=== PATIENT | male | born 1955 | race Caucasian/White ===

== ENCOUNTER 2017-07-07 07:32 | Emergency (ER) | payer MEDICARE, OTHER ==
[~2017-07-07] VITALS: Ht 175.3 cm; Wt 86.4 kg
[2017-07-07] MEDS ORDERED: normal saline 1000ML IV soln IVB ONE (08:05)
[2017-07-07] MEDS ORDERED: albuterol 2.5 MG/3 ML nebule NEB ONE (08:05)
[2017-07-07] MEDS ORDERED: ipratropium/albuterol 3ml nebule NEB ONE (08:05)
[2017-07-07 08:25] LABS: BASOPHILS % (AUTO) 0.7 % (0-1); EOSINOPHILS # (AUTO) 0.4 X10'3 (0-0.9); EOSINOPHILS % (AUTO) 5.4 % (0-6); HEMATOCRIT 43.1 % (42.0-52.0); HEMOGLOBIN 15.1 g/dl (14.0-17.9); LYMPHOCYTES # (AUTO) 1.9 X10'3 (1.1-4.8); LYMPHOCYTES % (AUTO) 28.9 % (21-51); MEAN CORPUSCULAR HEMOGLOBIN 32.4 PG (27.0-31.0); MEAN CORPUSCULAR HGB CONC 35.1 % (33.0-36.5); MEAN CORPUSCULAR VOLUME 92.4 FL (78-98); MEAN PLATELET VOLUME 8.1 FL (7.4-10.4); MONOCYTES # (AUTO) 0.6 X10'3 (0-0.9); MONOCYTES % (AUTO) 9.2 % (2-12); NEUTROPHILS # (AUTO) 3.7 X10'3 (1.8-7.7); NEUTROPHILS % (AUTO) 55.8 % (42-75); PLATELET COUNT 125 X10'3 (140-440); RED BLOOD COUNT 4.67 X10'6 (4.70-6.10); RED CELL DISTRIBUTION WIDTH 18.2 % (11.5-14.5); WHITE BLOOD COUNT 6.7 X10'3 (4.5-11.0)
[2017-07-07 08:36] LABS: INR 1.2 INR; PARTIAL THROMBOPLASTIN TIME 30 SECONDS (22-32); PROTHROMBIN TIME 12.4 SECONDS (9.0-12.0)
[2017-07-07 08:47] LABS: ALANINE AMINOTRANSFERASE 47 U/L (12-78); ALBUMIN 2.9 G/DL (3.4-5.0); ALBUMIN/GLOBULIN RATIO 0.6 (1.1-1.5); ALKALINE PHOSPHATASE 35 IU/L (46-116); ANION GAP 5 (8-16); ASPARTATE AMINO TRANSFERASE 108 U/L (10-37); BILIRUBIN,TOTAL 1.5 MG/DL (0.1-1.0); BLOOD UREA NITROGEN 8 MG/DL (7-18); CALCIUM 8.3 MG/DL (8.5-10.1); CHLORIDE 108 MMOL/L (99-107); CREATININE 1.14 MG/DL (0.60-1.10); GLUCOSE 80 MG/DL (70-104); POTASSIUM 3.6 MMOL/L (3.5-5.1); SODIUM 143 MMOL/L (135-145); TOTAL CARBON DIOXIDE 30.4 MMOL/L (24-32); TOTAL PROTEIN 7.9 G/DL (6.4-8.2); eGFR 66 ML/MIN
[2017-07-07] MEDS ORDERED: LACT10SO PO (08:59)
[2017-07-07 09:08] LABS: CLARITY,URINE CLEAR (Clear); COLOR,URINE YELLOW (Yellow); GLUCOSE, URINE NEGATIVE (Neg); KETONES,URINE NEGATIVE (Neg); LEUKOCYTE ESTERASE ,URINE NEGATIVE (Neg); NITRITES, URINE NEGATIVE (Neg); OCCULT BLOOD,URINE NEGATIVE (Neg); PROTEIN,URINE NEGATIVE (Neg); UA COLLECTION TYPE NON-SPECIFIED
[2017-07-07 09:44] VITALS: BP 161/98
== END 2017-07-07 09:47 | disposition home or self-care (01) ==
LOC: ER 07:32
DX: K72.90 Hepatic failure, unspecified without coma (principal); E03.9 Hypothyroidism, unspecified; J44.9 Chronic obstructive pulmonary disease, unspecified; G89.29 Other chronic pain; F17.200 Nicotine dependence, unspecified, uncomplicated; Z60.2 Problems related to living alone; Z79.899 Other long term (current) drug therapy
CPT/HCPCS: 36415; 71045; 80053; 81003; 82140; 85025; 85610; 85730; 93005; 94640; 94760; 96360; 99285; J7030

== ENCOUNTER 2017-12-12 13:12 | Inpatient (IN) | payer MEDICARE, MEDICAID ==
[~2017-12-12] VITALS: Ht 175.3 cm; Wt 78.0 kg
[~2017-12-12 13:12] MED LIST: LACT10SO PO; LEVO200T8 PO
[2017-12-12 14:33] LABS: BASOPHILS % (AUTO) 0.2 % (0-1); EOSINOPHILS # (AUTO) 0.2 X10'3 (0-0.9); EOSINOPHILS % (AUTO) 2.2 % (0-6); HEMATOCRIT 38.8 % (42.0-52.0); HEMOGLOBIN 13.8 g/dl (14.0-17.9); LYMPHOCYTES # (AUTO) 1.3 X10'3 (1.1-4.8); LYMPHOCYTES % (AUTO) 14.3 % (21-51); MEAN CORPUSCULAR HEMOGLOBIN 33.1 PG (27.0-31.0); MEAN CORPUSCULAR HGB CONC 35.4 % (33.0-36.5); MEAN CORPUSCULAR VOLUME 93.3 FL (78-98); MEAN PLATELET VOLUME 7.7 FL (7.4-10.4); MONOCYTES # (AUTO) 0.6 X10'3 (0-0.9); MONOCYTES % (AUTO) 6.4 % (2-12); NEUTROPHILS # (AUTO) 7.3 X10'3 (1.8-7.7); NEUTROPHILS % (AUTO) 76.9 % (42-75); PLATELET COUNT 113 X10'3 (140-440); RED BLOOD COUNT 4.16 X10'6 (4.70-6.10); RED CELL DISTRIBUTION WIDTH 17.7 % (11.5-14.5); WHITE BLOOD COUNT 9.4 X10'3 (4.5-11.0)
[2017-12-12 14:57] LABS: ALANINE AMINOTRANSFERASE 82 U/L (12-78); ALBUMIN 3.2 G/DL (3.4-5.0); ALBUMIN/GLOBULIN RATIO 0.8 (1.1-1.5); ALKALINE PHOSPHATASE 33 IU/L (46-116); ANION GAP 10 (8-16); ASPARTATE AMINO TRANSFERASE 148 U/L (10-37); BLOOD UREA NITROGEN 13 MG/DL (7-18); BUN/CREATININE RATIO 8.8 (5.4-32.0); CALCIUM 8.6 MG/DL (8.5-10.1); CHLORIDE 106 MMOL/L (99-107); CREATININE 1.48 MG/DL (0.60-1.10); GLUCOSE 92 MG/DL (70-104); POTASSIUM 3.5 MMOL/L (3.5-5.1); SODIUM 141 MMOL/L (135-145); TOTAL CARBON DIOXIDE 24.9 MMOL/L (24-32); eGFR 48 ML/MIN
[2017-12-12] MEDS ORDERED: normal saline 1000ML IV soln IVB ONE (15:05)
[2017-12-12] MEDS ORDERED: folic acid 1mg/0.2ml inj IV ONE (15:05)
[2017-12-12] MEDS ORDERED: thiamine 100mg/ml 2ml inj. IM ONE (15:05)
[2017-12-12 15:14] LABS: ETHANOL < 0.010 GM/DL (0.0-0.010)
[2017-12-12] MEDS ORDERED: levoTHYROXINE 100mcg tablet PO STA (16:00)
[2017-12-12] MEDS ORDERED: ALBU18HF2 (16:02)
[2017-12-12] MEDS ORDERED: CARV3.125 PO (16:02)
[2017-12-12] MEDS ORDERED: normal saline 1000ml 1,000 ML IV ONE (17:15)
[2017-12-12] MEDS ORDERED: nicotine 14mg patch - 24hr TD ONE (17:20)
[2017-12-12 17:28] LABS: CLARITY,URINE SLIGHTLY CLOUDY (Clear); COLOR,URINE BROWN (Yellow); GLUCOSE, URINE NEGATIVE (Neg); KETONES,URINE TRACE mg/dl (Neg); LEUKOCYTE ESTERASE ,URINE NEGATIVE (Neg); OCCULT BLOOD,URINE NEGATIVE (Neg); PH,URINE 5.5 (4.8-8.0); PROTEIN,URINE TRACE mg/dl (Neg)
[2017-12-12 17:33] LABS: UA COLLECTION TYPE URINAL
[2017-12-12 17:34] LABS: BACTERIA,URINE FEW /HPF (Neg); NITRITES, URINE NEGATIVE (Neg); RBC,URINE 0-2 /HPF (0-2); WBC,URINE 0-4 /HPF (0-4)
[2017-12-12 17:35] LABS: HYALINE CASTS 0-3 /LPF (NEGATIVE); MUCUS STRANDS FEW /LPF (Neg); SQUAMOUS EPITHELIAL CELL,UR FEW /LPF (FEW)
[2017-12-12 17:44] LABS: URINE AMPHETAMINE SCREEN NEGATIVE (Neg); URINE BARBITUATE SCREEN NEGATIVE (Neg); URINE BENZODIAZEPINES SCREEN NEGATIVE (Neg); URINE CANNABINOID SCREEN NEGATIVE (Neg); URINE COCAINE SCREEN NEGATIVE (Neg); URINE METHADONE SCREEN NEGATIVE (Neg); URINE OPIATE SCREEN POSITIVE (Neg); URINE PHENCYCLIDINE SCREEN NEGATIVE (Neg)
[2017-12-12] MEDS ORDERED: magnesium Cl slow-release 64mg tablet PO PRN (18:10)
[2017-12-12] MEDS ORDERED: magnesium 4gm in 100ml NS 100 ML IV PRN (18:10)
[2017-12-12] MEDS ORDERED: magnesium 1gm/100ml D5W IVPB 100 ML IV PRN (18:10)
[2017-12-12] MEDS ORDERED: acetaminophen 325mg tablet PO PRN (18:10)
[2017-12-12] MEDS ORDERED: mag hydrox/Alum hydrox/simeth 30ml oral suspension PO PRN (18:10)
[2017-12-12] MEDS ORDERED: potassium Cl 40MEQ/NS 500ml 500 ML IV PRN ×2 (18:10)
[2017-12-12] MEDS ORDERED: potassium Cl 20 mEq SR tablet PO PRN (18:10)
[2017-12-12] MEDS ORDERED: magnesium hydroxide 30ml (MOM) UD suspension PO PRN (18:10)
[2017-12-12 18:33] LABS: HEMOGLOBIN A1C 5.4 % (4.5-6.2)
[2017-12-12] MEDS: acetaminophen 325mg tablet PO PRN (19:14)
[2017-12-12] MEDS: sodium chloride 0.45% 1,000 ML IV SCH (19:20)
[2017-12-12] MEDS ORDERED: temazepam 15mg capsule PO PRN (21:00)
[2017-12-12] MEDS: heparin, porcine 5000 units/ml vial SQ SCH (22:32)
[2017-12-12] MEDS: lactulose 20gm/30ml cup PO SCH (22:32)
[2017-12-12 23:09] VITALS: BP 147/93
[2017-12-13] VITALS: BP 156/96
[2017-12-13] MEDS ORDERED: LORazepam 2 mg/ml vial IV PRN (05:35)
[2017-12-13] MEDS ORDERED: oxyCODONE IR 5mg (immed. release) tablet PO PRN (05:35)
[2017-12-13] MEDS: sodium chloride 0.45% 1,000 ML IV SCH ×2 (05:53→16:22)
[2017-12-13] MEDS: oxyCODONE IR 5mg (immed. release) tablet PO PRN ×2 (05:53→11:32)
[2017-12-13 06:07] LABS: BASOPHILS # (AUTO) 0.1 X10'3 (0-0.2); BASOPHILS % (AUTO) 0.9 % (0-1); EOSINOPHILS # (AUTO) 0.3 X10'3 (0-0.9); EOSINOPHILS % (AUTO) 4.8 % (0-6); HEMATOCRIT 39.7 % (42.0-52.0); HEMOGLOBIN 13.8 g/dl (14.0-17.9); LYMPHOCYTES # (AUTO) 1.7 X10'3 (1.1-4.8); LYMPHOCYTES % (AUTO) 31.1 % (21-51); MEAN CORPUSCULAR HEMOGLOBIN 32.3 PG (27.0-31.0); MEAN CORPUSCULAR HGB CONC 34.7 % (33.0-36.5); MEAN CORPUSCULAR VOLUME 93.2 FL (78-98); MEAN PLATELET VOLUME 8.1 FL (7.4-10.4); MONOCYTES # (AUTO) 0.5 X10'3 (0-0.9); MONOCYTES % (AUTO) 9.3 % (2-12); NEUTROPHILS % (AUTO) 53.9 % (42-75); PLATELET COUNT 107 X10'3 (140-440); RED BLOOD COUNT 4.26 X10'6 (4.70-6.10); RED CELL DISTRIBUTION WIDTH 16.3 % (11.5-14.5); WHITE BLOOD COUNT 5.6 X10'3 (4.5-11.0)
[2017-12-13 06:14] LABS: ALANINE AMINOTRANSFERASE 81 U/L (12-78); ALBUMIN 2.9 G/DL (3.4-5.0); ALBUMIN/GLOBULIN RATIO 0.7 (1.1-1.5); ALKALINE PHOSPHATASE 30 IU/L (46-116); ANION GAP 9 (8-16); ASPARTATE AMINO TRANSFERASE 149 U/L (10-37); BILIRUBIN,TOTAL 2.3 MG/DL (0.1-1.0); BLOOD UREA NITROGEN 9 MG/DL (7-18); CALCIUM 8.2 MG/DL (8.5-10.1); CHLORIDE 108 MMOL/L (99-107); GLUCOSE 72 MG/DL (70-104); SODIUM 142 MMOL/L (135-145); TOTAL CARBON DIOXIDE 25.4 MMOL/L (24-32); TOTAL PROTEIN 6.8 G/DL (6.4-8.2); eGFR 76 ML/MIN
[2017-12-13 06:21] LABS: CHOL/HDL RATIO 3.2 (0.00-4.99); CHOLESTEROL 198 MG/DL (0-200); HDL CHOLESTEROL 61 MG/DL (35-60); LDL CHOLESTEROL 127 MG/DL (50-100); MAGNESIUM 1.7 MG/DL (1.5-2.4); TRIGLYCERIDES 51 MG/DL (20-135)
[2017-12-13 06:23] LABS: POTASSIUM 3.5 MMOL/L (3.5-5.1)
[2017-12-13] MEDS ORDERED: levoTHYROXINE 100mcg tablet PO SCH (07:00)
[2017-12-13 07:30] VITALS: BP 153/93
[2017-12-13] MEDS: K and/or MAG REPLACEMENT MC SCH (08:00)
[2017-12-13] MEDS: heparin, porcine 5000 units/ml vial SQ SCH ×2 (08:26→20:10)
[2017-12-13] MEDS: lactulose 20gm/30ml cup PO SCH ×3 (08:26→20:10)
[2017-12-13] MEDS: carVEDilol 3.125mg tablet PO SCH (08:26)
[2017-12-13] MEDS: levoTHYROXINE 100mcg tablet PO SCH (08:28)
[2017-12-13 11:34] VITALS: BP 147/88
[2017-12-13] MEDS: naproxen 500mg tablet PO SCH (17:32)
[2017-12-13 20:00] VITALS: BP 138/0
[2017-12-14] VITALS: BP 137/71
[2017-12-14] MEDS: sodium chloride 0.45% 1,000 ML IV SCH ×3 (01:58→20:42)
[2017-12-14 06:36] LABS: BASOPHILS % (AUTO) 0.3 % (0-1); EOSINOPHILS # (AUTO) 0.3 X10'3 (0-0.9); EOSINOPHILS % (AUTO) 4.7 % (0-6); HEMATOCRIT 38.5 % (42.0-52.0); HEMOGLOBIN 13.6 g/dl (14.0-17.9); LYMPHOCYTES # (AUTO) 1.3 X10'3 (1.1-4.8); LYMPHOCYTES % (AUTO) 20.1 % (21-51); MEAN CORPUSCULAR HEMOGLOBIN 32.9 PG (27.0-31.0); MEAN CORPUSCULAR HGB CONC 35.5 % (33.0-36.5); MEAN CORPUSCULAR VOLUME 92.7 FL (78-98); MEAN PLATELET VOLUME 7.9 FL (7.4-10.4); MONOCYTES # (AUTO) 0.6 X10'3 (0-0.9); NEUTROPHILS # (AUTO) 4.3 X10'3 (1.8-7.7); NEUTROPHILS % (AUTO) 65.9 % (42-75); PLATELET COUNT 102 X10'3 (140-440); RED BLOOD COUNT 4.15 X10'6 (4.70-6.10); RED CELL DISTRIBUTION WIDTH 17.3 % (11.5-14.5); WHITE BLOOD COUNT 6.5 X10'3 (4.5-11.0)
[2017-12-14 06:55] LABS: ALANINE AMINOTRANSFERASE 67 U/L (12-78); ALBUMIN 2.8 G/DL (3.4-5.0); ALBUMIN/GLOBULIN RATIO 0.7 (1.1-1.5); ALKALINE PHOSPHATASE 36 IU/L (46-116); ANION GAP 8 (8-16); ASPARTATE AMINO TRANSFERASE 123 U/L (10-37); BILIRUBIN,TOTAL 2.7 MG/DL (0.1-1.0); BLOOD UREA NITROGEN 9 MG/DL (7-18); BUN/CREATININE RATIO 8.5 (5.4-32.0); CALCIUM 7.8 MG/DL (8.5-10.1); CHLORIDE 105 MMOL/L (99-107); CREATININE 1.06 MG/DL (0.60-1.10); GLUCOSE 79 MG/DL (70-104); MAGNESIUM 1.5 MG/DL (1.5-2.4); POTASSIUM 3.4 MMOL/L (3.5-5.1); SODIUM 137 MMOL/L (135-145); TOTAL CARBON DIOXIDE 23.9 MMOL/L (24-32); TOTAL PROTEIN 6.6 G/DL (6.4-8.2); eGFR 71 ML/MIN
[2017-12-14 07:42] VITALS: BP 131/78
[2017-12-14] MEDS: K and/or MAG REPLACEMENT MC SCH (08:00)
[2017-12-14] MEDS: heparin, porcine 5000 units/ml vial SQ SCH ×2 (08:00→20:00)
[2017-12-14] MEDS: lactulose 20gm/30ml cup PO SCH ×3 (08:20→20:33)
[2017-12-14] MEDS: naproxen 500mg tablet PO SCH ×2 (08:21→16:28)
[2017-12-14] MEDS: carVEDilol 3.125mg tablet PO SCH (08:22)
[2017-12-14] MEDS: levoTHYROXINE 100mcg tablet PO SCH (08:26)
[2017-12-14] MEDS: potassium Cl 20 mEq SR tablet PO PRN ×3 (08:29→22:51)
[2017-12-14] MEDS: ondansetron/PF 4mg/2ml inj IV PRN (11:37)
[2017-12-14 12:10] VITALS: BP 134/88
[2017-12-14 20:00] VITALS: BP 123/71
[2017-12-15] VITALS: BP 113/68
[2017-12-15 05:42] LABS: BASOPHILS % (AUTO) 0.3 % (0-1); EOSINOPHILS # (AUTO) 0.3 X10'3 (0-0.9); EOSINOPHILS % (AUTO) 4.4 % (0-6); HEMATOCRIT 39.4 % (42.0-52.0); HEMOGLOBIN 13.8 g/dl (14.0-17.9); LYMPHOCYTES # (AUTO) 1.4 X10'3 (1.1-4.8); LYMPHOCYTES % (AUTO) 17.6 % (21-51); MEAN CORPUSCULAR HGB CONC 35.1 % (33.0-36.5); MONOCYTES # (AUTO) 0.8 X10'3 (0-0.9); MONOCYTES % (AUTO) 10.4 % (2-12); NEUTROPHILS # (AUTO) 5.2 X10'3 (1.8-7.7); NEUTROPHILS % (AUTO) 67.3 % (42-75); PLATELET COUNT 89 X10'3 (140-440); RED BLOOD COUNT 4.19 X10'6 (4.70-6.10); RED CELL DISTRIBUTION WIDTH 17.5 % (11.5-14.5); WHITE BLOOD COUNT 7.7 X10'3 (4.5-11.0)
[2017-12-15 06:04] LABS: ALANINE AMINOTRANSFERASE 68 U/L (12-78); ALBUMIN 2.7 G/DL (3.4-5.0); ALBUMIN/GLOBULIN RATIO 0.7 (1.1-1.5); ALKALINE PHOSPHATASE 40 IU/L (46-116); ANION GAP 6 (8-16); ASPARTATE AMINO TRANSFERASE 110 U/L (10-37); BILIRUBIN,TOTAL 1.9 MG/DL (0.1-1.0); BLOOD UREA NITROGEN 9 MG/DL (7-18); CALCIUM 8.9 MG/DL (8.5-10.1); CHLORIDE 107 MMOL/L (99-107); CREATININE 1.12 MG/DL (0.60-1.10); GLUCOSE 74 MG/DL (70-104); MAGNESIUM 1.6 MG/DL (1.5-2.4); SODIUM 139 MMOL/L (135-145); TOTAL CARBON DIOXIDE 26.1 MMOL/L (24-32); TOTAL PROTEIN 6.4 G/DL (6.4-8.2); eGFR 67 ML/MIN
[2017-12-15 07:18] VITALS: BP 106/65
[2017-12-15] MEDS: K and/or MAG REPLACEMENT MC SCH (08:00)
[2017-12-15] MEDS: carVEDilol 3.125mg tablet PO SCH (08:00)
[2017-12-15] MEDS: heparin, porcine 5000 units/ml vial SQ SCH (08:00)
[2017-12-15] MEDS: levoTHYROXINE 100mcg tablet PO SCH (08:12)
[2017-12-15] MEDS: naproxen 500mg tablet PO SCH ×2 (08:12→15:45)
[2017-12-15] MEDS: lactulose 20gm/30ml cup PO SCH ×2 (08:13→13:04)
[2017-12-15] MEDS: sodium chloride 0.45% 1,000 ML IV SCH ×2 (08:15→16:06)
[2017-12-15] MEDS: acetaminophen 325mg tablet PO PRN (10:21)
[2017-12-15 12:41] VITALS: BP 132/75
[2017-12-15] MEDS: ondansetron/PF 4mg/2ml inj IV PRN (13:29)
[2017-12-15 15:48] LABS: HBSAG SCREEN Negative (Negative); HEP A AB, IGM Negative (Negative); HEP B CORE AB, IGM Negative (Negative); HEPATITIS C ANTIBODY 0.2 s/co ratio (0.0-0.9)
[2017-12-15] MEDS ORDERED: RIFA200T2 PO (16:02)
== END 2017-12-15 17:03 | disposition home or self-care (01) | DRG 442 ==
LOC: ER 13:13 → ED HOLD 18:06 → SUR 3N 22:00
PROVIDERS: ADMIT Family Medicine; ATTEND Internal Medicine
DX: K72.90 Hepatic failure, unspecified without coma (principal); R45.851 Suicidal ideations; N17.9 Acute kidney failure, unspecified; F33.2 Major depressive disorder, recurrent severe without psychotic features; E03.9 Hypothyroidism, unspecified; E86.0 Dehydration; F10.20 Alcohol dependence, uncomplicated; G89.29 Other chronic pain; M54.9 Dorsalgia, unspecified; F41.9 Anxiety disorder, unspecified; I10 Essential (primary) hypertension; J44.9 Chronic obstructive pulmonary disease, unspecified; K70.30 Alcoholic cirrhosis of liver without ascites; Z59.0 Homelessness; Z91.19 Patient's noncompliance with other medical treatment and regimen; Z79.899 Other long term (current) drug therapy
CPT/HCPCS: 36415; 70450; 71045; 76700; 80053; 80061; 80074; 80305; 80320; 81001; 82140; 83036; 83735; 84443; 84484; 85025; 87070; 93005; 96361; 96372; 96374; 97110; 97116; 97161; 97530; 97535; 99285; A6258; J1644; J2405; J3411; J3490; J7030

== ENCOUNTER 2017-12-15 15:15 | Inpatient (IN) | payer MEDICARE, MEDICAID ==
[~2017-12-15] VITALS: Ht 175.3 cm; Wt 95.5 kg
[~2017-12-15 15:15] MED LIST changes: +ALBU18HF2; +CARV3.125 PO
[2017-12-15] MEDS ORDERED: RIFA200T2 PO (16:02)
[2017-12-15] MEDS ORDERED: traZODone 50mg tablet PO PRN (17:50)
[2017-12-15] MEDS ORDERED: LORazepam 0.5 MG tablet PO PRN (17:50)
[2017-12-15 19:00] VITALS: BP 112/66
[2017-12-15] MEDS ORDERED: albuterol 2.5 MG/3 ML nebule NEB PRN (20:05)
[2017-12-15] MEDS ORDERED: magnesium hydroxide 30ml (MOM) UD suspension PO PRN (21:00)
[2017-12-15] MEDS ORDERED: mag hydrox/Alum hydrox/simeth 30ml oral suspension PO PRN (21:00)
[2017-12-16] MEDS: carVEDilol 3.125mg tablet PO SCH (07:40)
[2017-12-16] MEDS: levoTHYROXINE 100mcg tablet PO SCH (07:40)
[2017-12-16] MEDS: lactulose 20gm/30ml cup PO SCH (07:41)
[2017-12-16] MEDS: acetaminophen 325mg tablet PO PRN ×3 (07:41→22:24)
[2017-12-16] MEDS ORDERED: venlafaxine XR 37.5mg cap (Q24H) PO SCH (08:00)
[2017-12-16 08:15] VITALS: BP 114/75
[2017-12-16 09:44] LABS: CHOL/HDL RATIO 3.3 (0.00-4.99); CHOLESTEROL 177 MG/DL (0-200); HDL CHOLESTEROL 54 MG/DL (35-60); LDL CHOLESTEROL 113 MG/DL (50-100); TRIGLYCERIDES 60 MG/DL (20-135)
[2017-12-16 19:00] VITALS: BP 137/72
[2017-12-17] MEDS: acetaminophen 325mg tablet PO PRN (03:22)
[2017-12-17] MEDS: lactulose 20gm/30ml cup PO SCH (07:45)
[2017-12-17] MEDS: carVEDilol 3.125mg tablet PO SCH (07:45)
[2017-12-17] MEDS: venlafaxine XR 75mg capsule (Q24H) PO SCH (07:45)
[2017-12-17] MEDS: levoTHYROXINE 100mcg tablet PO SCH (07:45)
[2017-12-17 08:00] VITALS: BP 138/63
[2017-12-17 20:00] VITALS: BP 141/76
[2017-12-17] MEDS: lactobacillus rhamnosus 10,000 MMU CELLS/CAPSULE PO SCH (20:30)
[2017-12-17] MEDS: traMADol 50MG tablet PO PRN (20:32)
[2017-12-17] MEDS: traZODone 50mg tablet PO PRN (20:33)
[2017-12-18] MEDS: levoTHYROXINE 100mcg tablet PO SCH (07:12)
[2017-12-18 08:00] VITALS: BP 141/60
[2017-12-18] MEDS: carVEDilol 3.125mg tablet PO SCH (08:17)
[2017-12-18] MEDS: venlafaxine XR 75mg capsule (Q24H) PO SCH (08:17)
[2017-12-18] MEDS: lactobacillus rhamnosus 10,000 MMU CELLS/CAPSULE PO SCH ×2 (08:17→20:33)
[2017-12-18] MEDS: lactulose 20gm/30ml cup PO SCH (08:17)
[2017-12-18] MEDS: traMADol 50MG tablet PO PRN ×2 (08:52→19:17)
[2017-12-18 19:51] VITALS: BP 178/89
[2017-12-18] MEDS: traZODone 50mg tablet PO PRN (20:33)
[2017-12-19 07:45] VITALS: BP 161/77
[2017-12-19] MEDS: levoTHYROXINE 100mcg tablet PO SCH (07:50)
[2017-12-19] MEDS: lactulose 20gm/30ml cup PO SCH (07:50)
[2017-12-19] MEDS: venlafaxine XR 75mg capsule (Q24H) PO SCH (07:50)
[2017-12-19] MEDS: lactobacillus rhamnosus 10,000 MMU CELLS/CAPSULE PO SCH ×2 (07:50→20:53)
[2017-12-19] MEDS: carVEDilol 3.125mg tablet PO SCH (07:50)
[2017-12-19 20:00] VITALS: BP 149/87
[2017-12-19] MEDS: traZODone 50mg tablet PO PRN (20:54)
[2017-12-20 08:00] VITALS: BP 121/98
[2017-12-20] MEDS: lactulose 20gm/30ml cup PO SCH (08:00)
[2017-12-20] MEDS: carVEDilol 3.125mg tablet PO SCH (08:01)
[2017-12-20] MEDS: lactobacillus rhamnosus 10,000 MMU CELLS/CAPSULE PO SCH ×2 (08:01→20:53)
[2017-12-20] MEDS: venlafaxine XR 75mg capsule (Q24H) PO SCH (08:01)
[2017-12-20] MEDS: levoTHYROXINE 100mcg tablet PO SCH (08:01)
[2017-12-20] MEDS: traMADol 50MG tablet PO PRN (10:12)
[2017-12-20 20:00] VITALS: BP 160/84
[2017-12-21] MEDS: levoTHYROXINE 100mcg tablet PO SCH (07:28)
[2017-12-21 08:00] VITALS: BP 157/87
[2017-12-21] MEDS: lactobacillus rhamnosus 10,000 MMU CELLS/CAPSULE PO SCH ×2 (08:31→21:12)
[2017-12-21] MEDS: carVEDilol 3.125mg tablet PO SCH (08:31)
[2017-12-21] MEDS: lactulose 20gm/30ml cup PO SCH (08:32)
[2017-12-21] MEDS: venlafaxine XR 75mg capsule (Q24H) PO SCH (08:32)
[2017-12-21 19:49] VITALS: BP 133/70
[2017-12-21] MEDS: oxybutynin 5mg tablet PO SCH (21:12)
[2017-12-21] MEDS: traMADol 50MG tablet PO PRN (21:13)
[2017-12-21] MEDS: acetaminophen 325mg tablet PO PRN (21:14)
[2017-12-22] MEDS: traZODone 50mg tablet PO PRN (01:04)
[2017-12-22 02:30] VITALS: BP 153/79
[2017-12-22 02:31] VITALS: BP 150/70
[2017-12-22 02:32] VITALS: BP 144/81
[2017-12-22] MEDS: acetaminophen 325mg tablet PO PRN ×2 (03:10→19:19)
[2017-12-22] MEDS: levoTHYROXINE 100mcg tablet PO SCH (07:38)
[2017-12-22] MEDS: lactulose 20gm/30ml cup PO SCH (07:38)
[2017-12-22] MEDS: venlafaxine XR 75mg capsule (Q24H) PO SCH (07:38)
[2017-12-22] MEDS: oxybutynin 5mg tablet PO SCH ×2 (07:39→21:07)
[2017-12-22] MEDS: carVEDilol 3.125mg tablet PO SCH (07:39)
[2017-12-22] MEDS: lactobacillus rhamnosus 10,000 MMU CELLS/CAPSULE PO SCH ×2 (07:39→21:07)
[2017-12-22 08:56] VITALS: BP_SYST 110; BP_SYST 186; BP_DIAS 68; BP_DIAS 99
[2017-12-22 10:05] VITALS: BP 121/65
[2017-12-22] MEDS: traMADol 50MG tablet PO PRN ×3 (12:18→21:24)
[2017-12-22] MEDS ORDERED: tuberculin, purif. prot. deriv. 5 units/0.1ml ID ONE (17:45)
[2017-12-22 19:00] VITALS: BP 124/82
[2017-12-22] MEDS ORDERED: traZODone 50mg tablet PO PRN (20:25)
[2017-12-23] MEDS: lactulose 20gm/30ml cup PO SCH (07:41)
[2017-12-23] MEDS: levoTHYROXINE 100mcg tablet PO SCH (07:41)
[2017-12-23] MEDS: carVEDilol 3.125mg tablet PO SCH (07:41)
[2017-12-23] MEDS: lactobacillus rhamnosus 10,000 MMU CELLS/CAPSULE PO SCH ×2 (07:42→20:46)
[2017-12-23] MEDS: venlafaxine XR 75mg capsule (Q24H) PO SCH (07:42)
[2017-12-23] MEDS: oxybutynin 5mg tablet PO SCH ×2 (07:44→20:47)
[2017-12-23 08:15] VITALS: BP 137/104
[2017-12-23] MEDS: traMADol 50MG tablet PO PRN (19:14)
[2017-12-23] MEDS: acetaminophen 325mg tablet PO PRN (19:15)
[2017-12-23 20:00] VITALS: BP 105/72
[2017-12-23] MEDS: mirtazapine 15mg tablet PO SCH (20:47)
[2017-12-23 21:30] VITALS: BP 150/80
[2017-12-23 23:15] VITALS: BP 150/90
[2017-12-24] MEDS: lactulose 20gm/30ml cup PO SCH ×2 (07:47→21:51)
[2017-12-24] MEDS: oxybutynin 5mg tablet PO SCH ×2 (07:47→21:53)
[2017-12-24] MEDS: venlafaxine XR 75mg capsule (Q24H) PO SCH (07:48)
[2017-12-24] MEDS: lactobacillus rhamnosus 10,000 MMU CELLS/CAPSULE PO SCH ×2 (07:48→21:51)
[2017-12-24] MEDS: levoTHYROXINE 100mcg tablet PO SCH (07:48)
[2017-12-24] MEDS: carVEDilol 3.125mg tablet PO SCH (07:49)
[2017-12-24 08:00] VITALS: BP 106/62
[2017-12-24 09:39] VITALS: BP 138/92
[2017-12-24 09:41] VITALS: BP_SYST 132; BP_SYST 138; BP_SYST 144; BP_DIAS 78; BP_DIAS 89; BP_DIAS 92
[2017-12-24 18:49] LABS: BASOPHILS % (AUTO) 0.1 % (0-1); EOSINOPHILS # (AUTO) 0.3 X10'3 (0-0.9); EOSINOPHILS % (AUTO) 3.7 % (0-6); HEMATOCRIT 41.2 % (42.0-52.0); HEMOGLOBIN 14.3 g/dl (14.0-17.9); LYMPHOCYTES # (AUTO) 2.1 X10'3 (1.1-4.8); LYMPHOCYTES % (AUTO) 26.6 % (21-51); MEAN CORPUSCULAR HEMOGLOBIN 33.3 PG (27.0-31.0); MEAN CORPUSCULAR HGB CONC 34.7 % (33.0-36.5); MEAN CORPUSCULAR VOLUME 96.1 FL (78-98); MEAN PLATELET VOLUME 8.7 FL (7.4-10.4); NEUTROPHILS # (AUTO) 4.6 X10'3 (1.8-7.7); NEUTROPHILS % (AUTO) 56.6 % (42-75); PLATELET COUNT 132 X10'3 (140-440); RED BLOOD COUNT 4.29 X10'6 (4.70-6.10); RED CELL DISTRIBUTION WIDTH 18.3 % (11.5-14.5); WHITE BLOOD COUNT 8.1 X10'3 (4.5-11.0)
[2017-12-24 19:05] LABS: ALANINE AMINOTRANSFERASE 52 U/L (12-78); ALBUMIN 3.4 G/DL (3.4-5.0); ALBUMIN/GLOBULIN RATIO 0.7 (1.1-1.5); ALKALINE PHOSPHATASE 46 IU/L (46-116); ANION GAP 6 (8-16); ASPARTATE AMINO TRANSFERASE 54 U/L (10-37); BILIRUBIN,TOTAL 1.8 MG/DL (0.1-1.0); BLOOD UREA NITROGEN 15 MG/DL (7-18); BUN/CREATININE RATIO 14.7 (5.4-32.0); CALCIUM 8.9 MG/DL (8.5-10.1); CHLORIDE 105 MMOL/L (99-107); CREATININE 1.02 MG/DL (0.60-1.10); GLUCOSE 90 MG/DL (70-104); SODIUM 141 MMOL/L (135-145); TOTAL CARBON DIOXIDE 29.9 MMOL/L (24-32); TOTAL PROTEIN 8.1 G/DL (6.4-8.2); eGFR 74 ML/MIN
[2017-12-24 20:00] VITALS: BP 137/74
[2017-12-24] MEDS: mirtazapine 15mg tablet PO SCH (21:51)
[2017-12-25] MEDS: levoTHYROXINE 100mcg tablet PO SCH (07:06)
[2017-12-25 08:00] VITALS: BP 162/87
[2017-12-25] MEDS: carVEDilol 3.125mg tablet PO SCH (08:32)
[2017-12-25] MEDS: lactobacillus rhamnosus 10,000 MMU CELLS/CAPSULE PO SCH ×2 (08:32→20:56)
[2017-12-25] MEDS: lactulose 20gm/30ml cup PO SCH ×3 (08:33→20:56)
[2017-12-25] MEDS: venlafaxine XR 75mg capsule (Q24H) PO SCH (08:33)
[2017-12-25 14:00] VITALS: BP_SYST 119; BP_SYST 152; BP_SYST 161; BP_DIAS 73; BP_DIAS 84; BP_DIAS 91
[2017-12-25] MEDS ORDERED: lactulose 20gm/30ml cup PO ONE (15:10)
[2017-12-25 20:00] VITALS: BP_SYST 135; BP_SYST 145; BP_DIAS 77; BP_DIAS 81
[2017-12-25] MEDS: oxybutynin 5mg tablet PO SCH (20:54)
[2017-12-25] MEDS: mirtazapine 15mg tablet PO SCH (20:56)
[2017-12-26 08:00] VITALS: BP_SYST 110; BP_SYST 132; BP_SYST 151; BP_SYST 152; BP_DIAS 68; BP_DIAS 72; BP_DIAS 81; BP_DIAS 91
[2017-12-26] MEDS: carVEDilol 3.125mg tablet PO SCH (08:14)
[2017-12-26] MEDS: levoTHYROXINE 100mcg tablet PO SCH (08:15)
[2017-12-26] MEDS: lactobacillus rhamnosus 10,000 MMU CELLS/CAPSULE PO SCH ×2 (08:15→20:00)
[2017-12-26] MEDS: lactulose 20gm/30ml cup PO SCH ×3 (08:17→21:16)
[2017-12-26 09:03] LABS: INR 1.2 INR; PROTHROMBIN TIME 12.2 SECONDS (9.0-12.0)
[2017-12-26] MEDS: venlafaxine XR 75mg capsule (Q24H) PO SCH (09:12)
[2017-12-26 19:00] VITALS: BP 135/70
[2017-12-26 20:30] VITALS: BP 142/72
[2017-12-26] MEDS: oxybutynin 5mg tablet PO SCH (21:15)
[2017-12-26] MEDS: mirtazapine 15mg tablet PO SCH (21:16)
[2017-12-26 22:38] VITALS: BP 150/75
[2017-12-26 22:39] VITALS: BP 151/78
[2017-12-27 08:00] VITALS: BP_SYST 129; BP_SYST 130; BP_SYST 147; BP_SYST 152; BP_DIAS 65; BP_DIAS 74; BP_DIAS 80
[2017-12-27] MEDS: lactulose 20gm/30ml cup PO SCH ×3 (08:02→20:59)
[2017-12-27] MEDS: carVEDilol 3.125mg tablet PO SCH (08:03)
[2017-12-27] MEDS: levoTHYROXINE 100mcg tablet PO SCH (08:03)
[2017-12-27] MEDS: lactobacillus rhamnosus 10,000 MMU CELLS/CAPSULE PO SCH ×2 (08:03→20:58)
[2017-12-27] MEDS: venlafaxine XR 75mg capsule (Q24H) PO SCH (08:03)
[2017-12-27] MEDS ORDERED: tuberculin, purif. prot. deriv. 5 units/0.1ml ID ONE (08:30)
[2017-12-27 19:49] VITALS: BP 135/74
[2017-12-27] MEDS: mirtazapine 15mg tablet PO SCH (20:58)
[2017-12-27] MEDS: oxybutynin 5mg tablet PO SCH (20:58)
[2017-12-28] MEDS: levoTHYROXINE 100mcg tablet PO SCH (07:35)
[2017-12-28 08:00] VITALS: BP 129/54
[2017-12-28] MEDS: carVEDilol 3.125mg tablet PO SCH (08:07)
[2017-12-28] MEDS: venlafaxine XR 75mg capsule (Q24H) PO SCH (08:07)
[2017-12-28] MEDS: lactulose 20gm/30ml cup PO SCH ×3 (08:07→20:51)
[2017-12-28] MEDS: lactobacillus rhamnosus 10,000 MMU CELLS/CAPSULE PO SCH ×2 (08:07→20:49)
[2017-12-28 09:39] LABS: HBSAG SCREEN Negative (Negative)
[2017-12-28 12:32] VITALS: BP_SYST 110; BP_SYST 133; BP_DIAS 64; BP_DIAS 67; BP_DIAS 73
[2017-12-28 19:50] VITALS: BP 136/76
[2017-12-28 19:52] VITALS: BP 133/72
[2017-12-28 20:00] VITALS: BP 133/72
[2017-12-28] MEDS: oxybutynin 5mg tablet PO SCH (20:49)
[2017-12-28] MEDS: mirtazapine 15mg tablet PO SCH (20:49)
[2017-12-29 07:10] VITALS: BP 138/77
[2017-12-29] MEDS: levoTHYROXINE 100mcg tablet PO SCH (07:15)
[2017-12-29] MEDS: lactobacillus rhamnosus 10,000 MMU CELLS/CAPSULE PO SCH ×2 (07:15→20:59)
[2017-12-29] MEDS: venlafaxine XR 75mg capsule (Q24H) PO SCH (07:15)
[2017-12-29] MEDS: carVEDilol 3.125mg tablet PO SCH (07:15)
[2017-12-29] MEDS: lactulose 20gm/30ml cup PO SCH ×3 (07:15→20:57)
[2017-12-29 20:03] VITALS: BP 142/73
[2017-12-29] MEDS: mirtazapine 15mg tablet PO SCH (20:59)
[2017-12-29] MEDS: oxybutynin 5mg tablet PO SCH (21:50)
[2017-12-30] MEDS: lactobacillus rhamnosus 10,000 MMU CELLS/CAPSULE PO SCH ×2 (07:57→20:21)
[2017-12-30] MEDS: venlafaxine XR 75mg capsule (Q24H) PO SCH (07:58)
[2017-12-30] MEDS: levoTHYROXINE 100mcg tablet PO SCH (07:58)
[2017-12-30] MEDS: carVEDilol 3.125mg tablet PO SCH (07:58)
[2017-12-30] MEDS: lactulose 20gm/30ml cup PO SCH ×3 (07:59→20:22)
[2017-12-30 08:57] VITALS: BP 127/73
[2017-12-30] MEDS: acetaminophen 325mg tablet PO PRN (19:35)
[2017-12-30] MEDS: traMADol 50MG tablet PO PRN (19:35)
[2017-12-30 19:44] VITALS: BP 138/71
[2017-12-30] MEDS: mirtazapine 15mg tablet PO SCH (20:22)
[2017-12-30] MEDS: oxybutynin 5mg tablet PO SCH (20:22)
[2017-12-31] MEDS: acetaminophen 325mg tablet PO PRN (02:59)
[2017-12-31] MEDS: traMADol 50MG tablet PO PRN ×2 (03:00→14:19)
[2017-12-31 07:20] VITALS: BP 132/78
[2017-12-31] MEDS: levoTHYROXINE 100mcg tablet PO SCH (07:26)
[2017-12-31] MEDS: lactobacillus rhamnosus 10,000 MMU CELLS/CAPSULE PO SCH ×2 (07:27→20:00)
[2017-12-31] MEDS: lactulose 20gm/30ml cup PO SCH ×3 (07:27→22:18)
[2017-12-31] MEDS: venlafaxine XR 75mg capsule (Q24H) PO SCH (07:27)
[2017-12-31] MEDS: carVEDilol 3.125mg tablet PO SCH (07:27)
[2017-12-31 19:59] VITALS: BP 128/71
[2017-12-31] MEDS: mirtazapine 15mg tablet PO SCH (21:00)
[2017-12-31] MEDS: oxybutynin 5mg tablet PO SCH (21:00)
[2018-01-01] MEDS: lactobacillus rhamnosus 10,000 MMU CELLS/CAPSULE PO SCH ×2 (07:43→20:53)
[2018-01-01] MEDS: levoTHYROXINE 100mcg tablet PO SCH (07:43)
[2018-01-01] MEDS: carVEDilol 3.125mg tablet PO SCH (07:43)
[2018-01-01] MEDS: lactulose 20gm/30ml cup PO SCH ×3 (07:43→20:54)
[2018-01-01] MEDS: venlafaxine XR 75mg capsule (Q24H) PO SCH (07:43)
[2018-01-01 08:00] VITALS: BP 147/72
[2018-01-01 19:57] VITALS: BP 122/66
[2018-01-01] MEDS: mirtazapine 15mg tablet PO SCH (20:54)
[2018-01-01] MEDS: oxybutynin 5mg tablet PO SCH (20:54)
[2018-01-01] MEDS: acetaminophen 325mg tablet PO PRN (21:02)
[2018-01-02] MEDS: levoTHYROXINE 100mcg tablet PO SCH (07:30)
[2018-01-02 08:00] VITALS: BP 150/69
[2018-01-02] MEDS: lactulose 20gm/30ml cup PO SCH ×3 (08:11→20:37)
[2018-01-02] MEDS: lactobacillus rhamnosus 10,000 MMU CELLS/CAPSULE PO SCH ×2 (08:11→20:36)
[2018-01-02] MEDS: carVEDilol 3.125mg tablet PO SCH (08:11)
[2018-01-02] MEDS: venlafaxine XR 75mg capsule (Q24H) PO SCH (08:11)
[2018-01-02] MEDS: traMADol 50MG tablet PO PRN (13:20)
[2018-01-02 20:29] VITALS: BP 139/81
[2018-01-02] MEDS: mirtazapine 15mg tablet PO SCH (20:36)
[2018-01-02] MEDS: oxybutynin 5mg tablet PO SCH (20:37)
[2018-01-03] MEDS: levoTHYROXINE 100mcg tablet PO SCH (07:59)
[2018-01-03] MEDS: venlafaxine XR 75mg capsule (Q24H) PO SCH (07:59)
[2018-01-03] MEDS: lactobacillus rhamnosus 10,000 MMU CELLS/CAPSULE PO SCH ×2 (07:59→21:13)
[2018-01-03 08:00] VITALS: BP 139/71
[2018-01-03] MEDS: carVEDilol 3.125mg tablet PO SCH (08:00)
[2018-01-03] MEDS: lactulose 20gm/30ml cup PO SCH ×3 (09:04→21:14)
[2018-01-03 19:50] VITALS: BP 139/76
[2018-01-03] MEDS: mirtazapine 15mg tablet PO SCH (21:13)
[2018-01-03] MEDS: oxybutynin 5mg tablet PO SCH (21:14)
[2018-01-04] MEDS: levoTHYROXINE 100mcg tablet PO SCH (07:24)
[2018-01-04 08:00] VITALS: BP 142/81
[2018-01-04] MEDS: lactulose 20gm/30ml cup PO SCH ×3 (08:05→20:55)
[2018-01-04] MEDS: venlafaxine XR 75mg capsule (Q24H) PO SCH (08:05)
[2018-01-04] MEDS: carVEDilol 3.125mg tablet PO SCH (08:06)
[2018-01-04] MEDS: lactobacillus rhamnosus 10,000 MMU CELLS/CAPSULE PO SCH ×2 (08:07→20:56)
[2018-01-04] MEDS ORDERED: COR3.125T PO (09:54)
[2018-01-04] MEDS ORDERED: VENL150T3 PO (09:54)
[2018-01-04] MEDS ORDERED: OXYB5TAB11 PO (09:54)
[2018-01-04] MEDS ORDERED: LEVO200T8 PO (09:54)
[2018-01-04] MEDS ORDERED: MIRT15TA8 PO (09:54)
[2018-01-04] MEDS ORDERED: LACT10SO32 PO (09:54)
[2018-01-04] MEDS ORDERED: RIFA200T2 PO (09:54)
[2018-01-04 19:30] VITALS: BP 135/68
[2018-01-04] MEDS: oxybutynin 5mg tablet PO SCH (20:56)
[2018-01-04] MEDS: mirtazapine 15mg tablet PO SCH (20:56)
[2018-01-05] MEDS: levoTHYROXINE 100mcg tablet PO SCH (07:24)
[2018-01-05] MEDS: carVEDilol 3.125mg tablet PO SCH (08:03)
[2018-01-05] MEDS: venlafaxine XR 75mg capsule (Q24H) PO SCH (08:04)
[2018-01-05] MEDS: lactulose 20gm/30ml cup PO SCH (08:04)
[2018-01-05] MEDS: lactobacillus rhamnosus 10,000 MMU CELLS/CAPSULE PO SCH (08:04)
[2018-01-05 08:38] VITALS: BP 144/74
== END 2018-01-05 09:45 | disposition home or self-care (01) | DRG 885 ==
LOC: ADULT MH 15:15
PROVIDERS: ADMIT Psychiatry & Neurology Psychiatry; ATTEND Psychiatry & Neurology Psychiatry
DX: F33.2 Major depressive disorder, recurrent severe without psychotic features (principal); R45.851 Suicidal ideations; K72.90 Hepatic failure, unspecified without coma; K70.30 Alcoholic cirrhosis of liver without ascites; E03.9 Hypothyroidism, unspecified; F10.10 Alcohol abuse, uncomplicated; F41.9 Anxiety disorder, unspecified; G62.9 Polyneuropathy, unspecified; R19.7 Diarrhea, unspecified; M54.5 Low back pain; M54.6 Pain in thoracic spine; G89.29 Other chronic pain; M54.9 Dorsalgia, unspecified; I10 Essential (primary) hypertension; R32 Unspecified urinary incontinence; Z79.890 Hormone replacement therapy; Z59.0 Homelessness; W18.39XA Other fall on same level, initial encounter; Y93.89 Activity, other specified; Y92.238 Other place in hospital as the place of occurrence of the external cause; Y99.8 Other external cause status
CPT/HCPCS: 36415; 80053; 80061; 82140; 82607; 82746; 84443; 85025; 85610; 87070; 87340; 97116; 97161

== ENCOUNTER 2018-03-24 10:02 | Inpatient (IN) | payer MEDICARE, MEDICAID ==
[~2018-03-24] VITALS: Ht 175.3 cm; Wt 72.7 kg
[~2018-03-24 10:02] MED LIST changes: -CARV3.125 PO; +COR3.125T PO; +LACT10SO32 PO; +MIRT15TA8 PO; +OXYB5TAB11 PO; +RIFA200T2 PO; +VENL150T3 PO
[2018-03-24 11:05] LABS: BASOPHILS % (AUTO) 0.3 % (0-1); EOSINOPHILS # (AUTO) 0.3 X10'3 (0-0.9); EOSINOPHILS % (AUTO) 4.1 % (0-6); HEMOGLOBIN 16.7 g/dl (14.0-17.9); LYMPHOCYTES % (AUTO) 28.5 % (21-51); MEAN CORPUSCULAR HEMOGLOBIN 31.9 PG (27.0-31.0); MEAN CORPUSCULAR VOLUME 93.8 FL (78-98); MEAN PLATELET VOLUME 8.1 FL (7.4-10.4); MONOCYTES # (AUTO) 0.5 X10'3 (0-0.9); MONOCYTES % (AUTO) 7.5 % (2-12); NEUTROPHILS # (AUTO) 4.2 X10'3 (1.8-7.7); NEUTROPHILS % (AUTO) 59.6 % (42-75); PLATELET COUNT 139 X10'3 (140-440); RED BLOOD COUNT 5.22 X10'6 (4.70-6.10); WHITE BLOOD COUNT 7.1 X10'3 (4.5-11.0)
[2018-03-24 11:15] LABS: ALANINE AMINOTRANSFERASE 60 U/L (12-78); ALBUMIN 3.5 G/DL (3.4-5.0); ALBUMIN/GLOBULIN RATIO 0.8 (1.1-1.5); ALKALINE PHOSPHATASE 43 IU/L (46-116); ANION GAP 8 (8-16); ASPARTATE AMINO TRANSFERASE 113 U/L (10-37); BILIRUBIN,TOTAL 1.5 MG/DL (0.1-1.0); BLOOD UREA NITROGEN 9 MG/DL (7-18); BUN/CREATININE RATIO 7.4 (5.4-32.0); CALCIUM 9.2 MG/DL (8.5-10.1); CHLORIDE 103 MMOL/L (99-107); CREATININE 1.22 MG/DL (0.60-1.10); GLUCOSE 77 MG/DL (70-104); POTASSIUM 3.9 MMOL/L (3.5-5.1); SODIUM 139 MMOL/L (135-145); TOTAL CARBON DIOXIDE 27.7 MMOL/L (24-32); TOTAL PROTEIN 8.1 G/DL (6.4-8.2); eGFR 60 ML/MIN
[2018-03-24 13:52] LABS: CLARITY,URINE SLIGHTLY CLOUDY (Clear); COLOR,URINE YELLOW (Yellow); GLUCOSE, URINE NEGATIVE (Neg); KETONES,URINE NEGATIVE (Neg); LEUKOCYTE ESTERASE ,URINE SMALL (Neg); NITRITES, URINE NEGATIVE (Neg); OCCULT BLOOD,URINE NEGATIVE (Neg); PH,URINE 8.5 (4.8-8.0); PROTEIN,URINE NEGATIVE (Neg)
[2018-03-24 13:54] LABS: UA COLLECTION TYPE URINAL
[2018-03-24 14:04] LABS: URINE AMPHETAMINE SCREEN NEGATIVE (Neg); URINE BARBITUATE SCREEN NEGATIVE (Neg); URINE BENZODIAZEPINES SCREEN NEGATIVE (Neg); URINE CANNABINOID SCREEN NEGATIVE (Neg); URINE COCAINE SCREEN NEGATIVE (Neg); URINE METHADONE SCREEN NEGATIVE (Neg); URINE OPIATE SCREEN NEGATIVE (Neg); URINE PHENCYCLIDINE SCREEN NEGATIVE (Neg)
[2018-03-24 14:05] LABS: RBC,URINE 0-2 /HPF (0-2)
[2018-03-24 14:06] LABS: BACTERIA,URINE 1+ /HPF (Neg); SQUAMOUS EPITHELIAL CELL,UR FEW /LPF (FEW)
[2018-03-24 14:10] LABS: ETHANOL < 0.010 GM/DL (0.0-0.010); TROPONIN I < 0.04 NG/ML (0.0-0.05)
[2018-03-24] MEDS ORDERED: lactulose 20gm/30ml cup PO ONE (14:25)
[2018-03-24] MEDS ORDERED: potassium Cl 40MEQ/NS 500ml 500 ML IV PRN ×2 (15:05)
[2018-03-24] MEDS ORDERED: acetaminophen 325mg tablet PO PRN ×2 (15:05)
[2018-03-24] MEDS ORDERED: ondansetron/PF 4mg/2ml inj IV PRN (15:05)
[2018-03-24] MEDS ORDERED: potassium Cl 20 mEq SR tablet PO PRN ×2 (15:05)
[2018-03-24] MEDS ORDERED: magnesium 4gm in 100ml NS 100 ML IV PRN (15:05)
[2018-03-24] MEDS ORDERED: mag hydrox/Alum hydrox/simeth 30ml oral suspension PO PRN (15:05)
[2018-03-24] MEDS ORDERED: magnesium Cl slow-release 64mg tablet PO PRN (15:05)
[2018-03-24] MEDS ORDERED: morphine 2 MG/ML inj. syringe IV PRN ×2 (15:05)
[2018-03-24 17:45] VITALS: BP 175/106
[2018-03-24 17:46] VITALS: BP 139/93
[2018-03-24] MEDS: HYDROcodone/acetaminophen 10/325mg tab PO PRN (18:46)
[2018-03-24 19:15] VITALS: BP 173/102
[2018-03-24 20:00] VITALS: BP_SYST 168; BP_SYST 170; BP_SYST 173; BP_DIAS 102; BP_DIAS 104; BP_DIAS 106
[2018-03-24] MEDS: mirtazapine 15mg tablet PO SCH (20:58)
[2018-03-24] MEDS: lactulose 20gm/30ml cup PO SCH (20:58)
[2018-03-24] MEDS: oxybutynin 5mg tablet PO SCH (20:58)
[2018-03-25 00:11] VITALS: BP 152/99
[2018-03-25 05:59] LABS: BASOPHILS % (AUTO) 0.6 % (0-1); EOSINOPHILS # (AUTO) 0.4 X10'3 (0-0.9); EOSINOPHILS % (AUTO) 5.9 % (0-6); HEMATOCRIT 46.8 % (42.0-52.0); LYMPHOCYTES # (AUTO) 2.2 X10'3 (1.1-4.8); MEAN CORPUSCULAR HEMOGLOBIN 31.9 PG (27.0-31.0); MEAN CORPUSCULAR HGB CONC 34.3 % (33.0-36.5); MEAN PLATELET VOLUME 8.4 FL (7.4-10.4); MONOCYTES # (AUTO) 0.7 X10'3 (0-0.9); MONOCYTES % (AUTO) 11.6 % (2-12); NEUTROPHILS # (AUTO) 2.7 X10'3 (1.8-7.7); NEUTROPHILS % (AUTO) 44.9 % (42-75); PLATELET COUNT 132 X10'3 (140-440); RED BLOOD COUNT 5.03 X10'6 (4.70-6.10); RED CELL DISTRIBUTION WIDTH 14.8 % (11.5-14.5); WHITE BLOOD COUNT 5.9 X10'3 (4.5-11.0)
[2018-03-25 06:17] LABS: INR 1.3 INR; PROTHROMBIN TIME 12.9 SECONDS (9.0-12.0)
[2018-03-25 07:00] VITALS: BP 162/90
[2018-03-25] MEDS ORDERED: non-formulary drug (Levothyroxine Sodium 1 TAB) PO SCH (08:00)
[2018-03-25] MEDS: K and/or MAG REPLACEMENT MC SCH (08:00)
[2018-03-25] MEDS: lactulose 20gm/30ml cup PO SCH ×3 (08:27→21:54)
[2018-03-25] MEDS: carVEDilol 3.125mg tablet PO SCH (08:28)
[2018-03-25] MEDS: CefTRIAXone 2gm/D5W 50ml 50 ML IV SCH (08:28)
[2018-03-25] MEDS: levoTHYROXINE 100mcg tablet PO SCH (08:28)
[2018-03-25] MEDS: venlafaxine XR 75mg capsule (Q24H) PO SCH (08:29)
[2018-03-25 09:15] LABS: ALANINE AMINOTRANSFERASE 54 U/L (12-78); ALBUMIN 3.2 G/DL (3.4-5.0); ALBUMIN/GLOBULIN RATIO 0.8 (1.1-1.5); ALKALINE PHOSPHATASE 40 IU/L (46-116); ANION GAP 13 (8-16); ASPARTATE AMINO TRANSFERASE 106 U/L (10-37); BILIRUBIN,TOTAL 1.5 MG/DL (0.1-1.0); BLOOD UREA NITROGEN 10 MG/DL (7-18); BUN/CREATININE RATIO 8.9 (5.4-32.0); CALCIUM 8.8 MG/DL (8.5-10.1); CHLORIDE 106 MMOL/L (99-107); CREATININE 1.12 MG/DL (0.60-1.10); GLUCOSE 79 MG/DL (70-104); MAGNESIUM 1.8 MG/DL (1.5-2.4); POTASSIUM 3.6 MMOL/L (3.5-5.1); SODIUM 141 MMOL/L (135-145); TOTAL CARBON DIOXIDE 22.1 MMOL/L (24-32); TOTAL PROTEIN 7.3 G/DL (6.4-8.2); eGFR 67 ML/MIN
[2018-03-25 12:00] VITALS: BP 160/98
[2018-03-25 15:44] VITALS: BP 152/78
[2018-03-25] MEDS ORDERED: lactulose 20gm/30ml cup RC ONE (16:45)
[2018-03-25 20:00] VITALS: BP_SYST 138; BP_SYST 148; BP_DIAS 76; BP_DIAS 83
[2018-03-25] MEDS: mirtazapine 15mg tablet PO SCH (21:54)
[2018-03-25] MEDS: lactobacillus rhamnosus 10,000 MMU CELLS/CAPSULE PO SCH (21:54)
[2018-03-25] MEDS: oxybutynin 5mg tablet PO SCH (21:54)
[2018-03-26] VITALS: BP 166/90
[2018-03-26 05:03] LABS: BASOPHILS % (AUTO) 0.3 % (0-1); EOSINOPHILS # (AUTO) 0.3 X10'3 (0-0.9); EOSINOPHILS % (AUTO) 3.7 % (0-6); HEMATOCRIT 49.6 % (42.0-52.0); HEMOGLOBIN 16.9 g/dl (14.0-17.9); LYMPHOCYTES # (AUTO) 1.8 X10'3 (1.1-4.8); LYMPHOCYTES % (AUTO) 20.2 % (21-51); MEAN CORPUSCULAR HEMOGLOBIN 31.8 PG (27.0-31.0); MEAN CORPUSCULAR HGB CONC 34.2 % (33.0-36.5); MEAN CORPUSCULAR VOLUME 93.1 FL (78-98); MEAN PLATELET VOLUME 8.4 FL (7.4-10.4); MONOCYTES # (AUTO) 0.7 X10'3 (0-0.9); MONOCYTES % (AUTO) 8.4 % (2-12); NEUTROPHILS % (AUTO) 67.4 % (42-75); PLATELET COUNT 146 X10'3 (140-440); RED BLOOD COUNT 5.33 X10'6 (4.70-6.10); RED CELL DISTRIBUTION WIDTH 14.7 % (11.5-14.5); WHITE BLOOD COUNT 8.9 X10'3 (4.5-11.0)
[2018-03-26 05:20] LABS: INR 1.3 INR; PROTHROMBIN TIME 12.8 SECONDS (9.0-12.0)
[2018-03-26 05:26] LABS: ALANINE AMINOTRANSFERASE 54 U/L (12-78); ALBUMIN 3.3 G/DL (3.4-5.0); ALBUMIN/GLOBULIN RATIO 0.8 (1.1-1.5); ALKALINE PHOSPHATASE 41 IU/L (46-116); ANION GAP 11 (8-16); ASPARTATE AMINO TRANSFERASE 102 U/L (10-37); BILIRUBIN,TOTAL 1.6 MG/DL (0.1-1.0); BLOOD UREA NITROGEN 13 MG/DL (7-18); BUN/CREATININE RATIO 11.7 (5.4-32.0); CALCIUM 8.9 MG/DL (8.5-10.1); CHLORIDE 108 MMOL/L (99-107); CREATININE 1.11 MG/DL (0.60-1.10); GLUCOSE 109 MG/DL (70-104); MAGNESIUM 1.8 MG/DL (1.5-2.4); POTASSIUM 3.7 MMOL/L (3.5-5.1); SODIUM 143 MMOL/L (135-145); TOTAL CARBON DIOXIDE 24.2 MMOL/L (24-32); TOTAL PROTEIN 7.7 G/DL (6.4-8.2); eGFR 67 ML/MIN
[2018-03-26] MEDS: K and/or MAG REPLACEMENT MC SCH (07:55)
[2018-03-26 08:00] VITALS: BP_SYST 116; BP_SYST 118; BP_SYST 123; BP_SYST 135; BP_DIAS 74; BP_DIAS 79; BP_DIAS 81; BP_DIAS 90
[2018-03-26] MEDS: levoTHYROXINE 100mcg tablet PO SCH (08:00)
[2018-03-26] MEDS: lactulose 20gm/30ml cup PO SCH ×3 (08:09→20:30)
[2018-03-26] MEDS: carVEDilol 3.125mg tablet PO SCH (08:09)
[2018-03-26] MEDS: CefTRIAXone 2gm/D5W 50ml 50 ML IV SCH (08:09)
[2018-03-26] MEDS: lactobacillus rhamnosus 10,000 MMU CELLS/CAPSULE PO SCH ×2 (08:10→20:32)
[2018-03-26] MEDS: venlafaxine XR 75mg capsule (Q24H) PO SCH (08:10)
[2018-03-26 11:00] VITALS: BP 118/79
[2018-03-26 19:00] VITALS: BP 154/82
[2018-03-26] MEDS: oxybutynin 5mg tablet PO SCH (20:32)
[2018-03-26] MEDS: mirtazapine 15mg tablet PO SCH (20:33)
[2018-03-26] MEDS: HYDROcodone/acetaminophen 10/325mg tab PO PRN (23:52)
[2018-03-27] VITALS: BP_SYST 161; BP_SYST 163; BP_SYST 187; BP_DIAS 92; BP_DIAS 93; BP_DIAS 94
[2018-03-27 06:05] LABS: BASOPHILS % (AUTO) 0.4 % (0-1); EOSINOPHILS # (AUTO) 0.4 X10'3 (0-0.9); EOSINOPHILS % (AUTO) 4.9 % (0-6); HEMATOCRIT 46.9 % (42.0-52.0); INR 1.2 INR; LYMPHOCYTES % (AUTO) 23.2 % (21-51); MEAN CORPUSCULAR HEMOGLOBIN 31.9 PG (27.0-31.0); MEAN CORPUSCULAR HGB CONC 34.1 % (33.0-36.5); MEAN CORPUSCULAR VOLUME 93.5 FL (78-98); MEAN PLATELET VOLUME 8.9 FL (7.4-10.4); MONOCYTES # (AUTO) 0.7 X10'3 (0-0.9); MONOCYTES % (AUTO) 8.3 % (2-12); NEUTROPHILS # (AUTO) 5.5 X10'3 (1.8-7.7); NEUTROPHILS % (AUTO) 63.2 % (42-75); PLATELET COUNT 141 X10'3 (140-440); PROTHROMBIN TIME 12.1 SECONDS (9.0-12.0); RED BLOOD COUNT 5.01 X10'6 (4.70-6.10); WHITE BLOOD COUNT 8.8 X10'3 (4.5-11.0)
[2018-03-27 06:14] LABS: ALANINE AMINOTRANSFERASE 49 U/L (12-78); ALBUMIN 3.1 G/DL (3.4-5.0); ALBUMIN/GLOBULIN RATIO 0.7 (1.1-1.5); ALKALINE PHOSPHATASE 35 IU/L (46-116); ANION GAP 10 (8-16); ASPARTATE AMINO TRANSFERASE 78 U/L (10-37); BILIRUBIN,TOTAL 1.6 MG/DL (0.1-1.0); BLOOD UREA NITROGEN 16 MG/DL (7-18); BUN/CREATININE RATIO 14.4 (5.4-32.0); CALCIUM 8.4 MG/DL (8.5-10.1); CHLORIDE 108 MMOL/L (99-107); CREATININE 1.11 MG/DL (0.60-1.10); GLUCOSE 87 MG/DL (70-104); MAGNESIUM 1.9 MG/DL (1.5-2.4); POTASSIUM 3.7 MMOL/L (3.5-5.1); SODIUM 145 MMOL/L (135-145); TOTAL CARBON DIOXIDE 27.1 MMOL/L (24-32); TOTAL PROTEIN 7.3 G/DL (6.4-8.2); eGFR 67 ML/MIN
[2018-03-27 08:00] VITALS: BP_SYST 125; BP_SYST 145; BP_SYST 157; BP_SYST 159; BP_DIAS 74; BP_DIAS 82; BP_DIAS 85; BP_DIAS 91
[2018-03-27] MEDS: K and/or MAG REPLACEMENT MC SCH (08:00)
[2018-03-27] MEDS: levoTHYROXINE 100mcg tablet PO SCH (08:04)
[2018-03-27] MEDS: lactulose 20gm/30ml cup PO SCH ×3 (08:05→20:07)
[2018-03-27] MEDS: CefTRIAXone 2gm/D5W 50ml 50 ML IV SCH (08:05)
[2018-03-27] MEDS: carVEDilol 3.125mg tablet PO SCH (08:07)
[2018-03-27] MEDS: lactobacillus rhamnosus 10,000 MMU CELLS/CAPSULE PO SCH ×2 (08:07→20:07)
[2018-03-27] MEDS: venlafaxine XR 75mg capsule (Q24H) PO SCH (08:08)
[2018-03-27 11:48] VITALS: BP 123/76
[2018-03-27 19:00] VITALS: BP 145/87
[2018-03-27 20:00] VITALS: BP_SYST 119; BP_SYST 139; BP_SYST 141; BP_DIAS 61; BP_DIAS 64; BP_DIAS 76
[2018-03-27] MEDS: oxybutynin 5mg tablet PO SCH (20:07)
[2018-03-27] MEDS: mirtazapine 15mg tablet PO SCH (20:08)
[2018-03-27] MEDS: HYDROcodone/acetaminophen 5mg/325mg tablet PO PRN (20:33)
[2018-03-28] VITALS (7 sets, daily range): BP systolic 99–137; BP diastolic 61–97
[2018-03-28 06:13] LABS: BASOPHILS % (AUTO) 0.4 % (0-1); EOSINOPHILS # (AUTO) 0.4 X10'3 (0-0.9); EOSINOPHILS % (AUTO) 4.1 % (0-6); HEMOGLOBIN 15.1 g/dl (14.0-17.9); LYMPHOCYTES # (AUTO) 2.6 X10'3 (1.1-4.8); LYMPHOCYTES % (AUTO) 26.5 % (21-51); MEAN CORPUSCULAR HEMOGLOBIN 31.6 PG (27.0-31.0); MEAN CORPUSCULAR HGB CONC 33.7 % (33.0-36.5); MEAN CORPUSCULAR VOLUME 93.7 FL (78-98); MEAN PLATELET VOLUME 8.8 FL (7.4-10.4); MONOCYTES # (AUTO) 0.8 X10'3 (0-0.9); MONOCYTES % (AUTO) 8.1 % (2-12); NEUTROPHILS # (AUTO) 5.9 X10'3 (1.8-7.7); NEUTROPHILS % (AUTO) 60.9 % (42-75); PLATELET COUNT 126 X10'3 (140-440); RED CELL DISTRIBUTION WIDTH 15.4 % (11.5-14.5); WHITE BLOOD COUNT 9.7 X10'3 (4.5-11.0)
[2018-03-28 06:36] LABS: INR 1.3 INR; PROTHROMBIN TIME 12.7 SECONDS (9.0-12.0)
[2018-03-28 06:43] LABS: ALANINE AMINOTRANSFERASE 48 U/L (12-78); ALBUMIN/GLOBULIN RATIO 0.8 (1.1-1.5); ALKALINE PHOSPHATASE 34 IU/L (46-116); ANION GAP 8 (8-16); ASPARTATE AMINO TRANSFERASE 73 U/L (10-37); BILIRUBIN,TOTAL 1.6 MG/DL (0.1-1.0); BLOOD UREA NITROGEN 18 MG/DL (7-18); BUN/CREATININE RATIO 17.1 (5.4-32.0); CALCIUM 8.5 MG/DL (8.5-10.1); CHLORIDE 107 MMOL/L (99-107); CREATININE 1.05 MG/DL (0.60-1.10); GLUCOSE 76 MG/DL (70-104); MAGNESIUM 1.8 MG/DL (1.5-2.4); POTASSIUM 3.6 MMOL/L (3.5-5.1); SODIUM 144 MMOL/L (135-145); TOTAL CARBON DIOXIDE 29.2 MMOL/L (24-32); eGFR 72 ML/MIN
[2018-03-28] MEDS: levoTHYROXINE 100mcg tablet PO SCH (07:05)
[2018-03-28] MEDS: K and/or MAG REPLACEMENT MC SCH (08:00)
[2018-03-28] MEDS: lactulose 20gm/30ml cup PO SCH ×7 (08:02→23:31)
[2018-03-28] MEDS: carVEDilol 3.125mg tablet PO SCH (08:02)
[2018-03-28] MEDS: lactobacillus rhamnosus 10,000 MMU CELLS/CAPSULE PO SCH ×2 (08:03→19:45)
[2018-03-28] MEDS: venlafaxine XR 75mg capsule (Q24H) PO SCH (08:03)
[2018-03-28] MEDS: CefTRIAXone 2gm/D5W 50ml 50 ML IV SCH (08:34)
[2018-03-28] MEDS: HYDROcodone/acetaminophen 5mg/325mg tablet PO PRN ×3 (08:54→19:55)
[2018-03-28] MEDS ORDERED: levoTHYROXINE sod inj. 100mcg/5 ml vial IV ONE (13:10)
[2018-03-28] MEDS ORDERED: magnesium Cl slow-release 64mg tablet PO PRN (17:15)
[2018-03-28] MEDS ORDERED: potassium Cl 40MEQ/NS 500ml 500 ML IV PRN ×2 (17:15)
[2018-03-28] MEDS ORDERED: magnesium 4gm in 100ml NS 100 ML IV PRN (17:15)
[2018-03-28] MEDS ORDERED: potassium Cl 20 mEq SR tablet PO PRN (17:15)
[2018-03-28] MEDS: oxybutynin 5mg tablet PO SCH (21:02)
[2018-03-28] MEDS: mirtazapine 15mg tablet PO SCH (21:02)
[2018-03-29] VITALS: BP 118/72
[2018-03-29] MEDS: lactulose 20gm/30ml cup PO SCH ×10 (00:39→21:05)
[2018-03-29 05:52] LABS: BASOPHILS % (AUTO) 0.5 % (0-1); EOSINOPHILS # (AUTO) 0.3 X10'3 (0-0.9); EOSINOPHILS % (AUTO) 4.4 % (0-6); HEMATOCRIT 44.1 % (42.0-52.0); HEMOGLOBIN 15.1 g/dl (14.0-17.9); LYMPHOCYTES # (AUTO) 2.3 X10'3 (1.1-4.8); LYMPHOCYTES % (AUTO) 33.4 % (21-51); MEAN CORPUSCULAR HEMOGLOBIN 31.7 PG (27.0-31.0); MEAN CORPUSCULAR HGB CONC 34.3 % (33.0-36.5); MEAN CORPUSCULAR VOLUME 92.6 FL (78-98); MEAN PLATELET VOLUME 9.1 FL (7.4-10.4); MONOCYTES # (AUTO) 0.9 X10'3 (0-0.9); MONOCYTES % (AUTO) 12.8 % (2-12); NEUTROPHILS # (AUTO) 3.4 X10'3 (1.8-7.7); NEUTROPHILS % (AUTO) 48.9 % (42-75); PLATELET COUNT 115 X10'3 (140-440); RED BLOOD COUNT 4.76 X10'6 (4.70-6.10); RED CELL DISTRIBUTION WIDTH 14.6 % (11.5-14.5); WHITE BLOOD COUNT 6.9 X10'3 (4.5-11.0)
[2018-03-29 06:11] LABS: INR 1.3 INR; PROTHROMBIN TIME 13.2 SECONDS (9.0-12.0)
[2018-03-29 06:44] LABS: ALANINE AMINOTRANSFERASE 48 U/L (12-78); ALBUMIN/GLOBULIN RATIO 0.7 (1.1-1.5); ALKALINE PHOSPHATASE 36 IU/L (46-116); ANION GAP 9 (8-16); ASPARTATE AMINO TRANSFERASE 72 U/L (10-37); BILIRUBIN,TOTAL 1.3 MG/DL (0.1-1.0); BLOOD UREA NITROGEN 14 MG/DL (7-18); BUN/CREATININE RATIO 13.3 (5.4-32.0); CALCIUM 8.5 MG/DL (8.5-10.1); CHLORIDE 107 MMOL/L (99-107); CREATININE 1.05 MG/DL (0.60-1.10); GLUCOSE 74 MG/DL (70-104); MAGNESIUM 1.6 MG/DL (1.5-2.4); POTASSIUM 3.3 MMOL/L (3.5-5.1); SODIUM 144 MMOL/L (135-145); TOTAL CARBON DIOXIDE 27.8 MMOL/L (24-32); TOTAL PROTEIN 7.1 G/DL (6.4-8.2); eGFR 72 ML/MIN
[2018-03-29 07:00] VITALS: BP 151/84
[2018-03-29] MEDS: lactobacillus rhamnosus 10,000 MMU CELLS/CAPSULE PO SCH ×2 (07:58→21:06)
[2018-03-29] MEDS: levoTHYROXINE 100mcg tablet PO SCH (07:58)
[2018-03-29] MEDS: carVEDilol 3.125mg tablet PO SCH (07:58)
[2018-03-29] MEDS: CefTRIAXone 2gm/D5W 50ml 50 ML IV SCH (07:59)
[2018-03-29] MEDS: venlafaxine XR 75mg capsule (Q24H) PO SCH (08:01)
[2018-03-29 11:00] VITALS: BP 165/90
[2018-03-29] MEDS: potassium Cl 20 mEq SR tablet PO PRN ×2 (12:55→21:16)
[2018-03-29 19:13] VITALS: BP 121/83
[2018-03-29] MEDS: rifaximin 550mg tablet PO SCH (21:06)
[2018-03-29] MEDS: oxybutynin 5mg tablet PO SCH (21:06)
[2018-03-29] MEDS: mirtazapine 15mg tablet PO SCH (21:06)
[2018-03-30] VITALS (7 sets, daily range): BP systolic 113–155; BP diastolic 71–88
[2018-03-30] MEDS: lactulose 20gm/30ml cup PO SCH ×5 (00:11→18:03)
[2018-03-30] MEDS: HYDROcodone/acetaminophen 5mg/325mg tablet PO PRN (00:44)
[2018-03-30] MEDS: potassium Cl 20 mEq SR tablet PO PRN ×4 (03:48→20:27)
[2018-03-30 05:34] LABS: BASOPHILS % (AUTO) 0.6 % (0-1); EOSINOPHILS % (AUTO) 2.9 % (0-6); HEMATOCRIT 44.9 % (42.0-52.0); HEMOGLOBIN 15.9 g/dl (14.0-17.9); LYMPHOCYTES % (AUTO) 21.2 % (21-51); MEAN CORPUSCULAR HEMOGLOBIN 32.3 PG (27.0-31.0); MEAN CORPUSCULAR HGB CONC 35.4 % (33.0-36.5); MEAN CORPUSCULAR VOLUME 91.3 FL (78-98); MEAN PLATELET VOLUME 9.3 FL (7.4-10.4); MONOCYTES % (AUTO) 11 % (2-12); NEUTROPHILS % (AUTO) 64.3 % (42-75); PLATELET COUNT 117 X10'3 (140-440); RED BLOOD COUNT 4.92 X10'6 (4.70-6.10); RED CELL DISTRIBUTION WIDTH 14.2 % (11.5-14.5); WHITE BLOOD COUNT 9.7 X10'3 (4.5-11.0)
[2018-03-30 05:35] LABS: BASOPHILS # (AUTO) 0.1 X10'3 (0-0.2); EOSINOPHILS # (AUTO) 0.3 X10'3 (0-0.9); LYMPHOCYTES # (AUTO) 2.1 X10'3 (1.1-4.8); MONOCYTES # (AUTO) 1.1 X10'3 (0-0.9); NEUTROPHILS # (AUTO) 6.1 X10'3 (1.8-7.7)
[2018-03-30 05:43] LABS: ALANINE AMINOTRANSFERASE 47 U/L (12-78); ALBUMIN 3.1 G/DL (3.4-5.0); ALBUMIN/GLOBULIN RATIO 0.7 (1.1-1.5); ALKALINE PHOSPHATASE 45 IU/L (46-116); ANION GAP 10 (8-16); ASPARTATE AMINO TRANSFERASE 69 U/L (10-37); BILIRUBIN,TOTAL 1.7 MG/DL (0.1-1.0); BLOOD UREA NITROGEN 11 MG/DL (7-18); BUN/CREATININE RATIO 11.3 (5.4-32.0); CALCIUM 8.6 MG/DL (8.5-10.1); CHLORIDE 108 MMOL/L (99-107); CREATININE 0.97 MG/DL (0.60-1.10); GLUCOSE 94 MG/DL (70-104); MAGNESIUM 1.5 MG/DL (1.5-2.4); PHOSPHORUS 3.3 MG/DL (2.3-4.5); POTASSIUM 3.3 MMOL/L (3.5-5.1); SODIUM 145 MMOL/L (135-145); TOTAL CARBON DIOXIDE 27.4 MMOL/L (24-32); TOTAL PROTEIN 7.5 G/DL (6.4-8.2); eGFR 79 ML/MIN
[2018-03-30] MEDS: levoTHYROXINE 100mcg tablet PO SCH (08:00)
[2018-03-30] MEDS: CefTRIAXone 2gm/D5W 50ml 50 ML IV SCH (08:03)
[2018-03-30] MEDS: rifaximin 550mg tablet PO SCH ×2 (08:03→20:27)
[2018-03-30] MEDS: lactobacillus rhamnosus 10,000 MMU CELLS/CAPSULE PO SCH ×2 (08:03→20:27)
[2018-03-30] MEDS: carVEDilol 3.125mg tablet PO SCH (08:04)
[2018-03-30] MEDS: venlafaxine XR 75mg capsule (Q24H) PO SCH (08:04)
[2018-03-30] MEDS ORDERED: lactulose 20gm/30ml cup PO SCH (14:00)
[2018-03-30] MEDS: mirtazapine 15mg tablet PO SCH (20:27)
[2018-03-30] MEDS: oxybutynin 5mg tablet PO SCH (20:27)
[2018-03-31] VITALS: BP 148/87
[2018-03-31] MEDS: lactulose 20gm/30ml cup PO SCH ×3 (00:15→12:35)
[2018-03-31 05:33] LABS: BASOPHILS % (AUTO) 0.4 % (0-1); EOSINOPHILS # (AUTO) 0.4 X10'3 (0-0.9); EOSINOPHILS % (AUTO) 4.9 % (0-6); HEMATOCRIT 43.5 % (42.0-52.0); LYMPHOCYTES % (AUTO) 27.1 % (21-51); MEAN CORPUSCULAR HGB CONC 34.5 % (33.0-36.5); MEAN CORPUSCULAR VOLUME 92.8 FL (78-98); MEAN PLATELET VOLUME 9.1 FL (7.4-10.4); NEUTROPHILS % (AUTO) 54.6 % (42-75); PLATELET COUNT 115 X10'3 (140-440); RED BLOOD COUNT 4.68 X10'6 (4.70-6.10); RED CELL DISTRIBUTION WIDTH 15.4 % (11.5-14.5); WHITE BLOOD COUNT 7.4 X10'3 (4.5-11.0)
[2018-03-31 06:00] LABS: ALANINE AMINOTRANSFERASE 47 U/L (12-78); ALBUMIN/GLOBULIN RATIO 0.7 (1.1-1.5); ALKALINE PHOSPHATASE 41 IU/L (46-116); ANION GAP 7 (8-16); ASPARTATE AMINO TRANSFERASE 65 U/L (10-37); BILIRUBIN,TOTAL 1.5 MG/DL (0.1-1.0); BLOOD UREA NITROGEN 10 MG/DL (7-18); BUN/CREATININE RATIO 11.4 (5.4-32.0); CALCIUM 8.5 MG/DL (8.5-10.1); CHLORIDE 109 MMOL/L (99-107); CREATININE 0.88 MG/DL (0.60-1.10); GLUCOSE 85 MG/DL (70-104); MAGNESIUM 1.5 MG/DL (1.5-2.4); PHOSPHORUS 3.3 MG/DL (2.3-4.5); POTASSIUM 3.9 MMOL/L (3.5-5.1); SODIUM 144 MMOL/L (135-145); TOTAL PROTEIN 7.2 G/DL (6.4-8.2); eGFR 88 ML/MIN
[2018-03-31 07:00] VITALS: BP 166/96
[2018-03-31] MEDS: levoTHYROXINE 100mcg tablet PO SCH (08:06)
[2018-03-31] MEDS: carVEDilol 3.125mg tablet PO SCH (08:07)
[2018-03-31] MEDS: lactobacillus rhamnosus 10,000 MMU CELLS/CAPSULE PO SCH (08:08)
[2018-03-31] MEDS: venlafaxine XR 75mg capsule (Q24H) PO SCH (08:09)
[2018-03-31] MEDS: rifaximin 550mg tablet PO SCH (08:09)
[2018-03-31] MEDS: CefTRIAXone 2gm/D5W 50ml 50 ML IV SCH (08:12)
[2018-03-31 11:28] VITALS: BP_SYST 147; BP_SYST 150; BP_SYST 161; BP_DIAS 80; BP_DIAS 83; BP_DIAS 94
[2018-03-31 11:30] VITALS: BP 147/94
[2018-03-31] MEDS ORDERED: LACT10SO PO (12:49)
[2018-03-31] MEDS ORDERED: FOLI1TAB16 PO (12:49)
[2018-03-31] MEDS ORDERED: CEPH250T PO (12:49)
[2018-03-31] MEDS ORDERED: THI100T PO (12:49)
[2018-03-31] MEDS ORDERED: MULT1TAB74 PO (12:49)
[2018-03-31] MEDS ORDERED: LACT1CAP26 PO (12:49)
[2018-03-31] MEDS ORDERED: LEVO100T9 PO (12:49)
[2018-03-31] MEDS ORDERED: RIFA550T PO (15:47)
[2018-03-31] MEDS ORDERED: CARV3.12 PO (15:47)
== END 2018-03-31 15:39 | disposition home health service (06) | DRG 442 ==
LOC: ER 10:02 → ED HOLD 15:10 → OBSVTOIN 15:10 → SUR 3N 17:24
PROVIDERS: ADMIT Internal Medicine; ATTEND Family Medicine
DX: K72.90 Hepatic failure, unspecified without coma (principal); N39.0 Urinary tract infection, site not specified; K70.30 Alcoholic cirrhosis of liver without ascites; E03.9 Hypothyroidism, unspecified; M54.5 Low back pain; W19.XXXA Unspecified fall, initial encounter; Z60.2 Problems related to living alone; F10.10 Alcohol abuse, uncomplicated; F41.8 Other specified anxiety disorders; G89.29 Other chronic pain; J44.9 Chronic obstructive pulmonary disease, unspecified; Z79.890 Hormone replacement therapy; Z91.19 Patient's noncompliance with other medical treatment and regimen; Z79.899 Other long term (current) drug therapy; Z71.41 Alcohol abuse counseling and surveillance of alcoholic; Y93.89 Activity, other specified; Y92.89 Other specified places as the place of occurrence of the external cause; Y99.8 Other external cause status
CPT/HCPCS: 36415; 70450; 72070; 72100; 80053; 80305; 80320; 81001; 82140; 83735; 84100; 84439; 84443; 84484; 85025; 85610; 87070; 87088; 97110; 97116; 97161; 97530; G0378; J0696

== ENCOUNTER 2018-05-25 12:32 | Inpatient (IN) | payer MEDICARE, MEDICAID | END 2018-06-02 13:20 | disposition home or self-care (01) | LOC: ER 12:32 → PCU 3S 05-26 07:00 → ED HOLD 18:33 | DX: K74.60 Unspecified cirrhosis of liver (principal); K72.00 Acute and subacute hepatic failure without coma; E03.9 Hypothyroidism, unspecified ==

== ENCOUNTER 2018-11-08 11:48 | Inpatient (IN) | payer MEDICARE, MEDICAID ==
[~2018-11-08] VITALS: Ht 175.3 cm; Wt 72.7 kg
[~2018-11-08 11:48] MED LIST changes: -ALBU18HF2; +ALBU18HF2 INH; -LACT10SO PO; -LACT10SO32 PO; +LACT10SO67 PO; +LISI2.5T2 PO; -OXYB5TAB11 PO; +OXYB5TAB16 PO; -RIFA200T2 PO; -VENL150T3 PO; +VENL75CA61 PO
[2018-11-08 13:07] LABS: BASOPHILS # (AUTO) 0.1 X10'3 (0-0.2); BASOPHILS % (AUTO) 0.8 % (0-1); EOSINOPHILS # (AUTO) 0.2 X10'3 (0-0.9); EOSINOPHILS % (AUTO) 2.3 % (0-6); HEMATOCRIT 36.2 % (42.0-52.0); LYMPHOCYTES # (AUTO) 1.8 X10'3 (1.1-4.8); LYMPHOCYTES % (AUTO) 22.8 % (21-51); MEAN CORPUSCULAR HEMOGLOBIN 34.6 PG (27.0-31.0); MEAN CORPUSCULAR VOLUME 95.9 FL (78-98); MEAN PLATELET VOLUME 8.2 FL (7.4-10.4); MONOCYTES # (AUTO) 1.3 X10'3 (0-0.9); MONOCYTES % (AUTO) 16.7 % (2-12); NEUTROPHILS # (AUTO) 4.6 X10'3 (1.8-7.7); NEUTROPHILS % (AUTO) 57.4 % (42-75); PLATELET COUNT 94 X10'3 (140-440); RED BLOOD COUNT 3.77 X10'6 (4.70-6.10); RED CELL DISTRIBUTION WIDTH 18.1 % (11.5-14.5)
[2018-11-08 13:28] LABS: ALANINE AMINOTRANSFERASE 38 U/L (12-78); ALBUMIN 3.3 G/DL (3.4-5.0); ALBUMIN/GLOBULIN RATIO 0.7 (1.1-1.5); ALKALINE PHOSPHATASE 45 IU/L (46-116); ANION GAP 7 (8-16); ASPARTATE AMINO TRANSFERASE 45 U/L (10-37); BILIRUBIN,TOTAL 2.1 MG/DL (0.1-1.0); BLOOD UREA NITROGEN 17 MG/DL (7-18); BUN/CREATININE RATIO 17.9 (5.4-32.0); CALCIUM 8.5 MG/DL (8.5-10.1); CHLORIDE 106 MMOL/L (99-107); CREATININE 0.95 MG/DL (0.60-1.10); GLUCOSE 90 MG/DL (70-104); POTASSIUM 3.4 MMOL/L (3.5-5.1); SODIUM 140 MMOL/L (135-145); TOTAL CARBON DIOXIDE 27.4 MMOL/L (24-32); TOTAL PROTEIN 7.8 G/DL (6.4-8.2); eGFR 81 ML/MIN
[2018-11-08 14:25] LABS: PLATELET ESTIMATE DECREASED; POLYCHROMASIA FEW; SPHEROCYTES 1+
[2018-11-08 14:28] LABS: ROULEAUX 1+
[2018-11-08] MEDS ORDERED: normal saline 1000ml 1,000 ML IV SCH (15:59)
[2018-11-08] MEDS ORDERED: magnesium Cl slow-release 64mg tablet PO PRN (16:00)
[2018-11-08] MEDS ORDERED: magnesium 4gm in 100ml NS 100 ML IV PRN (16:00)
[2018-11-08] MEDS ORDERED: potassium Cl 20 mEq SR tablet PO PRN (16:00)
[2018-11-08] MEDS ORDERED: potassium CL 10mEq/100ml bag 100 ML IV PRN ×2 (16:00)
[2018-11-08] MEDS ORDERED: magnesium 2GM in 50ml NS 50 ML IV PRN (16:00)
[2018-11-08] MEDS ORDERED: CARV3.1244 PO (16:09)
[2018-11-08] MEDS ORDERED: LACT10SO57 PO (16:11)
[2018-11-08] MEDS ORDERED: VENL150C58 PO (16:17)
--- NOTE | 2018-11-08 17:00 | NUR ---
Patient in room [facility]. I have received report from Bakari [facility] and had the opportunity to ask questions and assume patient care.
[2018-11-08] MEDS ORDERED: albuterol 2.5 MG/3 ML nebule NEB PRN (17:15)
--- NOTE | 2018-11-08 17:30 | NUR ---
Patient just arrived to floor, Patient has urine up to his should and had to do a full bedchange bed bath upon getting to the floor. Patient was settled into room and tele number [id number] was assigned to patient
[2018-11-08 18:20] VITALS: BP 105/57
--- NOTE | 2018-11-08 18:30 | NUR ---
Problems reprioritized. Patient report given, questions answered & plan of care reviewed with Donna WALLACE.
--- NOTE | 2018-11-08 18:36 | NUR ---
Patient in room [facility] 357. I have received report from Bakari WALLACE and had the opportunity to ask questions and assume patient care.
[2018-11-08 20:22] VITALS: BP 136/67
[2018-11-08] MEDS: mirtazapine 15mg tablet PO SCH (20:35)
[2018-11-08] MEDS: carVEDilol 3.125mg tablet PO SCH (20:35)
[2018-11-08] MEDS ORDERED: LACTULOSE 20 GM PO SCH (21:00)
[2018-11-08] MEDS ORDERED: lactulose 20gm/30ml cup PO ONE (21:00)
[2018-11-08] MEDS: Potassium Cl inj 20 MEQ in normal saline 1000ml 990 ML IV SCH (22:36)
[2018-11-09] VITALS: BP 140/73
[2018-11-09 05:34] LABS: BASOPHILS % (AUTO) 1.1 % (0-1); EOSINOPHILS # (AUTO) 0.2 X10'3 (0-0.9); EOSINOPHILS % (AUTO) 3.8 % (0-6); HEMATOCRIT 33.5 % (42.0-52.0); HEMOGLOBIN 12.1 g/dl (14.0-17.9); LYMPHOCYTES # (AUTO) 1.8 X10'3 (1.1-4.8); LYMPHOCYTES % (AUTO) 39.6 % (21-51); MEAN CORPUSCULAR HEMOGLOBIN 34.9 PG (27.0-31.0); MEAN CORPUSCULAR HGB CONC 36.1 g/dL (33.0-36.5); MEAN CORPUSCULAR VOLUME 96.5 FL (78-98); MEAN PLATELET VOLUME 8.5 FL (7.4-10.4); MONOCYTES # (AUTO) 0.9 X10'3 (0-0.9); MONOCYTES % (AUTO) 20.5 % (2-12); NEUTROPHILS # (AUTO) 1.6 X10'3 (1.8-7.7); PLATELET COUNT 80 X10'3 (140-440); RED BLOOD COUNT 3.47 X10'6 (4.70-6.10); WHITE BLOOD COUNT 4.5 X10'3 (4.5-11.0)
[2018-11-09 05:42] LABS: ALBUMIN 2.8 G/DL (3.4-5.0); ANION GAP 7 (8-16); BLOOD UREA NITROGEN 13 MG/DL (7-18); BUN/CREATININE RATIO 16.3 (5.4-32.0); CALCIUM 8.4 MG/DL (8.5-10.1); CHLORIDE 110 MMOL/L (99-107); GLUCOSE 78 MG/DL (70-104); MAGNESIUM 1.7 MG/DL (1.5-2.4); POTASSIUM 3.1 MMOL/L (3.5-5.1); SODIUM 144 MMOL/L (135-145); TOTAL CARBON DIOXIDE 26.6 MMOL/L (24-32); eGFR > 90 ML/MIN
--- NOTE | 2018-11-09 06:50 | NUR ---
Patient in room [facility]. I have received report from Donna WALLACE and had the opportunity to ask questions and assume patient care.
--- NOTE | 2018-11-09 06:54 | NUR ---
Problems reprioritized. Patient report given, questions answered & plan of care reviewed with Lilian WALLACE.
[2018-11-09 06:58] LABS: ANISOCYTOSIS 1+; PLATELET ESTIMATE DECREASED; POLYCHROMASIA FEW; SPHEROCYTES 2+
[2018-11-09 06:59] LABS: ROULEAUX 1+
[2018-11-09 07:00] VITALS: BP 129/69
[2018-11-09] MEDS: K and/or MAG REPLACEMENT MC SCH (08:00)
[2018-11-09] MEDS: carVEDilol 3.125mg tablet PO SCH ×2 (08:21→20:05)
[2018-11-09] MEDS: venlafaxine XR 75mg capsule (Q24H) PO SCH (08:21)
[2018-11-09] MEDS: levoTHYROXINE 100mcg tablet PO SCH (08:22)
[2018-11-09] MEDS: oxybutynin 5mg tablet PO SCH (08:22)
[2018-11-09] MEDS: Potassium Cl inj 20 MEQ in normal saline 1000ml 990 ML IV SCH ×2 (08:30→20:04)
[2018-11-09] MEDS: potassium Cl 20 mEq SR tablet PO PRN ×2 (10:49→15:58)
[2018-11-09 11:00] VITALS: BP 122/67
[2018-11-09] MEDS: lactulose 20gm/30ml cup PO SCH ×2 (16:49→23:26)
--- NOTE | 2018-11-09 18:41 | NUR ---
Problems reprioritized. Patient report given, questions answered & plan of care reviewed with Donna WALLACE.
--- NOTE | 2018-11-09 18:51 | NUR ---
Patient in room [facility] 357. I have received report from Lilian WALLACE and had the opportunity to ask questions and assume patient care.
[2018-11-09 20:00] VITALS: BP 131/72
[2018-11-09] MEDS: rifaximin 550mg tablet PO SCH (20:04)
[2018-11-09] MEDS: mirtazapine 15mg tablet PO SCH (20:05)
[2018-11-09] MEDS: famotidine 20mg tablet PO SCH (20:06)
[2018-11-10] VITALS: BP 129/78
[2018-11-10] MEDS: Potassium Cl inj 20 MEQ in normal saline 1000ml 990 ML IV SCH ×2 (03:33→10:47)
[2018-11-10 05:35] LABS: EOSINOPHILS # (AUTO) 0.2 X10'3 (0-0.9); EOSINOPHILS % (AUTO) 3.3 % (0-6); HEMATOCRIT 34.1 % (42.0-52.0); HEMOGLOBIN 12.2 g/dl (14.0-17.9); LYMPHOCYTES # (AUTO) 1.7 X10'3 (1.1-4.8); LYMPHOCYTES % (AUTO) 36.9 % (21-51); MEAN CORPUSCULAR HEMOGLOBIN 34.6 PG (27.0-31.0); MEAN CORPUSCULAR HGB CONC 35.8 g/dL (33.0-36.5); MEAN CORPUSCULAR VOLUME 96.6 FL (78-98); MEAN PLATELET VOLUME 8.5 FL (7.4-10.4); MONOCYTES # (AUTO) 0.8 X10'3 (0-0.9); MONOCYTES % (AUTO) 18.3 % (2-12); NEUTROPHILS # (AUTO) 1.9 X10'3 (1.8-7.7); NEUTROPHILS % (AUTO) 40.5 % (42-75); PLATELET COUNT 76 X10'3 (140-440); RED BLOOD COUNT 3.53 X10'6 (4.70-6.10); RED CELL DISTRIBUTION WIDTH 18.3 % (11.5-14.5); WHITE BLOOD COUNT 4.6 X10'3 (4.5-11.0)
[2018-11-10 05:43] LABS: ALBUMIN 2.8 G/DL (3.4-5.0); ANION GAP 6 (8-16); BLOOD UREA NITROGEN 13 MG/DL (7-18); BUN/CREATININE RATIO 15.3 (5.4-32.0); CALCIUM 8.1 MG/DL (8.5-10.1); CHLORIDE 112 MMOL/L (99-107); CREATININE 0.85 MG/DL (0.60-1.10); GLUCOSE 81 MG/DL (70-104); MAGNESIUM 1.7 MG/DL (1.5-2.4); SODIUM 143 MMOL/L (135-145); TOTAL CARBON DIOXIDE 24.7 MMOL/L (24-32); eGFR > 90 ML/MIN
--- NOTE | 2018-11-10 06:32 | NUR ---
Problems reprioritized. Patient report given, questions answered & plan of care reviewed with Albina WALLACE.
[2018-11-10 07:26] LABS: ANISOCYTOSIS 2+; PLATELET ESTIMATE DECREASED; TOTAL CELLS COUNTED 100
[2018-11-10 07:27] LABS: ROULEAUX 1+; SPHEROCYTES 2+
[2018-11-10 07:48] VITALS: BP 133/78
[2018-11-10] MEDS: K and/or MAG REPLACEMENT MC SCH (08:00)
[2018-11-10] MEDS: levoTHYROXINE 100mcg tablet PO SCH (10:41)
[2018-11-10] MEDS: venlafaxine XR 75mg capsule (Q24H) PO SCH (10:41)
[2018-11-10] MEDS: carVEDilol 3.125mg tablet PO SCH ×2 (10:41→19:51)
[2018-11-10] MEDS: oxybutynin 5mg tablet PO SCH (10:41)
[2018-11-10] MEDS: rifaximin 550mg tablet PO SCH ×2 (10:42→19:51)
[2018-11-10] MEDS: lactulose 20gm/30ml cup PO SCH ×3 (10:42→21:48)
[2018-11-10 18:00] VITALS: BP 146/74
--- NOTE | 2018-11-10 18:27 | NUR ---
Patient in room [facility] 357A. I have received report from MADISON Montemayor and had the opportunity to ask questions and assume patient care.
[2018-11-10 19:05] VITALS: BP 134/74
--- NOTE | 2018-11-10 19:15 | NUR ---
Report given to Og WALLACE.
[2018-11-10] MEDS: mirtazapine 15mg tablet PO SCH (21:47)
[2018-11-10] MEDS: famotidine 20mg tablet PO SCH (21:47)
[2018-11-11] VITALS: BP 113/54
--- NOTE | 2018-11-11 06:26 | NUR ---
Patient in room [facility] 357. I have received report from MADISON SANCHEZ and had the opportunity to ask questions and assume patient care.
--- NOTE | 2018-11-11 06:32 | NUR ---
Problems reprioritized. Patient report given, questions answered & plan of care reviewed with MADISON Sheldon.
[2018-11-11 06:54] LABS: ALBUMIN 2.8 G/DL (3.4-5.0); ANION GAP 8 (8-16); BLOOD UREA NITROGEN 11 MG/DL (7-18); BUN/CREATININE RATIO 13.3 (5.4-32.0); CALCIUM 8.1 MG/DL (8.5-10.1); CHLORIDE 113 MMOL/L (99-107); CREATININE 0.83 MG/DL (0.60-1.10); GLUCOSE 78 MG/DL (70-104); MAGNESIUM 1.7 MG/DL (1.5-2.4); POTASSIUM 3.7 MMOL/L (3.5-5.1); SODIUM 146 MMOL/L (135-145); TOTAL CARBON DIOXIDE 24.9 MMOL/L (24-32); eGFR > 90 ML/MIN
[2018-11-11 07:00] VITALS: BP 175/90
[2018-11-11 07:29] LABS: EOSINOPHILS # (AUTO) 0.2 X10'3 (0-0.9); EOSINOPHILS % (AUTO) 3.4 % (0-6); HEMATOCRIT 33.4 % (42.0-52.0); HEMOGLOBIN 11.9 g/dl (14.0-17.9); LYMPHOCYTES # (AUTO) 1.8 X10'3 (1.1-4.8); LYMPHOCYTES % (AUTO) 34.4 % (21-51); MEAN CORPUSCULAR HEMOGLOBIN 34.5 PG (27.0-31.0); MEAN CORPUSCULAR HGB CONC 35.7 g/dL (33.0-36.5); MEAN CORPUSCULAR VOLUME 96.7 FL (78-98); MEAN PLATELET VOLUME 8.8 FL (7.4-10.4); MONOCYTES % (AUTO) 18.9 % (2-12); NEUTROPHILS # (AUTO) 2.2 X10'3 (1.8-7.7); NEUTROPHILS % (AUTO) 42.3 % (42-75); PLATELET COUNT 79 X10'3 (140-440); RED BLOOD COUNT 3.46 X10'6 (4.70-6.10); RED CELL DISTRIBUTION WIDTH 18.1 % (11.5-14.5); WHITE BLOOD COUNT 5.1 X10'3 (4.5-11.0)
[2018-11-11] MEDS: K and/or MAG REPLACEMENT MC SCH (08:00)
[2018-11-11] MEDS: oxybutynin 5mg tablet PO SCH (08:01)
[2018-11-11] MEDS: rifaximin 550mg tablet PO SCH ×2 (08:01→20:18)
[2018-11-11] MEDS: venlafaxine XR 75mg capsule (Q24H) PO SCH (08:02)
[2018-11-11] MEDS: levoTHYROXINE 100mcg tablet PO SCH (08:02)
[2018-11-11] MEDS: carVEDilol 3.125mg tablet PO SCH ×2 (08:02→20:18)
[2018-11-11] MEDS: lactulose 20gm/30ml cup PO SCH ×3 (08:02→20:19)
[2018-11-11 08:15] LABS: ANISOCYTOSIS 2+; PLATELET ESTIMATE DECREASED; POIKILOCYTOSIS 1+; POLYCHROMASIA 1+; SPHEROCYTES 2+
[2018-11-11 08:47] VITALS: BP 163/83
[2018-11-11 18:00] VITALS: BP 118/72
--- NOTE | 2018-11-11 18:07 | NUR ---
Patient in room [facility] 357A. I have received report from MADISON Sheldon and had the opportunity to ask questions and assume patient care.
--- NOTE | 2018-11-11 18:17 | NUR ---
Problems reprioritized. Patient report given, questions answered & plan of care reviewed with MADISON SANCHEZ.
[2018-11-11] MEDS: famotidine 20mg tablet PO SCH (20:18)
[2018-11-11] MEDS: mirtazapine 15mg tablet PO SCH (20:18)
[2018-11-12] VITALS: BP 161/84
[2018-11-12 06:33] LABS: ANION GAP 7 (8-16); BLOOD UREA NITROGEN 9 MG/DL (7-18); BUN/CREATININE RATIO 11.5 (5.4-32.0); CALCIUM 8.4 MG/DL (8.5-10.1); CHLORIDE 109 MMOL/L (99-107); CREATININE 0.78 MG/DL (0.60-1.10); GLUCOSE 78 MG/DL (70-104); MAGNESIUM 1.7 MG/DL (1.5-2.4); POTASSIUM 4.2 MMOL/L (3.5-5.1); SODIUM 144 MMOL/L (135-145); TOTAL CARBON DIOXIDE 27.8 MMOL/L (24-32); eGFR > 90 ML/MIN
--- NOTE | 2018-11-12 06:39 | NUR ---
Problems reprioritized. Patient report given, questions answered & plan of care reviewed with MADISON Villegas.
--- NOTE | 2018-11-12 06:54 | NUR ---
Patient in room [facility] 357. I have received report from Og WALLACE and had the opportunity to ask questions and assume patient care.
[2018-11-12 07:12] LABS: BASOPHILS # (AUTO) 0.1 X10'3 (0-0.2); BASOPHILS % (AUTO) 1.1 % (0-1); EOSINOPHILS # (AUTO) 0.2 X10'3 (0-0.9); EOSINOPHILS % (AUTO) 3.6 % (0-6); HEMATOCRIT 35.6 % (42.0-52.0); HEMOGLOBIN 12.9 g/dl (14.0-17.9); LYMPHOCYTES # (AUTO) 1.9 X10'3 (1.1-4.8); LYMPHOCYTES % (AUTO) 29.9 % (21-51); MEAN CORPUSCULAR HEMOGLOBIN 34.8 PG (27.0-31.0); MEAN CORPUSCULAR HGB CONC 36.2 g/dL (33.0-36.5); MEAN PLATELET VOLUME 8.7 FL (7.4-10.4); MONOCYTES # (AUTO) 1.1 X10'3 (0-0.9); MONOCYTES % (AUTO) 17.9 % (2-12); NEUTROPHILS % (AUTO) 47.5 % (42-75); PLATELET COUNT 89 X10'3 (140-440); RED BLOOD COUNT 3.71 X10'6 (4.70-6.10); WHITE BLOOD COUNT 6.3 X10'3 (4.5-11.0)
[2018-11-12 07:26] VITALS: BP 146/78
[2018-11-12] MEDS: K and/or MAG REPLACEMENT MC SCH (08:00)
[2018-11-12 08:16] LABS: PLATELET ESTIMATE DECREASED; POLYCHROMASIA 1+
[2018-11-12 08:17] LABS: ANISOCYTOSIS 1+
[2018-11-12 08:18] LABS: SPHEROCYTES 2+
[2018-11-12] MEDS: venlafaxine XR 75mg capsule (Q24H) PO SCH (08:24)
[2018-11-12] MEDS: rifaximin 550mg tablet PO SCH ×2 (08:24→20:00)
[2018-11-12] MEDS: carVEDilol 3.125mg tablet PO SCH ×2 (08:24→21:20)
[2018-11-12] MEDS: levoTHYROXINE 100mcg tablet PO SCH (08:25)
[2018-11-12] MEDS: lactulose 20gm/30ml cup PO SCH ×3 (08:26→21:19)
[2018-11-12] MEDS: oxybutynin 5mg tablet PO SCH (08:26)
[2018-11-12 11:00] VITALS: BP 134/68
--- NOTE | 2018-11-12 18:20 | NUR ---
Patient in room [facility] 357. I have received report from MADISON Villegas and had the opportunity to ask questions and assume patient care.
--- NOTE | 2018-11-12 18:30 | NUR ---
Problems reprioritized. Patient report given, questions answered & plan of care reviewed with Og WALLACE.
[2018-11-12 20:00] VITALS: BP 112/65
[2018-11-12] MEDS: mirtazapine 15mg tablet PO SCH (21:19)
[2018-11-12] MEDS: famotidine 20mg tablet PO SCH (21:19)
[2018-11-13] VITALS: BP 163/87
[2018-11-13 06:41] LABS: ALBUMIN 2.9 G/DL (3.4-5.0); ANION GAP 7 (8-16); BLOOD UREA NITROGEN 8 MG/DL (7-18); CALCIUM 8.3 MG/DL (8.5-10.1); CHLORIDE 110 MMOL/L (99-107); CREATININE 0.73 MG/DL (0.60-1.10); GLUCOSE 83 MG/DL (70-104); MAGNESIUM 1.7 MG/DL (1.5-2.4); POTASSIUM 3.9 MMOL/L (3.5-5.1); SODIUM 145 MMOL/L (135-145); TOTAL CARBON DIOXIDE 28.5 MMOL/L (24-32); eGFR > 90 ML/MIN
--- NOTE | 2018-11-13 06:44 | NUR ---
Problems reprioritized. Patient report given, questions answered & plan of care reviewed with MADISON Villegas.
[2018-11-13 07:44] VITALS: BP 126/81
[2018-11-13 07:44] LABS: BASOPHILS # (AUTO) 0.1 X10'3 (0-0.2); BASOPHILS % (AUTO) 1.1 % (0-1); EOSINOPHILS # (AUTO) 0.2 X10'3 (0-0.9); EOSINOPHILS % (AUTO) 3.5 % (0-6); HEMATOCRIT 34.6 % (42.0-52.0); HEMOGLOBIN 12.6 g/dl (14.0-17.9); LYMPHOCYTES # (AUTO) 1.7 X10'3 (1.1-4.8); LYMPHOCYTES % (AUTO) 27.7 % (21-51); MEAN CORPUSCULAR HEMOGLOBIN 34.9 PG (27.0-31.0); MEAN CORPUSCULAR HGB CONC 36.4 g/dL (33.0-36.5); MEAN CORPUSCULAR VOLUME 95.8 FL (78-98); MEAN PLATELET VOLUME 8.6 FL (7.4-10.4); MONOCYTES # (AUTO) 1.2 X10'3 (0-0.9); NEUTROPHILS % (AUTO) 48.7 % (42-75); PLATELET COUNT 89 X10'3 (140-440); RED BLOOD COUNT 3.61 X10'6 (4.70-6.10); RED CELL DISTRIBUTION WIDTH 18.8 % (11.5-14.5); WHITE BLOOD COUNT 6.1 X10'3 (4.5-11.0)
[2018-11-13] MEDS: lactulose 20gm/30ml cup PO SCH ×4 (07:55→20:09)
[2018-11-13] MEDS: carVEDilol 3.125mg tablet PO SCH ×2 (07:56→20:09)
[2018-11-13] MEDS: oxybutynin 5mg tablet PO SCH (07:56)
[2018-11-13] MEDS: rifaximin 550mg tablet PO SCH ×2 (07:57→20:09)
[2018-11-13] MEDS: venlafaxine XR 75mg capsule (Q24H) PO SCH (07:57)
[2018-11-13] MEDS: levoTHYROXINE 125mcg tablet PO SCH (07:58)
[2018-11-13] MEDS: K and/or MAG REPLACEMENT MC SCH (08:00)
[2018-11-13 08:16] LABS: PLATELET ESTIMATE DECREASED
[2018-11-13 08:17] LABS: ACANTHOCYTES FEW; ANISOCYTOSIS 2+; POLYCHROMASIA FEW; SCHISTOCYTES FEW; SPHEROCYTES 2+
[2018-11-13 11:00] VITALS: BP 148/75
--- NOTE | 2018-11-13 12:50 | NUR ---
Nutrition consult: RE "low albumin": Pt admit w/ hepatic encephalopathy PO 100% regular diet meeting needs. LB 11/12. No nutrition concerns at this time Addendum: 11/13/18 at [address] Amended: Links added.
--- NOTE | 2018-11-13 18:30 | NUR ---
Problems reprioritized. Patient report given, questions answered & plan of care reviewed with Chantel WALLACE.
[2018-11-13 20:00] VITALS: BP 138/64
[2018-11-13] MEDS: famotidine 20mg tablet PO SCH (20:09)
[2018-11-13] MEDS: mirtazapine 15mg tablet PO SCH (20:09)
--- NOTE | 2018-11-13 23:26 | NUR ---
Patient in room [facility] 357. I have received report from MADISON Villegas and had the opportunity to ask questions and assume patient care. Addendum: 11/13/18 at 2327 by Chantel Wooten RN Amended: Links added.
[2018-11-14] VITALS: BP 149/83
[2018-11-14 06:00] VITALS: BP 127/56
--- NOTE | 2018-11-14 06:26 | NUR ---
Problems reprioritized. Patient report given, questions answered & plan of care reviewed with MADISON Mccormack. Addendum: 11/14/18 at 0626 by Chantel Wooten RN Amended: Links added.
--- NOTE | 2018-11-14 06:59 | NUR ---
Patient in room [facility] 357. I have received report from moris WALLACE and had the opportunity to ask questions and assume patient care.
[2018-11-14] MEDS: K and/or MAG REPLACEMENT MC SCH (08:00)
[2018-11-14 08:43] VITALS: BP 127/56
[2018-11-14] MEDS: rifaximin 550mg tablet PO SCH ×2 (08:45→20:00)
[2018-11-14] MEDS: carVEDilol 3.125mg tablet PO SCH ×2 (08:45→20:00)
[2018-11-14] MEDS: venlafaxine XR 75mg capsule (Q24H) PO SCH (08:45)
[2018-11-14] MEDS: levoTHYROXINE 125mcg tablet PO SCH (08:46)
[2018-11-14] MEDS: oxybutynin 5mg tablet PO SCH (08:46)
[2018-11-14] MEDS: lactulose 20gm/30ml cup PO SCH ×4 (08:47→20:01)
[2018-11-14 11:00] VITALS: BP 127/79
[2018-11-14 18:00] VITALS: BP 162/78
--- NOTE | 2018-11-14 18:07 | NUR ---
pleasant shift, patient able to ambulate x2. seen by Dr Clark, case repairer still looking for placement. Appears stable, and orientated. patient was aimable making jokes and interacting with staff.
--- NOTE | 2018-11-14 18:49 | NUR ---
Problems reprioritized. Patient report given, questions answered & plan of care reviewed with moris WALLACE.
[2018-11-14] MEDS: mirtazapine 15mg tablet PO SCH (20:00)
[2018-11-14] MEDS: lactobacillus rhamnosus 10,000 MMU CELLS/CAPSULE PO SCH (20:01)
[2018-11-14] MEDS: famotidine 20mg tablet PO SCH (20:01)
[2018-11-15] VITALS: BP 126/72
--- NOTE | 2018-11-15 06:39 | NUR ---
Problems reprioritized. Patient report given, questions answered & plan of care reviewed with MADISON Ji. Addendum: 11/15/18 at 0639 by Chantel Wooten RN Amended: Links added.
--- NOTE | 2018-11-15 06:40 | NUR ---
Problems reprioritized. Patient report given, questions answered & plan of care reviewed with MADISON Ji. Addendum: 11/15/18 at 0640 by Chantel Wooten RN Amended: Links added.
[2018-11-15 07:24] VITALS: BP 154/70
[2018-11-15] MEDS: K and/or MAG REPLACEMENT MC SCH (08:00)
[2018-11-15] MEDS: lactobacillus rhamnosus 10,000 MMU CELLS/CAPSULE PO SCH ×2 (08:27→20:14)
[2018-11-15] MEDS: lactulose 20gm/30ml cup PO SCH ×4 (08:27→20:14)
[2018-11-15] MEDS: rifaximin 550mg tablet PO SCH ×2 (08:27→20:14)
[2018-11-15] MEDS: venlafaxine XR 75mg capsule (Q24H) PO SCH (08:28)
[2018-11-15] MEDS: carVEDilol 3.125mg tablet PO SCH ×2 (08:28→20:14)
[2018-11-15] MEDS: oxybutynin 5mg tablet PO SCH (08:28)
[2018-11-15] MEDS: levoTHYROXINE 125mcg tablet PO SCH (08:29)
[2018-11-15 11:41] VITALS: BP 162/82
--- NOTE | 2018-11-15 18:51 | NUR ---
Report given to [facility] nurse.
[2018-11-15 20:00] VITALS: BP 151/69
[2018-11-15] MEDS: famotidine 20mg tablet PO SCH (20:14)
[2018-11-15] MEDS: mirtazapine 15mg tablet PO SCH (20:14)
--- NOTE | 2018-11-15 20:53 | NUR ---
Patient in room [facility] 357. I have received report from MADISON Ji and had the opportunity to ask questions and assume patient care. Addendum: 11/15/18 at 2053 by Chantel Wooten RN Amended: Links added.
--- NOTE | 2018-11-15 23:20 | NUR ---
Patient in room [facility] 356. I have received report from MADISON Ji and had the opportunity to ask questions and assume patient care. Addendum: 11/15/18 at 2321 by Chantel Wooten RN Amended: Links added.
[2018-11-16] VITALS: BP 103/52
--- NOTE | 2018-11-16 06:23 | NUR ---
Problems reprioritized. Patient report given, questions answered & plan of care reviewed with MADISON Ji. Addendum: 11/16/18 at 0623 by Chantel Wooten RN Amended: Links added.
[2018-11-16 07:46] VITALS: BP 138/73
[2018-11-16] MEDS: levoTHYROXINE 125mcg tablet PO SCH (07:50)
[2018-11-16] MEDS: venlafaxine XR 75mg capsule (Q24H) PO SCH (07:51)
[2018-11-16] MEDS: oxybutynin 5mg tablet PO SCH (07:51)
[2018-11-16] MEDS: rifaximin 550mg tablet PO SCH ×2 (07:51→20:09)
[2018-11-16] MEDS: lactobacillus rhamnosus 10,000 MMU CELLS/CAPSULE PO SCH ×2 (07:51→20:09)
[2018-11-16] MEDS: lactulose 20gm/30ml cup PO SCH ×4 (07:51→21:05)
[2018-11-16] MEDS: carVEDilol 3.125mg tablet PO SCH ×2 (07:51→20:09)
[2018-11-16] MEDS: K and/or MAG REPLACEMENT MC SCH (07:54)
[2018-11-16 11:00] VITALS: BP 128/76
--- NOTE | 2018-11-16 18:04 | NUR ---
Problems reprioritized. Patient report given, questions answered & plan of care reviewed with Sarai WALLACE.
--- NOTE | 2018-11-16 18:18 | NUR ---
Patient in room [facility] 356. I have received report from MADISON Ji and had the opportunity to ask questions and assume patient care. Addendum: 11/16/18 at 1818 by Thea Vela RN Amended: Links added.
[2018-11-16 19:00] VITALS: BP 131/83
[2018-11-16] MEDS: mirtazapine 15mg tablet PO SCH (21:05)
[2018-11-16] MEDS: famotidine 20mg tablet PO SCH (21:05)
[2018-11-17] VITALS: BP 104/53
--- NOTE | 2018-11-17 06:33 | NUR ---
Problems reprioritized. Patient report given, questions answered & plan of care reviewed with MADISON Matthews.
[2018-11-17 07:00] VITALS: BP 131/85
[2018-11-17] MEDS: K and/or MAG REPLACEMENT MC SCH (07:51)
[2018-11-17] MEDS: venlafaxine XR 75mg capsule (Q24H) PO SCH (07:56)
[2018-11-17] MEDS: lactulose 20gm/30ml cup PO SCH ×3 (07:56→17:09)
[2018-11-17] MEDS: rifaximin 550mg tablet PO SCH (07:56)
[2018-11-17] MEDS: oxybutynin 5mg tablet PO SCH (07:56)
[2018-11-17] MEDS: levoTHYROXINE 125mcg tablet PO SCH (07:56)
[2018-11-17] MEDS: carVEDilol 3.125mg tablet PO SCH (07:56)
[2018-11-17] MEDS: lactobacillus rhamnosus 10,000 MMU CELLS/CAPSULE PO SCH (07:56)
[2018-11-17 12:17] VITALS: BP 122/67
[2018-11-17] MEDS ORDERED: VENL150C58 PO (12:26)
[2018-11-17] MEDS ORDERED: RIFA550T PO (12:26)
[2018-11-17] MEDS ORDERED: LACT10SO32 PO (12:26)
[2018-11-17] MEDS ORDERED: MIRT15TA8 PO (12:26)
[2018-11-17] MEDS ORDERED: OXYB5TAB16 PO (12:26)
[2018-11-17] MEDS ORDERED: LEVO125T8 PO (12:26)
[2018-11-17] MEDS ORDERED: ALBU18HF2 INH (12:26)
[2018-11-17] MEDS ORDERED: CARV3.1244 PO (12:26)
--- NOTE | 2018-11-17 18:19 | NUR ---
Problems reprioritized. Patient report given, questions answered & plan of care reviewed with SIXTO WALLACE.
--- NOTE | 2018-11-17 18:29 | NUR ---
Patient in room [facility] 356. I have received report from MADISON Matthews and had the opportunity to ask questions and assume patient care. Patient is all set for discharge and is just waiting for his ride to go to [facility] per plan. patient is stable condition and ambulating around the hallway while waiting. No IV and no other issues noted.
--- NOTE | 2018-11-17 19:00 | NUR ---
patient left with staff assisted to the lobby
== END 2018-11-17 18:30 | disposition home health service (06) | DRG 433 ==
LOC: ER 11:48 → SUR 3N 17:17 → CMPBEDREQ 19:47 → SUR 3N 11-15 21:18
PROVIDERS: ADMIT Internal Medicine; ATTEND Family Medicine
DX: K70.40 Alcoholic hepatic failure without coma (principal); E87.0 Hyperosmolality and hypernatremia; E03.9 Hypothyroidism, unspecified; F32.9 Major depressive disorder, single episode, unspecified; E87.6 Hypokalemia; Z60.2 Problems related to living alone; I10 Essential (primary) hypertension; D63.8 Anemia in other chronic diseases classified elsewhere; K70.31 Alcoholic cirrhosis of liver with ascites; F41.9 Anxiety disorder, unspecified; G89.29 Other chronic pain; K76.9 Liver disease, unspecified; M54.9 Dorsalgia, unspecified; Z79.899 Other long term (current) drug therapy
CPT/HCPCS: 36415; 80048; 80053; 82140; 82948; 83735; 84443; 84484; 85025; 87081; 93005; 94760; 97116; 97161; 97530; 99285; G0378; J3480; J7030

== ENCOUNTER 2019-03-27 11:50 | Emergency (ER) | payer MEDICARE, MEDICAID ==
[~2019-03-27] VITALS: Ht 175.3 cm; Wt 95.5 kg
[~2019-03-27 11:50] MED LIST changes: +CARV3.1244 PO; -COR3.125T PO; +LACT10SO32 PO; -LACT10SO67 PO; +LEVO125T8 PO; -LEVO200T8 PO; -LISI2.5T2 PO; +RIFA550T PO; +VENL150C58 PO; -VENL75CA61 PO
--- NOTE | 2019-03-27 14:17 | NUR ---
Pt reports he is tired of his back, neck and shoulder pain. Pt states " I'm drinking myself to daily" because of the pain. Pt with slurred speech and reports he had approx 7 shots of rum prior to coming to ED. Pt denies that he is actively trying to kill himself "now" but reports he is concerened about his "head" and thinks his amonia is up due to his "bad liver" and chronic drinking.
[2019-03-27 14:39] LABS: BASOPHILS # (AUTO) 0.1 X10'3 (0-0.2); BASOPHILS % (AUTO) 1.2 % (0-1); EOSINOPHILS # (AUTO) 0.2 X10'3 (0-0.9); EOSINOPHILS % (AUTO) 4.1 % (0-6); HEMATOCRIT 46.5 % (42.0-52.0); HEMOGLOBIN 16.2 g/dl (14.0-17.9); LYMPHOCYTES # (AUTO) 1.5 X10'3 (1.1-4.8); LYMPHOCYTES % (AUTO) 35.3 % (21-51); MEAN CORPUSCULAR HEMOGLOBIN 32.2 PG (27.0-31.0); MEAN CORPUSCULAR HGB CONC 34.8 g/dL (33.0-36.5); MEAN CORPUSCULAR VOLUME 92.6 FL (78-98); MEAN PLATELET VOLUME 8.2 FL (7.4-10.4); MONOCYTES # (AUTO) 0.4 X10'3 (0-0.9); MONOCYTES % (AUTO) 10.2 % (2-12); NEUTROPHILS # (AUTO) 2.1 X10'3 (1.8-7.7); NEUTROPHILS % (AUTO) 49.2 % (42-75); PLATELET COUNT 138 X10'3 (140-440); RED BLOOD COUNT 5.02 X10'6 (4.70-6.10); RED CELL DISTRIBUTION WIDTH 17.3 % (11.5-14.5); WHITE BLOOD COUNT 4.3 X10'3 (4.5-11.0)
[2019-03-27 14:55] LABS: ALANINE AMINOTRANSFERASE 53 U/L (12-78); ALBUMIN 3.1 G/DL (3.4-5.0); ALBUMIN/GLOBULIN RATIO 0.7 (1.1-1.5); ALKALINE PHOSPHATASE 49 IU/L (46-116); ANION GAP 9 (8-16); ASPARTATE AMINO TRANSFERASE 81 U/L (10-37); BILIRUBIN,TOTAL 1.8 MG/DL (0.1-1.0); BLOOD UREA NITROGEN 5 MG/DL (7-18); BUN/CREATININE RATIO 6.3 (5.4-32.0); CALCIUM 8.2 MG/DL (8.5-10.1); CHLORIDE 108 MMOL/L (99-107); CREATININE 0.79 MG/DL (0.60-1.10); GLUCOSE 134 MG/DL (70-104); POTASSIUM 3.4 MMOL/L (3.5-5.1); SODIUM 147 MMOL/L (135-145); TOTAL CARBON DIOXIDE 29.7 MMOL/L (24-32); TOTAL PROTEIN 7.4 G/DL (6.4-8.2); eGFR > 90 ML/MIN
[2019-03-27 15:05] LABS: ETHANOL 0.314 GM/DL (0.0-0.010)
[2019-03-27] MEDS ORDERED: lactulose 20gm/30ml cup PO ONE (15:20)
[2019-03-27 17:20] LABS: URINE AMPHETAMINE SCREEN NEGATIVE (Neg); URINE BARBITUATE SCREEN NEGATIVE (Neg); URINE BENZODIAZEPINES SCREEN NEGATIVE (Neg); URINE CANNABINOID SCREEN NEGATIVE (Neg); URINE COCAINE SCREEN NEGATIVE (Neg); URINE METHADONE SCREEN NEGATIVE (Neg); URINE OPIATE SCREEN NEGATIVE (Neg); URINE PHENCYCLIDINE SCREEN NEGATIVE (Neg)
--- NOTE | 2019-03-27 17:46 | NUR ---
[facility]
[2019-03-27] MEDS ORDERED: LEVO300T6 PO (18:03)
[2019-03-27] MEDS ORDERED: THIA100T73 PO (18:03)
--- NOTE | 2019-03-27 18:45 | NUR ---
PT STATES THAT HE IS "IN CHRONIC PAIN , DOES NOT WANT TO TAKE PAIN MEDS, AND IT WOULD BE EASIER TO JUST DRINK , MAYBE DRINK HIMSELF TO " STATES THAT HE WOULD RATHER BE A DRUNK THAN A DRUG ADDICT.
[2019-03-27] MEDS ORDERED: LEVO150T8 PO (19:23)
[2019-03-27] MEDS ORDERED: THIA100T66 PO (19:24)
--- NOTE | 2019-03-27 19:30 | NUR ---
PT UPDATED PLAN OF CARE. INCOURAGED PATIENT TO EAT DINNER. PT CURRENTLY COROPORTATIVE, SITTING UPRIGHT WITH NO COMPLAINTS AT THIS TIME WILL CONTINUE TO MONITER
[2019-03-27] MEDS ORDERED: LACT10SO PO (19:38)
[2019-03-27] MEDS ORDERED: VENL150C58 PO (19:38)
[2019-03-27] MEDS ORDERED: CARV3.1244 PO (19:38)
[2019-03-27] MEDS ORDERED: MIRT15TA8 PO (19:38)
--- NOTE | 2019-03-27 19:50 | NUR ---
PT MOVED TO BED 26 / CURRENT BED BROKEN HOB WILL NOT LAY DOWN.
--- NOTE | 2019-03-27 21:15 | NUR ---
PT RESTING IN BED . DENIES A NEED FOR MEDICATION FOR PAIN RELEIF OR DISCOMFORT. STATES HE WILL FALL ASLEEP SOON .
--- NOTE | 2019-03-27 21:15 | NUR ---
PHARMACY PHONED TO HAVE [facility] REVIEWED. STATED THAT IT WAS NOT COMPLETE DAY SHIFT RN REPORTED REVIEWING ANSD FAXING TO PHARMACY. REREVIEWED MED REC WITH PATIENT . PT DENIES TAKING ANY OF HIS MEDS EVEN IF THE SCRIPTS HAVE BEEN FILLED . STATES HE IS HOMELESS AND IT IS DIFFICULT FINDING PENITENTIARY SO HE CAN REVIEW HAS MEDICATION AND NEEDS. REVIEWED EXTERNAL MEDICATION HX AND MD IS AWARE OF THE ONLY CURRENTLY REPORTED MEDS BEING VIT B-1 AND LEVOTHYROXINE PT VERBALLY DENIES TAKING ANY OF HIS PREVIOUSLY PRESCRIBED MEDICATIONS EVEN THOUGHPATIENTS MEDICATIONS HAVE BEEN TAKEN TO PHARMACY UPON ARRIVAL PT , CONTINUES TO STATE HE DOES NOT TAKE HIS MEDS THAT WERE NOT REVIEWED AND REPORTED ONLY THE VIT B AND THE LEVOTHYROXINE
--- NOTE | 2019-03-27 21:20 | NUR ---
DR SILVA AWARE AND VERBALIZED THAT HE WOULD LIKE TO ONLY CONTINUE THE VIT B 1 AND THE LEVOTHYROXINE AT THIS TIME
--- NOTE | 2019-03-27 22:30 | NUR ---
PT STILL AWAKE . POLITE. NO CHNAGES TO PREVIOUS ASSEMENT AT THIS TIME
--- NOTE | 2019-03-28 01:30 | NUR ---
PT ASLEEP ON HIS RIGHT SIDE RESP RATE UNLABORED . HOB ELEVATED 20 DEGREEA . WILL CONTINUE TO MONITOR AND REASSESS NEEDED
--- NOTE | 2019-03-28 02:30 | NUR ---
PT SLEEPING ON HIS BACK . RESPIRATIONS UNLABORED , PT SELF REPOSITIONING NEEDED. WILL CONTINUE TO REASSESS NEEDED
--- NOTE | 2019-03-28 03:23 | NUR ---
PT SLEEPING PEACFULLY . RESP UNLABORED WILL CONTINUE TO MONITOR
--- NOTE | 2019-03-28 04:51 | NUR ---
PT INDEPENDENTLY REPOSITIONS SELF . RESP UNLABORED WILL CONTINUE TO MONITOR AND REASSESS NEEDED
--- NOTE | 2019-03-28 06:35 | NUR ---
Received report and assumed care for this patient. He was seen rearranging his bedside table, standing at bedside. He is resting in bed peacefully at this time. No distress observed. Will continue to monitor.
--- NOTE | 2019-03-28 08:26 | NUR ---
Breaking Primary RN, pt is sitting on the side of his bed, eating his breakfast, no agitation apparent
[2019-03-28] MEDS: thiamine 100mg tablet PO SCH (09:01)
[2019-03-28] MEDS: levoTHYROXINE 100mcg tablet PO SCH (09:11)
--- NOTE | 2019-03-28 09:45 | NUR ---
Real [facility], is at bedside evaluating patient.
--- NOTE | 2019-03-28 10:15 | NUR ---
Real [facility], states that this patient will be held on a 5150 for SI.
[2019-03-28] MEDS: ibuprofen 200mg tablet PO PRN ×2 (10:43→16:40)
--- NOTE | 2019-03-28 10:49 | NUR ---
Pt c/o pain in back and shoulders. Pt states that he has a history of neck surgery. Gave Pt PRN Motrin 600mg. Observed patient ambulating to bathroom.
--- NOTE | 2019-03-28 11:39 | NUR ---
Breaking primary RN, pt is supine in bed eyes closed, regular breathing present, no s/s of agitation observed
--- NOTE | 2019-03-28 13:30 | NUR ---
Pt is sitting in bed in supine position. c/o pain in back.
[2019-03-28] MEDS ORDERED: ibuprofen 200mg tablet PO PRN (14:35)
--- NOTE | 2019-03-28 15:28 | NUR ---
Received phone call from Danelle at [facility] inquiring about this pt. She states that she may visit the patient tomorrow.
--- NOTE | 2019-03-28 17:05 | NUR ---
Pt states that he just threw up. CIWA started and score is 24. 2mg of Ativan given as well as a one time dose of zofran. Will continue to monitor.
[2019-03-28] MEDS ORDERED: ondansetron 4mg rapidly disintigrating tab PO ONE (17:15)
[2019-03-28] MEDS: LORazepam 1 MG tablet PO PRN (17:21)
--- NOTE | 2019-03-28 19:26 | NUR ---
One to one with the patient to assess severity of depressive symptoms and self harm risk. Assessed for etoh withdrawals. Vital signs with HR of 63 and bp of 146/93 and a history of HTN. The patient is alert and oriented. Made aware of plan of care. The patient was made a fall risk as he has had recent falls and generalized weakness which he reports is chronic. Reports he uses a walker. 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 He was recently kicked out of the [employer] senior care 2nd to his drinking and is now homeless. He was alert and oriented and had no difficulty answering the assessment questions but was circumstantial in his replies. He currently denies any kind of tactile, auditory or visual hallucinations. He reports that his anxiety is high because of his homelessness. He does receive 1200$ per month and wants to look for a room to rent once stable. He does state he has been feeling very depressed and "I have spent a lot of time wishing that I would because of my physical condition and I'm not contributing to society" He has not supportive people in his life.
--- NOTE | 2019-03-28 20:38 | NUR ---
The patient appears to be sleeping at this time.
--- NOTE | 2019-03-28 22:44 | NUR ---
The patient appears to be sleeping
--- NOTE | 2019-03-29 00:35 | NUR ---
The patient appears to be sleeping.
--- NOTE | 2019-03-29 03:04 | NUR ---
The patient appears to be sleeping
--- NOTE | 2019-03-29 04:09 | NUR ---
One to one with the patient to assess for withdrawal symptoms. The patient has no visible tremors or other s/s of withdrawals. He is fully oriented. He denies any kind of psychotic symptoms. He does report anxiety but that is a chronic condition for him. His BP is 173/90 but he has HTN and has been of his medications for HTN. His HR is 71. He denies nausea or headache. He denies tactile disturbances. No agitation. No sweating. He is very cooperative with the plan of care and unit routine.
--- NOTE | 2019-03-29 04:19 | NUR ---
Discussed BP and noncompliance with meds at home with Dr. Dos Santos and order received for a one time dose of patient's past home med coreg 3.125mg.
[2019-03-29] MEDS ORDERED: carVEDilol 3.125mg tablet PO ONE (04:20)
--- NOTE | 2019-03-29 06:50 | NUR ---
pt resting quietly in bed
[2019-03-29] MEDS: levoTHYROXINE 100mcg tablet PO SCH (07:59)
[2019-03-29] MEDS: LORazepam 1 MG tablet PO PRN ×2 (07:59→17:05)
[2019-03-29] MEDS: thiamine 100mg tablet PO SCH (07:59)
[2019-03-29] MEDS: ibuprofen 200mg tablet PO PRN ×2 (07:59→17:05)
--- NOTE | 2019-03-29 08:03 | NUR ---
pt c/o back/neck/shoulder pain and anxiety. Pt resting in his bed, a/ox3, acting appropriatly Administered PRN Ativan & Motrin.
--- NOTE | 2019-03-29 09:11 | NUR ---
RN from [facility] visited with pt. Pts has a senior case manager that it helping him find a home.
--- NOTE | 2019-03-29 11:00 | NUR ---
resting quietly in bed
--- NOTE | 2019-03-29 12:41 | NUR ---
pt resting in bed quietly.
--- NOTE | 2019-03-29 13:35 | NUR ---
sitting up in bed, calm, eating lunch.
--- NOTE | 2019-03-29 16:05 | NUR ---
resting quietly in bed.
--- NOTE | 2019-03-29 17:00 | NUR ---
pt come to RN station and asked about plan of care. RN told him he was on a 5150, hold is up Wednesday AM and pt will be reevaluated by Indira Cortés before that time.
--- NOTE | 2019-03-29 18:02 | NUR ---
pt resting quietly in bed.
--- NOTE | 2019-03-29 19:00 | NUR ---
PT SITTING UPRIGHT IN BED . NO QUESTIONS OR CONCERS AT THIS TIME . PT DENIES THE NEED FOR MEDICATION FOR BACK DISCOMFORT AT THIS TIME . DISCUSSED NON COMPLINACE WITH HYPERTENSIVE MEDS , PT STATES BEING HOMELESS MAKES IT HARD TO BE COMPLIANT CHAPO CONTINUE TO ASSESS
--- NOTE | 2019-03-29 20:00 | NUR ---
PT UP OUT OF BED WITH WALKER TO BATHROOM
--- NOTE | 2019-03-29 22:00 | NUR ---
PT UP OUT OF BED ASKING WHAT TIME IT IS. ENCOURAGED PT TO GET SOME SLEEP PT DENIES THE NEED TO MEDICATE BACK DISCOMFORT STATSES ' its like this all the time "
--- NOTE | 2019-03-29 23:00 | NUR ---
pt currently sleeping on his right side resp unlabored will continue to monitor and assess
--- NOTE | 2019-03-30 00:15 | NUR ---
PT UP OUT ODF BED TO FLOOR. PT [facility] BED ON THE FLOOR NEXT TO HOSPITAL BED. ADVISED THE PATIENT TO GET UP OF THE FLOOR THE FLOOR IS NOT A PLACE FOR PATIENTS TO SLEEP . PT UP OFF THE FLOOR AND BACK TO BED
[2019-03-30] MEDS: LORazepam 1 MG tablet PO PRN (00:34)
[2019-03-30] MEDS: ibuprofen 200mg tablet PO PRN ×2 (00:34→18:07)
--- NOTE | 2019-03-30 00:42 | NUR ---
pt been awake for about 40 min c/o back discomfort repostioned the hob for comfort. pt asked for medication for restlessness and pain rated 8/10 medicated with 600mg of ibprofin po and 2 mg of ativan po for relief will continue to reassess
--- NOTE | 2019-03-30 01:15 | NUR ---
PT SLEEPING COMFORTABLY UNLABORED RESP WILL CONTINUE TO REASSESS
--- NOTE | 2019-03-30 02:10 | NUR ---
PT SLEEPING PEACFULLY WILL CONTINUE TO REASSESS
--- NOTE | 2019-03-30 03:00 | NUR ---
PT SLEEPING PEACFULLY NO CHANGES TO PREVIOUS ASSESSMENT
--- NOTE | 2019-03-30 03:29 | NUR ---
PT UP OUT OF BED TO BATHROOM AND THEN BACK TO BED
--- NOTE | 2019-03-30 05:05 | NUR ---
PT AWOKEN FOR VSS. NO QUESTIONS ASKED CONTENT WILL CONTINUE TO REASSESS AND MONITOR
--- NOTE | 2019-03-30 05:05 | NUR ---
Note jaspalclaire in EDM - 03/30/19 at 0509 by SWATI SITTER AT BEDSIDE PATIENT STILL AWAKE ASKING FOR WATER " I HAVE TO DRINK THE GREEN WATER AND THE RED WATER SO I CAN BE OK" PT GIVEN 120 ML OF WATER. AND THEN ASKED THE PATIENT TO GO BACK TO HIS BED TO AWAIT BREAKFEST . PT COROPORTATIVE , APLOIGIZING , SAYING " TELL EVERYONE I AM SORRY AND I LOVE THEM " WILL CONTINUE TO REASSESS AND MONITOR
--- NOTE | 2019-03-30 05:53 | NUR ---
PT SLEEPING PEACEFULLY RESP UNLABORED WILL CONTINUE TO ASSESS
--- NOTE | 2019-03-30 06:46 | NUR ---
Assumed care of patient. Patient sleeping in bed, respirtations even. No distress noted. Will continue to monitor.
[2019-03-30] MEDS: thiamine 100mg tablet PO SCH (08:10)
[2019-03-30] MEDS: levoTHYROXINE 100mcg tablet PO SCH (08:11)
--- NOTE | 2019-03-30 10:08 | NUR ---
Patient woke to eat few bites of breakfast and now back to sleeping in bed. Respirations even, no disrtress noted.
--- NOTE | 2019-03-30 11:30 | NUR ---
Patient continues to sleep in bed, ambulated to restroom with steady gait. Patient back in bed resting.
--- NOTE | 2019-03-30 13:00 | NUR ---
Patient finished eating lunch and is now resting back in bed. no needs at this time.
--- NOTE | 2019-03-30 14:02 | NUR ---
PT RESTING IN BED. RESPERATIONS EVEN AND UNLABORED. NO DISTRESS NOTED AT THIS TIME.
--- NOTE | 2019-03-30 14:11 | NUR ---
[facility], called for report, will present to provider for possible admission
--- NOTE | 2019-03-30 15:00 | NUR ---
Patient awake, lying quietly in bed. no needs at this time.
--- NOTE | 2019-03-30 17:04 | NUR ---
Patient sleeping in bed, respirtations even, no distress noted.
--- NOTE | 2019-03-30 18:08 | NUR ---
Patient awake in bed and reports 8/10 body pains. Patient medicated. Patient states, "I would still love to drink myself to , I haven't drank in days".
--- NOTE | 2019-03-30 18:33 | NUR ---
Assumed care of patient, pt. sitting quietly and eating dinner at this time. Appears calm and cooperative, rr even and unlabored.
--- NOTE | 2019-03-30 20:30 | NUR ---
Nursing Note: 1:1 completed at bedside, pt. continues to endorse S/I with a plan to drink himself to or slit his wrists. However, pt. states, "There's a myriad of ways I could do it. It's so messy though, I don't want someone to have to clean it up." He reports previous SA of overdosing and cutting. His thought process is circumstantial and he must be redirected several times by this engineering writer throughout the conversation with success. Pt. also endorses V/A/CORDERO. He states, "I watched a whole TV show on the wall today, it was a western." Pt. reports A/CORDERO that "call my name," but denies any command CORDERO. He makes the paranoid delusional statement that he believes other random people outside want to hurt him. Pt. is animated throughout the conversation, joking with this engineering writer and laughing at intervals. He continues to be pleasant and cooperative. No s/s of alcohol withdrawal noted AEB no tremors, n/v, sweating, or abnormal V/S. Will continue to monitor.
--- NOTE | 2019-03-30 21:48 | NUR ---
Obtained new orders from Dr. Almanza to start pt. on Coreg BID and Lactulose 40grams QID. Pt. reported that these are the medications he normally takes, however he has not been receiving them while in the hospital. Will given first dose of medications now.
--- NOTE | 2019-03-30 21:59 | NUR ---
Admission to [facility] is declined at this time. Client requires substance use treatment for ETOH rehab.
[2019-03-30] MEDS: carVEDilol 3.125mg tablet PO SCH (22:03)
[2019-03-30] MEDS: lactulose 20gm/30ml cup PO SCH (22:03)
--- NOTE | 2019-03-30 22:30 | NUR ---
Pt. laying awake in bed at this time, continues to be calm and cooperartive and rr even and unlabored.
--- NOTE | 2019-03-31 00:30 | NUR ---
Pt. asleep at this time, resting on his rt. side, rr even and unlabored.
--- NOTE | 2019-03-31 00:51 | NUR ---
relieving RN for break, pt is sleeping, resp even and unlabored
--- NOTE | 2019-03-31 02:34 | NUR ---
Pt. continues to sleep, makes occassional body adjustments. RR even and ulabored.
--- NOTE | 2019-03-31 04:26 | NUR ---
Pt. continues to sleep, laying on his left side at this time, appears to be resting comfortably.
--- NOTE | 2019-03-31 06:01 | NUR ---
Pt. continues to sleep, laying on his rt. side, rr even and unlabored.
--- NOTE | 2019-03-31 07:00 | NUR ---
Received pt sleeping in bed without signs of distress.
[2019-03-31] MEDS: carVEDilol 3.125mg tablet PO SCH ×2 (07:56→20:25)
[2019-03-31] MEDS: thiamine 100mg tablet PO SCH (07:56)
[2019-03-31] MEDS: levoTHYROXINE 100mcg tablet PO SCH (07:56)
[2019-03-31] MEDS: lactulose 20gm/30ml cup PO SCH ×5 (07:59→20:28)
--- NOTE | 2019-03-31 09:00 | NUR ---
Pt awoke for breakfast. Pt calm and cooperative. Pt continues to endorse vague s.i. but feels safe here. Pt does voice desire to know what the plan for him is and seemed to be ok with being reevaluated today by [facility].
--- NOTE | 2019-03-31 11:00 | NUR ---
Pt sleeping in bed without complaints or signs of distress. Pt evaluated and cooperative with [facility].
--- NOTE | 2019-03-31 13:00 | NUR ---
Pt resting quietly in bed, eyes closed without complaints.
--- NOTE | 2019-03-31 15:00 | NUR ---
After evaluation, it was determined that pt continues to meet criteria for 5150 and pt was placed on another 5150. Pt apparently uha Addendum: 03/31/19 at 1509 by GOMEZ Pt stated he wanted to leave and briefly was unhappy with being held longer. Pt is currently resting quietly in bed without complaints.
--- NOTE | 2019-03-31 17:00 | NUR ---
Pt lying awake in bed without complaints. Pt pleasant upon approach and is able to smile at a joke.
--- NOTE | 2019-03-31 21:25 | NUR ---
Patient is sleeping in a supine position. In view from nursing station.
--- NOTE | 2019-03-31 22:57 | NUR ---
Patient is wide awake, supine position. Patient states he can't sleep. Patient also complains of chronic all over pain. Patient is friendly, he rests quietly.
[2019-03-31] MEDS: ibuprofen 200mg tablet PO PRN (23:21)
[2019-03-31] MEDS: temazepam 15mg capsule PO PRN (23:22)
--- NOTE | 2019-03-31 23:48 | NUR ---
Patient laying supine in bed. He is awake but, not feeling sleepy as of yet.
--- NOTE | 2019-04-01 00:32 | NUR ---
Patient is up from bed. Asking for more water. Patient given more water. Back to bed, not sleeping as of yet.
--- NOTE | 2019-04-01 05:26 | NUR ---
Patient is sleeping quietly on his right side. In view from nursing station.
--- NOTE | 2019-04-01 06:33 | NUR ---
Pt resting quietly in bed.
[2019-04-01] MEDS: thiamine 100mg tablet PO SCH (08:34)
[2019-04-01] MEDS: lactulose 20gm/30ml cup PO SCH ×4 (08:34→20:11)
[2019-04-01] MEDS: carVEDilol 3.125mg tablet PO SCH ×2 (08:34→20:10)
[2019-04-01] MEDS: ibuprofen 200mg tablet PO PRN ×2 (08:39→17:14)
[2019-04-01] MEDS: levoTHYROXINE 100mcg tablet PO SCH (08:40)
--- NOTE | 2019-04-01 08:47 | NUR ---
sitting up in bed eating breakfast. Calm and coppertive. No needs at this time.
--- NOTE | 2019-04-01 10:10 | NUR ---
pt got cleaned up this AM in the bathroom. Now sitting in bed calm and cooperative.
--- NOTE | 2019-04-01 12:13 | NUR ---
pt walking around the unit, steady on his feet. Calm.
--- NOTE | 2019-04-01 13:41 | NUR ---
pt resting quietly in bed.
--- NOTE | 2019-04-01 14:56 | NUR ---
pt resting quietly in bed.
--- NOTE | 2019-04-01 16:32 | NUR ---
pt up to bathroom. Stated boredom while being in the unit but had a sense of humor. RN sympathized. Provided snack per pt request. Pt now sitting quietly in bed.
[2019-04-01] MEDS: temazepam 15mg capsule PO PRN (22:52)
--- NOTE | 2019-04-01 23:43 | NUR ---
pt is up chatting with tech. pt is appropriate and talkative.
--- NOTE | 2019-04-02 00:34 | NUR ---
pt is sleeping, no s/s of distress noted, will continue to monitor.
--- NOTE | 2019-04-02 02:46 | NUR ---
pt continues to sleep, no s/s of distress noted.
--- NOTE | 2019-04-02 03:42 | NUR ---
pt continues to sleep, no s/s of distress noted.
--- NOTE | 2019-04-02 06:30 | NUR ---
Pt got up, went to the bathroom then returned to bed.
[2019-04-02] MEDS: levoTHYROXINE 100mcg tablet PO SCH (07:31)
[2019-04-02] MEDS: carVEDilol 3.125mg tablet PO SCH ×2 (07:31→20:58)
[2019-04-02] MEDS: thiamine 100mg tablet PO SCH (07:32)
[2019-04-02] MEDS: lactulose 20gm/30ml cup PO SCH ×4 (07:32→21:00)
[2019-04-02] MEDS: ibuprofen 200mg tablet PO PRN (07:33)
--- NOTE | 2019-04-02 07:50 | NUR ---
When asked about his depression today, pt replied, "well it's there." Pt admits to thinking about ending his life. Pt states he has thought of at least 4 ways he could do it here. Pt contracts for safety, states will not try anything while here, despite thoughts of how he could do it. Pt states he sees Dr Bartlett in the community. Pt states he was diagnosed with acute depression and anxiety. Pt denies HI and VH. Pt denies AH today though states he has heard voices in the past. "They don't tell me to do anything bad."
--- NOTE | 2019-04-02 08:18 | NUR ---
Pt is sitting up on the side of his bed eating breakfast.
--- NOTE | 2019-04-02 09:59 | NUR ---
Pt lying quietly in bed on his back with his eyes closed.
--- NOTE | 2019-04-02 11:10 | NUR ---
COVERING LAZ RN FOR LUNCH BREAK. PATIENT AMBULATED TO BATHROOM AND BACK WNL.
--- NOTE | 2019-04-02 12:00 | NUR ---
Pt lying quietly in bed awake.
--- NOTE | 2019-04-02 12:41 | NUR ---
Note undone in EDM - 04/02/19 at 1258 by SHEEBA Pt states he feels like a prisoner and really wants a cigarette. Offered to obtain orders for a nicotine patch or nicotine lozenges, pt declined stating that he enjoys smoking and he will wait until he can have a cigarette. Pt remarked that the things he said earlier didn't mean that he is suicidal. Pt states he only came to the hospital because his ammonia level was high. Pt is wanting to leave. Offered to provide reading material for him, pt stated he can't read because he doesn't have his reading glasses but they are somewhere in his belongings. He believes they are either in his walker or in his jacket pocket. Looked through pt's walker, no glasses found. Spoke with PCT from [facility], he will check the ambulance lockers for pt's belongings.
--- NOTE | 2019-04-02 12:41 | NUR ---
Pt states he feels like a prisoner and really wants a cigarette. Offered to obtain orders for a nicotine patch or nicotine lozenges, pt declined stating that he enjoys smoking and he will wait until he can have a cigarette. Pt remarked that the things he said earlier didn't mean that he is suicidal. Pt states he only came to the hospital because his ammonia level was high. Pt is wanting to leave. Offered to provide reading material for him, pt stated he can't read because he doesn't have his reading glasses but they are somewhere in his belongings. He believes they are either in his walker or in his jacket pocket. Looked through pt's walker, no glasses found. Spoke with PCT from [facility], he will check the ambulance lockers for pt's glasses.
--- NOTE | 2019-04-02 13:53 | NUR ---
Pt inquiring as to whether or not [facility] will come and see him today. Explained that since his hold is up tomorrow that more than likely he will be re-evaluated then. Offered to speak with county worker and have him come speak with him today. Pt stated, "nah that's okay, I can wait until tomorrow."
--- NOTE | 2019-04-02 13:53 | NUR ---
Pt up to the bathroom.
--- NOTE | 2019-04-02 15:50 | NUR ---
Pt awake lying quietly in bed on his back.
--- NOTE | 2019-04-02 17:50 | NUR ---
Pt up to the bathroom.
--- NOTE | 2019-04-02 19:30 | NUR ---
Patient is awake, well oriented, cooperative. Patient states he wants to go home. Patient not discussing S/I or H/I now. Presents as hypomanic. Patient desires his reading glasses. The glasses are not in his belognings. Patient ate a full meal. Patient is medication compliant save for his nightime lactulose. Patient is cooperative with staff.
[2019-04-02] MEDS: temazepam 15mg capsule PO PRN (20:58)
--- NOTE | 2019-04-02 21:10 | NUR ---
Patient resting quietly, supine in bed.
--- NOTE | 2019-04-02 23:48 | NUR ---
Patient is awake, supine in bed. Resting quietly.
[2019-04-03] MEDS ORDERED: temazepam 15mg capsule PO ONE (00:15)
[2019-04-03] MEDS ORDERED: temazepam 15mg capsule PO PRN (00:15)
--- NOTE | 2019-04-03 00:15 | NUR ---
Patient is awake, states he cannot sleep. This real estate underwriter spoke with ER . Order received for Restoril 15 mg now PO, then scheduled QHS PRN for sleep.
[2019-04-03 05:36] VITALS: BP 130/62
--- NOTE | 2019-04-03 06:28 | NUR ---
I have received report from MADISON Mcknight. All questions have been answered, and I have assumed pt care.
--- NOTE | 2019-04-03 07:09 | NUR ---
Pt states he knows his hold is up today, and that he is waiting to hear from mental health. [facility]" and after he receives his money April 21, he will travel to [place], [place] where he knows some people.
[2019-04-03] MEDS: lactulose 20gm/30ml cup PO SCH (08:00)
[2019-04-03] MEDS: levoTHYROXINE 100mcg tablet PO SCH (08:15)
[2019-04-03] MEDS: thiamine 100mg tablet PO SCH (08:15)
[2019-04-03] MEDS: carVEDilol 3.125mg tablet PO SCH (08:15)
--- NOTE | 2019-04-03 09:43 | NUR ---
pt resting in bed
--- NOTE | 2019-04-03 10:23 | NUR ---
pt speaking with [facility] worker.
--- NOTE | 2019-04-03 11:30 | NUR ---
pt in pleasant mood. joking with RN
== END 2019-04-03 12:13 ==
LOC: ER 11:51
DX: R45.851 Suicidal ideations (principal); E72.20 Disorder of urea cycle metabolism, unspecified; F10.920 Alcohol use, unspecified with intoxication, uncomplicated; J44.9 Chronic obstructive pulmonary disease, unspecified; E03.9 Hypothyroidism, unspecified; G89.29 Other chronic pain; F41.9 Anxiety disorder, unspecified; F17.200 Nicotine dependence, unspecified, uncomplicated; Z60.2 Problems related to living alone; Z56.0 Unemployment, unspecified; Z59.0 Homelessness; Z79.899 Other long term (current) drug therapy; Y90.0 Blood alcohol level of less than 20 mg/100 ml
CPT/HCPCS: 36415; 80053; 80305; 80320; 82140; 85025; 99285

== ENCOUNTER 2019-04-09 07:23 | Emergency (ER) | payer MEDICARE, MEDICAID ==
[~2019-04-09] VITALS: Ht 175.3 cm; Wt 97.7 kg
[~2019-04-09 07:23] MED LIST changes: -ALBU18HF2 INH; -CARV3.1244 PO; -LACT10SO32 PO; -LEVO125T8 PO; +LEVO150T8 PO; -MIRT15TA8 PO; -OXYB5TAB16 PO; -RIFA550T PO; +THIA100T66 PO; -VENL150C58 PO
[2019-04-09] MEDS ORDERED: cyclobenzaprine 10mg tablet PO ONE (07:55)
[2019-04-09] MEDS ORDERED: ketorolac trometh inj. 60 MG/2 ML VIAL IM ONE (07:55)
[2019-04-09] MEDS ORDERED: NAPR-56 PO (07:59)
[2019-04-09] MEDS ORDERED: TRAM50TA2 PO (07:59)
[2019-04-09] MEDS ORDERED: dexamethasone 4mg tablet PO ONE (08:00)
[2019-04-09 08:11] VITALS: BP 175/95
[2019-04-09] MEDS ORDERED: HYDROcodone/acetaminophen 10/325mg tab PO ONE (08:45)
== END 2019-04-09 09:35 | disposition home or self-care (01) ==
LOC: ER 07:24
DX: M54.5 Low back pain (principal); G89.29 Other chronic pain; J44.9 Chronic obstructive pulmonary disease, unspecified; E03.9 Hypothyroidism, unspecified; Z56.0 Unemployment, unspecified; Z79.899 Other long term (current) drug therapy
CPT/HCPCS: 96372; 99284; J1885

== ENCOUNTER 2019-05-14 08:18 | Emergency (ER) | payer MEDICARE, MEDICAID ==
[~2019-05-14] VITALS: Ht 175.3 cm; Wt 95.5 kg
[2019-05-14] MEDS ORDERED: normal saline 1000ml 1,000 ML IV ONE (08:30)
[2019-05-14] MEDS ORDERED: ondansetron/PF 4mg/2ml inj IV ONE (08:30)
[2019-05-14] MEDS ORDERED: erythromycin ophthalmic ointment 1gm tube EACHEYE ONE (08:30)
[2019-05-14] MEDS ORDERED: aspirin 325mg tablet PO ONE (08:35)
[2019-05-14 08:57] LABS: EOSINOPHILS # (AUTO) 0.2 X10'3 (0-0.9); HEMOGLOBIN 16.8 g/dl (14.0-17.9); MEAN PLATELET VOLUME 8.1 FL (7.4-10.4)
[2019-05-14 08:59] LABS: BASOPHILS # (AUTO) 0.1 X10'3 (0-0.2); BASOPHILS % (AUTO) 1.1 % (0-1); EOSINOPHILS % (AUTO) 3.2 % (0-6); HEMATOCRIT 47.5 % (42.0-52.0); LYMPHOCYTES % (AUTO) 13.6 % (21-51); MEAN CORPUSCULAR HEMOGLOBIN 32.9 PG (27.0-31.0); MEAN CORPUSCULAR HGB CONC 35.3 g/dL (33.0-36.5); MEAN CORPUSCULAR VOLUME 93.1 FL (78-98); MONOCYTES # (AUTO) 0.8 X10'3 (0-0.9); MONOCYTES % (AUTO) 11.2 % (2-12); NEUTROPHILS # (AUTO) 5.1 X10'3 (1.8-7.7); NEUTROPHILS % (AUTO) 70.9 % (42-75); PLATELET COUNT 139 X10'3 (140-440); RED CELL DISTRIBUTION WIDTH 16.5 % (11.5-14.5); WHITE BLOOD COUNT 7.2 X10'3 (4.5-11.0)
[2019-05-14 09:10] LABS: ALANINE AMINOTRANSFERASE 55 U/L (12-78); ALBUMIN 3.3 G/DL (3.4-5.0); ALBUMIN/GLOBULIN RATIO 0.7 (1.1-1.5); ALKALINE PHOSPHATASE 43 IU/L (46-116); ANION GAP 7 (8-16); ASPARTATE AMINO TRANSFERASE 89 U/L (10-37); BILIRUBIN,TOTAL 1.8 MG/DL (0.1-1.0); BLOOD UREA NITROGEN 9 MG/DL (7-18); BUN/CREATININE RATIO 9.4 (5.4-32.0); CHLORIDE 106 MMOL/L (99-107); CREATININE 0.96 MG/DL (0.60-1.10); GLUCOSE 97 MG/DL (70-104); MAGNESIUM 1.7 MG/DL (1.5-2.4); POTASSIUM 3.8 MMOL/L (3.5-5.1); SODIUM 141 MMOL/L (135-145); TOTAL CARBON DIOXIDE 28.1 MMOL/L (24-32); TOTAL PROTEIN 7.9 G/DL (6.4-8.2); eGFR 79 ML/MIN
[2019-05-14 09:26] LABS: CALCIUM 8.3 MG/DL (8.5-10.1)
--- NOTE | 2019-05-14 10:30 | NUR ---
Patient denies any needs at this time.
--- NOTE | 2019-05-14 11:30 | NUR ---
Patient sleeping. Respirations unlabored. NAD
[2019-05-14 11:58] VITALS: BP 140/76
[2019-05-14] MEDS ORDERED: ERYT1OIN6 EACHEYE (12:59)
[2019-05-14] MEDS ORDERED: ketorolac trometh. 30mg/ml inj. IV ONE (13:00)
== END 2019-05-14 13:33 | disposition home or self-care (01) ==
LOC: ER 08:18
DX: R55 Syncope and collapse (principal); J00 Acute nasopharyngitis [common cold]; J44.9 Chronic obstructive pulmonary disease, unspecified; E03.9 Hypothyroidism, unspecified; G89.29 Other chronic pain; F17.200 Nicotine dependence, unspecified, uncomplicated; Z59.0 Homelessness; Z56.0 Unemployment, unspecified; Z79.899 Other long term (current) drug therapy
CPT/HCPCS: 36415; 71045; 80053; 83735; 84484; 85025; 93005; 96361; 96374; 96375; 99284; J1885; J2405; J7030

== ENCOUNTER 2019-05-17 23:23 | Inpatient (IN) | payer MEDICARE, MEDICAID ==
[~2019-05-17] VITALS: Ht 175.3 cm; Wt 81.8 kg
[~2019-05-17 23:23] MED LIST changes: +ERYT1OIN6 EACHEYE
[2019-05-18 00:12] LABS: BASOPHILS # (AUTO) 0.1 X10'3 (0-0.2); EOSINOPHILS # (AUTO) 0.7 X10'3 (0-0.9); HEMATOCRIT 44.2 % (42.0-52.0); MEAN PLATELET VOLUME 7.9 FL (7.4-10.4); MONOCYTES # (AUTO) 0.9 X10'3 (0-0.9)
[2019-05-18 00:13] LABS: BASOPHILS % (AUTO) 0.9 % (0-1); HEMOGLOBIN 15.8 g/dl (14.0-17.9); LYMPHOCYTES % (AUTO) 31.6 % (21-51); MEAN CORPUSCULAR HEMOGLOBIN 33.1 PG (27.0-31.0); MEAN CORPUSCULAR HGB CONC 35.7 g/dL (33.0-36.5); MEAN CORPUSCULAR VOLUME 92.8 FL (78-98); MONOCYTES % (AUTO) 9.3 % (2-12); NEUTROPHILS # (AUTO) 4.9 X10'3 (1.8-7.7); NEUTROPHILS % (AUTO) 51.2 % (42-75); PLATELET COUNT 175 X10'3 (140-440); RED BLOOD COUNT 4.76 X10'6 (4.70-6.10); RED CELL DISTRIBUTION WIDTH 16.4 % (11.5-14.5); WHITE BLOOD COUNT 9.5 X10'3 (4.5-11.0)
[2019-05-18 00:25] LABS: ALANINE AMINOTRANSFERASE 57 U/L (12-78); ALBUMIN 3.1 G/DL (3.4-5.0); ALBUMIN/GLOBULIN RATIO 0.7 (1.1-1.5); ALKALINE PHOSPHATASE 47 IU/L (46-116); ANION GAP 8 (8-16); ASPARTATE AMINO TRANSFERASE 106 U/L (10-37); BLOOD UREA NITROGEN 8 MG/DL (7-18); CALCIUM 8.8 MG/DL (8.5-10.1); CHLORIDE 107 MMOL/L (99-107); GLUCOSE 97 MG/DL (70-104); LIPASE 368 U/L (73-393); POTASSIUM 3.9 MMOL/L (3.5-5.1); SODIUM 141 MMOL/L (135-145); TOTAL CARBON DIOXIDE 25.7 MMOL/L (24-32); TOTAL PROTEIN 7.3 G/DL (6.4-8.2); eGFR > 90 ML/MIN
[2019-05-18 00:46] LABS: ANISOCYTOSIS 1+; PLATELET ESTIMATE NORMAL; TOTAL CELLS COUNTED 100
[2019-05-18 03:29] LABS: CLARITY,URINE CLEAR (Clear); COLOR,URINE YELLOW (Yellow); GLUCOSE, URINE NEGATIVE (Neg); KETONES,URINE NEGATIVE (Neg); LEUKOCYTE ESTERASE ,URINE NEGATIVE (Neg); NITRITES, URINE NEGATIVE (Neg); OCCULT BLOOD,URINE NEGATIVE (Neg); PROTEIN,URINE NEGATIVE (Neg)
[2019-05-18 03:31] LABS: UA COLLECTION TYPE STRAIGHT CATH
--- NOTE | 2019-05-18 04:06 | NUR ---
Pt reports over the past week he has been having symptoms of being"fuzzy", his speech has been slower, and he fell down yesterday. States no current drinking and no drug use. smokes 10 cigarettes daily. audible wheezing noted. BP 170/100.
[2019-05-18] MEDS ORDERED: albuterol 2.5 MG/3 ML nebule NEB ONE (04:20)
--- NOTE | 2019-05-18 04:20 | NUR ---
DR CABRERA UPDATED OF PTS WHEEZING. VERBAL RECEIVED FOR SVN. NASCIMENTO TO ALSO GIVE DECADRON THEN LIKELY DC.
--- NOTE | 2019-05-18 04:45 | NUR ---
DR BABCOCK AT BEDSIDE FOR ADMISSION
[2019-05-18] MEDS ORDERED: magnesium hydroxide 30ml (MOM) UD suspension PO PRN (04:55)
[2019-05-18] MEDS ORDERED: mag hydrox/Alum hydrox/simeth 30ml oral suspension PO PRN (04:55)
[2019-05-18] MEDS ORDERED: ondansetron/PF 4mg/2ml inj IV PRN (04:55)
--- NOTE | 2019-05-18 06:25 | NUR ---
Received report from Liliya WALLACE.
--- NOTE | 2019-05-18 06:32 | NUR ---
REPORT GIVEN TO MADISON HUBBARD, NEURO. PT WITH STABLE VS. CURRENTLY SLEEPING IPA 4010.
--- NOTE | 2019-05-18 07:07 | NUR ---
Patient in room from ER, resting comfortably.
--- NOTE | 2019-05-18 07:43 | NUR ---
PAGER ID: [phone] MESSAGE: [id number] Sadiq Duval On admission, I found eggs and two louse on patients head. Willem Philip recommends oral Ivenmectin wt based, although side effects are liver related and taj Hanna [id number]
[2019-05-18 07:45] VITALS: BP 143/97
[2019-05-18] MEDS ORDERED: Ivermectin 3mg tablet PO SCH (07:50)
[2019-05-18] MEDS: levoTHYROXINE 100mcg tablet PO SCH (07:54)
[2019-05-18] MEDS ORDERED: lactulose 20gm/30ml cup PO SCH (08:00)
[2019-05-18] MEDS: lactulose 20gm/30ml cup PO SCH ×3 (09:23→20:30)
[2019-05-18 10:00] VITALS: BP 136/75
[2019-05-18] MEDS ORDERED: Permethrin Cream 60gm TP ONE (11:45)
[2019-05-18 18:35] VITALS: BP 122/69
--- NOTE | 2019-05-18 18:38 | NUR ---
Problems reprioritized. Patient report given, questions answered & plan of care reviewed with Velia WALLACE.
[2019-05-18 22:00] VITALS: BP 127/61
--- NOTE | 2019-05-18 23:48 | NUR ---
pt resting - c/o back pain, but back to sleep w/o difficulty. will give ordered tylenol when pt wakes if still in pain.
[2019-05-19] MEDS: acetaminophen 325mg tablet PO PRN ×2 (03:18→22:04)
[2019-05-19 03:42] VITALS: BP 127/65
--- NOTE | 2019-05-19 06:26 | NUR ---
reported to days. noted pt had 2 BM's last night. uses call light appropriately
[2019-05-19 06:50] LABS: BASOPHILS # (AUTO) 0.1 X10'3 (0-0.2); BASOPHILS % (AUTO) 1.1 % (0-1); EOSINOPHILS # (AUTO) 0.5 X10'3 (0-0.9); EOSINOPHILS % (AUTO) 4.4 % (0-6); HEMATOCRIT 42.4 % (42.0-52.0); LYMPHOCYTES # (AUTO) 2.6 X10'3 (1.1-4.8); LYMPHOCYTES % (AUTO) 24.1 % (21-51); MEAN CORPUSCULAR HEMOGLOBIN 33.2 PG (27.0-31.0); MEAN CORPUSCULAR HGB CONC 35.4 g/dL (33.0-36.5); MEAN PLATELET VOLUME 8.2 FL (7.4-10.4); MONOCYTES # (AUTO) 1.5 X10'3 (0-0.9); MONOCYTES % (AUTO) 13.7 % (2-12); NEUTROPHILS % (AUTO) 56.7 % (42-75); PLATELET COUNT 160 X10'3 (140-440); RED BLOOD COUNT 4.51 X10'6 (4.70-6.10); RED CELL DISTRIBUTION WIDTH 16.7 % (11.5-14.5); WHITE BLOOD COUNT 10.6 X10'3 (4.5-11.0)
[2019-05-19 07:33] LABS: ALANINE AMINOTRANSFERASE 46 U/L (12-78); ALBUMIN 2.7 G/DL (3.4-5.0); ALBUMIN/GLOBULIN RATIO 0.7 (1.1-1.5); ALKALINE PHOSPHATASE 40 IU/L (46-116); ANION GAP 9 (8-16); ASPARTATE AMINO TRANSFERASE 82 U/L (10-37); BILIRUBIN,TOTAL 1.4 MG/DL (0.1-1.0); BLOOD UREA NITROGEN 10 MG/DL (7-18); BUN/CREATININE RATIO 10.3 (5.4-32.0); CALCIUM 8.4 MG/DL (8.5-10.1); CHLORIDE 108 MMOL/L (99-107); CREATININE 0.97 MG/DL (0.60-1.10); GLUCOSE 81 MG/DL (70-104); POTASSIUM 3.6 MMOL/L (3.5-5.1); SODIUM 144 MMOL/L (135-145); TOTAL CARBON DIOXIDE 27.1 MMOL/L (24-32); TOTAL PROTEIN 6.6 G/DL (6.4-8.2); eGFR 78 ML/MIN
[2019-05-19] MEDS: levoTHYROXINE 100mcg tablet PO SCH (07:51)
[2019-05-19] MEDS: lactulose 20gm/30ml cup PO SCH ×3 (07:51→20:52)
[2019-05-19 10:00] VITALS: BP 155/88
--- NOTE | 2019-05-19 14:16 | NUR ---
Documented for NOC shift 05/19/19 am Addendum: 05/19/19 at 1417 by Cyndi Cavazos RN Amended: Links added.
--- NOTE | 2019-05-19 15:49 | NUR ---
Report to Bee WALLACE
--- NOTE | 2019-05-19 15:50 | NUR ---
Received report from Cyndi WALLACE
[2019-05-19 18:00] VITALS: BP 111/79
--- NOTE | 2019-05-19 18:30 | NUR ---
Patient in room ORTHO 4010. I have received report from MADISON Gamboa and had the opportunity to ask questions and assume patient care.
[2019-05-19] MEDS: rifaximin 550mg tablet PO SCH (20:52)
[2019-05-19 22:00] VITALS: BP 96/53
[2019-05-19] MEDS: ipratropium/albuterol 3ml nebule NEB PRN (23:27)
[2019-05-20 06:00] VITALS: BP 121/74
--- NOTE | 2019-05-20 06:40 | NUR ---
Patient in room ORTHO 4010. I have received report from Teresa WALLACE and had the opportunity to ask questions and assume patient care.
--- NOTE | 2019-05-20 06:49 | NUR ---
Problems reprioritized. Patient report given, questions answered & plan of care reviewed with MADISON Lawler.
[2019-05-20 07:50] LABS: BASOPHILS # (AUTO) 0.1 X10'3 (0-0.2); BASOPHILS % (AUTO) 0.8 % (0-1); EOSINOPHILS # (AUTO) 0.4 X10'3 (0-0.9); HEMATOCRIT 41.1 % (42.0-52.0); HEMOGLOBIN 14.2 g/dl (14.0-17.9); LYMPHOCYTES # (AUTO) 2.3 X10'3 (1.1-4.8); LYMPHOCYTES % (AUTO) 27.3 % (21-51); MEAN CORPUSCULAR HEMOGLOBIN 32.5 PG (27.0-31.0); MEAN CORPUSCULAR HGB CONC 34.7 g/dL (33.0-36.5); MEAN CORPUSCULAR VOLUME 93.7 FL (78-98); MEAN PLATELET VOLUME 8.1 FL (7.4-10.4); MONOCYTES # (AUTO) 1.2 X10'3 (0-0.9); MONOCYTES % (AUTO) 14.2 % (2-12); NEUTROPHILS # (AUTO) 4.4 X10'3 (1.8-7.7); NEUTROPHILS % (AUTO) 52.7 % (42-75); PLATELET COUNT 145 X10'3 (140-440); RED BLOOD COUNT 4.39 X10'6 (4.70-6.10); RED CELL DISTRIBUTION WIDTH 16.5 % (11.5-14.5); WHITE BLOOD COUNT 8.3 X10'3 (4.5-11.0)
[2019-05-20] MEDS: rifaximin 550mg tablet PO SCH ×2 (08:04→20:13)
[2019-05-20] MEDS: lactulose 20gm/30ml cup PO SCH ×3 (08:04→20:14)
[2019-05-20] MEDS: levoTHYROXINE 100mcg tablet PO SCH (08:04)
[2019-05-20 08:06] LABS: ALANINE AMINOTRANSFERASE 47 U/L (12-78); ALBUMIN 2.6 G/DL (3.4-5.0); ALBUMIN/GLOBULIN RATIO 0.7 (1.1-1.5); ALKALINE PHOSPHATASE 35 IU/L (46-116); ANION GAP 9 (8-16); ASPARTATE AMINO TRANSFERASE 78 U/L (10-37); BILIRUBIN,TOTAL 1.7 MG/DL (0.1-1.0); BLOOD UREA NITROGEN 10 MG/DL (7-18); BUN/CREATININE RATIO 11.4 (5.4-32.0); CALCIUM 8.3 MG/DL (8.5-10.1); CHLORIDE 108 MMOL/L (99-107); CREATININE 0.88 MG/DL (0.60-1.10); GLUCOSE 77 MG/DL (70-104); POTASSIUM 3.7 MMOL/L (3.5-5.1); SODIUM 146 MMOL/L (135-145); TOTAL CARBON DIOXIDE 29.1 MMOL/L (24-32); TOTAL PROTEIN 6.5 G/DL (6.4-8.2); eGFR 88 ML/MIN
[2019-05-20 10:00] VITALS: BP 144/73
--- NOTE | 2019-05-20 15:12 | NUR ---
Ambulated patient 300ft inside room. [id number] with fww. Patient tolerated TX well. No LOB. No SOB.
[2019-05-20] MEDS: cephalexin 500mg capsule PO SCH (16:06)
[2019-05-20 18:00] VITALS: BP 135/71
--- NOTE | 2019-05-20 18:18 | NUR ---
Problems reprioritized. Patient report given, questions answered & plan of care reviewed with Teresa WALLACE.
[2019-05-20] MEDS: acetaminophen 325mg tablet PO PRN (20:13)
[2019-05-20] MEDS: ipratropium/albuterol 3ml nebule NEB PRN (20:32)
[2019-05-20 22:00] VITALS: BP 125/74
[2019-05-21] MEDS: cephalexin 500mg capsule PO SCH ×2 (00:14→09:02)
[2019-05-21] MEDS: acetaminophen 325mg tablet PO PRN (04:51)
--- NOTE | 2019-05-21 05:19 | NUR ---
Pt. walked 150 f with nursing. Addendum: 05/21/19 at 0521 by Teresa Joe RN wrong pt.
[2019-05-21 06:31] LABS: BASOPHILS # (AUTO) 0.1 X10'3 (0-0.2); BASOPHILS % (AUTO) 1.2 % (0-1); EOSINOPHILS # (AUTO) 0.3 X10'3 (0-0.9); EOSINOPHILS % (AUTO) 4.5 % (0-6); HEMATOCRIT 39.8 % (42.0-52.0); LYMPHOCYTES # (AUTO) 1.8 X10'3 (1.1-4.8); LYMPHOCYTES % (AUTO) 25.8 % (21-51); MEAN CORPUSCULAR HEMOGLOBIN 32.8 PG (27.0-31.0); MEAN CORPUSCULAR HGB CONC 35.1 g/dL (33.0-36.5); MEAN CORPUSCULAR VOLUME 93.5 FL (78-98); MEAN PLATELET VOLUME 7.9 FL (7.4-10.4); MONOCYTES # (AUTO) 0.9 X10'3 (0-0.9); MONOCYTES % (AUTO) 12.4 % (2-12); NEUTROPHILS % (AUTO) 56.1 % (42-75); PLATELET COUNT 136 X10'3 (140-440); RED BLOOD COUNT 4.26 X10'6 (4.70-6.10); RED CELL DISTRIBUTION WIDTH 16.6 % (11.5-14.5); WHITE BLOOD COUNT 7.1 X10'3 (4.5-11.0)
--- NOTE | 2019-05-21 06:41 | NUR ---
Problems reprioritized. Patient report given, questions answered & plan of care reviewed with MADISON Ashraf.
[2019-05-21 06:51] LABS: ALANINE AMINOTRANSFERASE 45 U/L (12-78); ALBUMIN 2.7 G/DL (3.4-5.0); ALBUMIN/GLOBULIN RATIO 0.7 (1.1-1.5); ALKALINE PHOSPHATASE 34 IU/L (46-116); ANION GAP 6 (8-16); ASPARTATE AMINO TRANSFERASE 74 U/L (10-37); BILIRUBIN,TOTAL 1.7 MG/DL (0.1-1.0); BLOOD UREA NITROGEN 10 MG/DL (7-18); BUN/CREATININE RATIO 11.1 (5.4-32.0); CALCIUM 8.3 MG/DL (8.5-10.1); CHLORIDE 107 MMOL/L (99-107); GLUCOSE 113 MG/DL (70-104); POTASSIUM 3.5 MMOL/L (3.5-5.1); SODIUM 142 MMOL/L (135-145); TOTAL PROTEIN 6.6 G/DL (6.4-8.2); eGFR 86 ML/MIN
--- NOTE | 2019-05-21 06:55 | NUR ---
Patient in room ORTHO 4010. I have received report from Teresa WALLACE and had the opportunity to ask questions and assume patient care.
[2019-05-21] MEDS: levoTHYROXINE 100mcg tablet PO SCH (09:01)
[2019-05-21] MEDS: rifaximin 550mg tablet PO SCH (09:02)
[2019-05-21] MEDS: lactulose 20gm/30ml cup PO SCH (09:04)
[2019-05-21 10:00] VITALS: BP 141/82
[2019-05-21] MEDS ORDERED: LEVO300T2 PO (10:43)
[2019-05-21] MEDS ORDERED: LACT10SO32 PO (10:43)
[2019-05-21] MEDS ORDERED: RIFA550T PO (10:43)
[2019-05-21] MEDS ORDERED: CEPH500C5 PO (10:43)
--- NOTE | 2019-05-21 13:50 | NUR ---
The pt has remained stable. VSS. Labs stable. IV d/guicho and had no s/s of complications. All discharge instructions given and pt stated understanding. [facility] [address] and he can [facility] to [facility] if needed due to [facility] were closed today, Pt was given clothes and shoes due to his contamination with head lice when he came in and his clothing was taken so to not spread any lice to others. He was taken by wheelchair downstairs to leave in a taxi.
[2019-05-21] MEDS ORDERED: lactobacillus rhamnosus 10,000 MMU CELLS/CAPSULE PO SCH (20:00)
--- NOTE | 2019-05-23 15:41 | NUR ---
Case management DC follow up: Non working contact number
== END 2019-05-21 14:54 | disposition home or self-care (01) | DRG 442 ==
LOC: ER 23:24 → ED HOLD 05-18 04:51 → ORTHO 4S 05-18 07:15
PROVIDERS: ADMIT Internal Medicine; ATTEND Family Medicine
DX: K72.90 Hepatic failure, unspecified without coma (principal); L03.811 Cellulitis of head [any part, except face]; B85.0 Pediculosis due to Pediculus humanus capitis; E03.9 Hypothyroidism, unspecified; F32.9 Major depressive disorder, single episode, unspecified; K74.60 Unspecified cirrhosis of liver; F41.9 Anxiety disorder, unspecified; R74.0 Nonspecific elevation of levels of transaminase and lactic acid dehydrogenase [LDH]; G89.29 Other chronic pain; K76.9 Liver disease, unspecified; M54.9 Dorsalgia, unspecified; F17.210 Nicotine dependence, cigarettes, uncomplicated; I10 Essential (primary) hypertension; J44.9 Chronic obstructive pulmonary disease, unspecified; Z59.0 Homelessness; Z91.14 Patient's other noncompliance with medication regimen
CPT/HCPCS: 36415; 70450; 71045; 76700; 80053; 81003; 82140; 83690; 84443; 85025; 87081; 94640; 94760; 99285; G0378

== ENCOUNTER 2020-05-20 13:08 | Emergency (ER) | payer MEDICARE, MEDICAID ==
[~2020-05-20] VITALS: Ht 175.3 cm; Wt 113.8 kg
[~2020-05-20 13:08] MED LIST changes: -ERYT1OIN6 EACHEYE; +FURO40TA4 PO; +LACT10SO PO; -LEVO150T8 PO; +MULT-25 PO; +PANT40TA54 PO; +POTA20TA10 PO; +RIFA550T PO; +SYN0.088T PO; -THIA100T66 PO; +folic acid tablet PO; +thiamine tablet PO
[2020-05-20 15:40] LABS: BASOPHILS % (AUTO) 0.5 % (0-1); EOSINOPHILS # (AUTO) 0.1 X10'3 (0-0.9); EOSINOPHILS % (AUTO) 1.9 % (0-6); HEMOGLOBIN 14.7 g/dl (14.0-17.9); LYMPHOCYTES # (AUTO) 0.9 X10'3 (1.1-4.8); LYMPHOCYTES % (AUTO) 17.2 % (21-51); MEAN CORPUSCULAR HEMOGLOBIN 36.1 PG (27.0-31.0); MEAN CORPUSCULAR HGB CONC 34.2 g/dL (33.0-36.5); MEAN CORPUSCULAR VOLUME 105.6 FL (78-98); MEAN PLATELET VOLUME 7.5 FL (7.4-10.4); MONOCYTES # (AUTO) 0.7 X10'3 (0-0.9); NEUTROPHILS # (AUTO) 3.4 X10'3 (1.8-7.7); NEUTROPHILS % (AUTO) 66.4 % (42-75); PLATELET COUNT 129 X10'3 (140-440); RED BLOOD COUNT 4.07 X10'6 (4.70-6.10); RED CELL DISTRIBUTION WIDTH 14.9 % (11.5-14.5); WHITE BLOOD COUNT 5.2 X10'3 (4.5-11.0)
[2020-05-20 16:02] LABS: ALANINE AMINOTRANSFERASE 38 U/L (12-78); ALBUMIN 2.4 G/DL (3.4-5.0); ALBUMIN/GLOBULIN RATIO 0.4 (1.1-1.5); ALKALINE PHOSPHATASE 76 IU/L (46-116); ANION GAP 7 (8-16); ASPARTATE AMINO TRANSFERASE 112 U/L (10-37); BILIRUBIN,TOTAL 3.5 MG/DL (0.1-1.0); BLOOD UREA NITROGEN 7 MG/DL (7-18); CHLORIDE 106 MMOL/L (99-107); CREATININE 1.16 MG/DL (0.60-1.10); GLUCOSE 98 MG/DL (70-104); SODIUM 141 MMOL/L (135-145); TOTAL CARBON DIOXIDE 28.5 MMOL/L (24-32); TOTAL PROTEIN 8.2 G/DL (6.4-8.2); eGFR 64 ML/MIN
[2020-05-20 17:08] VITALS: BP 148/88
== END 2020-05-20 17:12 | disposition home or self-care (01) ==
LOC: ER 13:09
DX: R60.0 Localized edema (principal); I10 Essential (primary) hypertension; J44.9 Chronic obstructive pulmonary disease, unspecified; E03.9 Hypothyroidism, unspecified; G89.29 Other chronic pain; F41.9 Anxiety disorder, unspecified; F32.9 Major depressive disorder, single episode, unspecified; Z59.0 Homelessness; Z56.0 Unemployment, unspecified; Z79.899 Other long term (current) drug therapy
CPT/HCPCS: 36415; 80053; 85025; 99283

== ENCOUNTER 2020-07-05 16:40 | Emergency (ER) | payer MEDICARE, MEDICAID ==
[~2020-07-05] VITALS: Ht 175.3 cm; Wt 100.0 kg
[~2020-07-05 16:40] MED LIST changes: -LACT10SO PO; +LACT10SO3 PO
[2020-07-05] MEDS ORDERED: levoFLOXACIN-Levaquin 750MG/D5 150 ML IV ONE (18:25)
--- NOTE | 2020-07-05 19:03 | NUR ---
HIS LOWER LEG WOUNDS WERE PHOTOGRAPHED, CLEANSED WITH SKIN TECHNICAL STAFF ENGINEER AND 4X4S AND THE BLISTERS WERE ALL OPENED AND DRAINED. THE WOUND TO THE LEFT LOWER LEG ANTERIOR WAS CULTURED. THAT BLISTER HAD PURULENT SEROUS DRAINAGE, ALL BLISTERS HAD YELLOW SEROUS FLUID. THE POSTERIOR LEFT LOWER LEG HAD A BLISTER WELL THAT WAS DRAINED. NON ADHERENT AND 4X4S AND KERLIX TO BOTH LOWER LEGS APPLIED.
[2020-07-05 19:04] LABS: BASOPHILS # (AUTO) 0.1 X10'3 (0-0.2); BASOPHILS % (AUTO) 0.7 % (0-1); EOSINOPHILS # (AUTO) 0.1 X10'3 (0-0.9); EOSINOPHILS % (AUTO) 1.2 % (0-6); HEMATOCRIT 39.2 % (42.0-52.0); HEMOGLOBIN 13.5 g/dl (14.0-17.9); LYMPHOCYTES # (AUTO) 0.9 X10'3 (1.1-4.8); MEAN CORPUSCULAR HEMOGLOBIN 35.7 PG (27.0-31.0); MEAN CORPUSCULAR HGB CONC 34.5 g/dL (33.0-36.5); MEAN CORPUSCULAR VOLUME 103.3 FL (78-98); MEAN PLATELET VOLUME 8.8 FL (7.4-10.4); MONOCYTES # (AUTO) 1.3 X10'3 (0-0.9); MONOCYTES % (AUTO) 14.5 % (2-12); NEUTROPHILS # (AUTO) 6.7 X10'3 (1.8-7.7); NEUTROPHILS % (AUTO) 73.6 % (42-75); PLATELET COUNT 119 X10'3 (140-440); RED CELL DISTRIBUTION WIDTH 15.3 % (11.5-14.5); WHITE BLOOD COUNT 9.2 X10'3 (4.5-11.0)
[2020-07-05 19:19] LABS: ALANINE AMINOTRANSFERASE 54 U/L (12-78); ALBUMIN 2.2 G/DL (3.4-5.0); ALBUMIN/GLOBULIN RATIO 0.4 (1.1-1.5); ALKALINE PHOSPHATASE 66 IU/L (46-116); ANION GAP 5 (8-16); BILIRUBIN,TOTAL 3.5 MG/DL (0.1-1.0); BLOOD UREA NITROGEN 7 MG/DL (7-18); CALCIUM 8.3 MG/DL (8.5-10.1); CHLORIDE 101 MMOL/L (99-107); GLUCOSE 99 MG/DL (70-104); MAGNESIUM 1.7 MG/DL (1.5-2.4); SODIUM 133 MMOL/L (135-145); TOTAL CARBON DIOXIDE 27.5 MMOL/L (24-32); TOTAL PROTEIN 7.9 G/DL (6.4-8.2); eGFR 75 ML/MIN
[2020-07-05 19:20] LABS: ASPARTATE AMINO TRANSFERASE 159 U/L (10-37); POTASSIUM 4.1 MMOL/L (3.5-5.1)
--- NOTE | 2020-07-05 20:26 | NUR ---
PER [facility] OF [facility], PT STATES UNABLE TO VOID AT THIS TIME
[2020-07-05] MEDS ORDERED: LEVO500T89 PO (21:30)
--- NOTE | 2020-07-05 22:12 | NUR ---
[facility] will be picking him up in about 30 min.
[2020-07-05 22:20] VITALS: BP 122/69
== END 2020-07-05 22:21 | disposition home or self-care (01) ==
LOC: ER 16:42
DX: I87.8 Other specified disorders of veins (principal); L03.116 Cellulitis of left lower limb; L03.115 Cellulitis of right lower limb; I10 Essential (primary) hypertension; J44.9 Chronic obstructive pulmonary disease, unspecified; E03.9 Hypothyroidism, unspecified; G89.29 Other chronic pain; M19.90 Unspecified osteoarthritis, unspecified site; F41.9 Anxiety disorder, unspecified; F32.9 Major depressive disorder, single episode, unspecified; F17.200 Nicotine dependence, unspecified, uncomplicated; Z72.89 Other problems related to lifestyle; Z59.0 Homelessness; Z56.0 Unemployment, unspecified; Z79.899 Other long term (current) drug therapy
CPT/HCPCS: 36415; 71045; 80053; 83735; 84145; 85025; 87070; 87077; 87186; 96365; 99284; J1956

== ENCOUNTER 2021-04-20 18:15 | Emergency (ER) | payer MEDICARE, MEDICAID ==
[~2021-04-20] VITALS: Ht 175.3 cm; Wt 104.3 kg
[~2021-04-20 18:15] MED LIST changes: +POTA-197 PO; -POTA20TA10 PO
[2021-04-20 18:20] VITALS: BP 164/86
[2021-04-20] MEDS ORDERED: AMOX-117 PO (18:53)
[2021-04-20] MEDS ORDERED: PRED20TA PO (18:53)
[2021-04-20] MEDS ORDERED: Cipro HC otic suspension 10ML bottle RIGHT EAR SCH (18:55)
== END 2021-04-20 20:06 | disposition home or self-care (01) ==
LOC: ER 18:16
DX: H66.91 Otitis media, unspecified, right ear (principal); H72.91 Unspecified perforation of tympanic membrane, right ear; H92.01 Otalgia, right ear; I10 Essential (primary) hypertension; J44.9 Chronic obstructive pulmonary disease, unspecified; E03.9 Hypothyroidism, unspecified; G89.29 Other chronic pain; F41.9 Anxiety disorder, unspecified; F32.9 Major depressive disorder, single episode, unspecified; Z72.89 Other problems related to lifestyle; Z56.0 Unemployment, unspecified; Z59.00 Homelessness unspecified; Z79.2 Long term (current) use of antibiotics; Z79.899 Other long term (current) drug therapy
CPT/HCPCS: 99283

== ENCOUNTER 2021-09-01 08:37 | Outpatient (CLI) | payer MEDICARE, MEDICAID ==
[~2021-09-01 08:37] MED LIST changes: +FOLI1TAB27 PO; -FURO40TA4 PO; +LEVO150T8 PO; +MULT-1085 PO; -MULT-25 PO; -PANT40TA54 PO; -POTA-197 PO; -SYN0.088T PO; +THIA50TA10 PO; -folic acid tablet PO; -thiamine tablet PO
== END 2021-09-01 23:59 | disposition home or self-care (01) ==
LOC: RAD 08:37
PROVIDERS: ATTEND Family Medicine
DX: I35.0 Nonrheumatic aortic (valve) stenosis (principal)
CPT/HCPCS: 93306

== ENCOUNTER 2021-10-17 08:28 | Outpatient (CLI) | payer MEDICARE, MEDICAID ==
[2021-10-17] MEDS ORDERED: iohexol 300mg/ml 100ml inj. ONE (08:43)
== END 2021-10-17 23:59 | disposition home or self-care (01) ==
LOC: RAD 08:28
PROVIDERS: ATTEND Family Medicine
DX: K80.20 Calculus of gallbladder without cholecystitis without obstruction (principal); I81 Portal vein thrombosis; I70.0 Atherosclerosis of aorta; I85.00 Esophageal varices without bleeding; K70.30 Alcoholic cirrhosis of liver without ascites
CPT/HCPCS: 74170; J3490; Q9967

== ENCOUNTER 2022-06-12 13:33 | Emergency (ER) | payer MEDICARE, MEDICAID ==
[~2022-06-12] VITALS: Ht 167.6 cm; Wt 72.7 kg
[~2022-06-12 13:33] MED LIST changes: +DULO60CA65 PO; -FOLI1TAB27 PO; +FURO40TA4 PO; +LURA40TA2 PO; -MULT-1085 PO; -RIFA550T PO; +SPIR100T5 PO; -THIA50TA10 PO
[2022-06-12 14:11] LABS: BASOPHILS # (AUTO) 0.1 X10'3 (0-0.2); BASOPHILS % (AUTO) 0.9 % (0-1); EOSINOPHILS # (AUTO) 0.4 X10'3 (0-0.9); EOSINOPHILS % (AUTO) 5.1 % (0-6); HEMOGLOBIN 13.9 g/dl (14.0-17.9); LYMPHOCYTES # (AUTO) 1.6 X10'3 (1.1-4.8); LYMPHOCYTES % (AUTO) 22.7 % (21-51); MEAN CORPUSCULAR HEMOGLOBIN 34.8 PG (27.0-31.0); MEAN CORPUSCULAR VOLUME 102.3 FL (78-98); MEAN PLATELET VOLUME 8.2 FL (7.4-10.4); MONOCYTES # (AUTO) 0.9 X10'3 (0-0.9); NEUTROPHILS # (AUTO) 4.1 X10'3 (1.8-7.7); NEUTROPHILS % (AUTO) 58.3 % (42-75); PLATELET COUNT 115 X10'3 (140-440); RED BLOOD COUNT 4.01 X10'6 (4.70-6.10); RED CELL DISTRIBUTION WIDTH 16.1 % (11.5-14.5); WHITE BLOOD COUNT 7.1 X10'3 (4.5-11.0)
[2022-06-12 14:28] LABS: ALANINE AMINOTRANSFERASE 30 U/L (12-78); ALBUMIN 3.2 G/DL (3.4-5.0); ALBUMIN/GLOBULIN RATIO 0.7 (1.1-1.5); ALKALINE PHOSPHATASE 50 IU/L (46-116); ANION GAP 7 (8-16); ASPARTATE AMINO TRANSFERASE 56 U/L (10-37); BILIRUBIN,TOTAL 1.9 MG/DL (0.1-1.0); BLOOD UREA NITROGEN 12 MG/DL (7-18); BUN/CREATININE RATIO 13.3 (5.4-32.0); CALCIUM 9.2 MG/DL (8.5-10.1); CHLORIDE 107 MMOL/L (99-107); ETHANOL < 0.010 GM/DL (0.0-0.010); GLUCOSE 95 MG/DL (70-104); SODIUM 138 MMOL/L (135-145); TOTAL CARBON DIOXIDE 24.5 MMOL/L (24-32); TOTAL PROTEIN 7.8 G/DL (6.4-8.2); eGFR 85 ML/MIN
[2022-06-12 14:30] LABS: POTASSIUM 4.6 MMOL/L (3.5-5.1)
[2022-06-12] MEDS ORDERED: lactulose 20gm/30ml cup PO ONE (16:00)
--- NOTE | 2022-06-12 16:05 | NUR ---
PLACED CALL TO [facility], THEY STATE THEY WILL ACCEPT PATIENT BACK UPON DISCHARGE
[2022-06-12] MEDS ORDERED: RIFA550T PO (17:16)
[2022-06-12] MEDS ORDERED: THIA50TA10 PO (17:17)
[2022-06-12] MEDS ORDERED: LACT10SO32 PO (17:42)
[2022-06-12 17:44] VITALS: BP 141/72
[2022-06-15] MEDS ORDERED: LEVO150C4 PO (20:16)
== END 2022-06-12 17:57 | disposition home or self-care (01) ==
LOC: ER 13:34
DX: E72.20 Disorder of urea cycle metabolism, unspecified (principal); I11.0 Hypertensive heart disease with heart failure; J44.9 Chronic obstructive pulmonary disease, unspecified; E03.9 Hypothyroidism, unspecified; G89.29 Other chronic pain; M54.9 Dorsalgia, unspecified; F31.9 Bipolar disorder, unspecified; Z59.00 Homelessness unspecified; Z56.0 Unemployment, unspecified; Z79.899 Other long term (current) drug therapy; Z79.1 Long term (current) use of non-steroidal anti-inflammatories (NSAID); Z79.2 Long term (current) use of antibiotics
CPT/HCPCS: 36415; 71045; 80053; 80320; 82140; 85025; 99284; A4349

== ENCOUNTER 2022-06-15 17:01 | Emergency (ER) | payer MEDICARE, MEDICAID ==
[~2022-06-15] VITALS: Ht 175.3 cm; Wt 77.3 kg
[~2022-06-15 17:01] MED LIST changes: +LACT10SO32 PO; +RIFA550T PO; +THIA50TA10 PO
[2022-06-15 17:13] VITALS: BP 118/60
[2022-06-15] MEDS ORDERED: LEVO150C4 PO ×2 (20:16)
[2022-06-17] MEDS ORDERED: DICL100G30 TOP (14:33)
== END 2022-06-15 20:28 | disposition home or self-care (01) ==
LOC: ER 17:01
DX: M54.59 Other low back pain (principal); I10 Essential (primary) hypertension; I11.0 Hypertensive heart disease with heart failure; E03.9 Hypothyroidism, unspecified; G89.29 Other chronic pain; M54.9 Dorsalgia, unspecified; F31.9 Bipolar disorder, unspecified; F17.200 Nicotine dependence, unspecified, uncomplicated; Z59.00 Homelessness unspecified; Z56.0 Unemployment, unspecified; Z79.899 Other long term (current) drug therapy; W19.XXXA Unspecified fall, initial encounter; Y93.89 Activity, other specified; Y92.89 Other specified places as the place of occurrence of the external cause
CPT/HCPCS: 99283

== ENCOUNTER 2022-06-28 13:50 | Emergency (ER) | payer MEDICARE, MEDICAID ==
[~2022-06-28] VITALS: Ht 177.8 cm; Wt 81.0 kg
[~2022-06-28 13:50] MED LIST changes: +DICL100G30 TOP; +DULO30CA52 PO; -DULO60CA65 PO; -FURO40TA4 PO; -LACT10SO3 PO; +LEVO100T9 PO; -LEVO150T8 PO; -THIA50TA10 PO; +thiamine tablet PO
[2022-06-28 13:54] VITALS: BP 114/63
[2022-06-28 14:33] LABS: BASOPHILS # (AUTO) 0.1 X10'3 (0-0.2); BASOPHILS % (AUTO) 1.3 % (0-1); EOSINOPHILS # (AUTO) 0.3 X10'3 (0-0.9); EOSINOPHILS % (AUTO) 4.2 % (0-6); HEMATOCRIT 37.4 % (42.0-52.0); LYMPHOCYTES % (AUTO) 27.4 % (21-51); MEAN CORPUSCULAR HEMOGLOBIN 35.2 PG (27.0-31.0); MEAN CORPUSCULAR HGB CONC 34.7 g/dL (33.0-36.5); MEAN CORPUSCULAR VOLUME 101.6 FL (78-98); MEAN PLATELET VOLUME 8.2 FL (7.4-10.4); MONOCYTES # (AUTO) 1.1 X10'3 (0-0.9); MONOCYTES % (AUTO) 14.7 % (2-12); NEUTROPHILS # (AUTO) 3.8 X10'3 (1.8-7.7); NEUTROPHILS % (AUTO) 52.4 % (42-75); PLATELET COUNT 135 X10'3 (140-440); RED BLOOD COUNT 3.68 X10'6 (4.70-6.10); RED CELL DISTRIBUTION WIDTH 15.6 % (11.5-14.5); WHITE BLOOD COUNT 7.3 X10'3 (4.5-11.0)
[2022-06-28 14:50] LABS: ALANINE AMINOTRANSFERASE 30 U/L (12-78); ALBUMIN/GLOBULIN RATIO 0.7 (1.1-1.5); ALKALINE PHOSPHATASE 94 IU/L (46-116); ANION GAP 7 (8-16); ASPARTATE AMINO TRANSFERASE 63 U/L (10-37); BILIRUBIN,TOTAL 1.2 MG/DL (0.1-1.0); BLOOD UREA NITROGEN 13 MG/DL (7-18); BUN/CREATININE RATIO 10.2 (5.4-32.0); CHLORIDE 104 MMOL/L (99-107); CREATININE 1.28 MG/DL (0.60-1.10); ETHANOL < 0.010 GM/DL (0.0-0.010); GLUCOSE 113 MG/DL (70-104); LIPASE 141 U/L (73-393); POTASSIUM 3.9 MMOL/L (3.5-5.1); SODIUM 140 MMOL/L (135-145); TOTAL CARBON DIOXIDE 29.4 MMOL/L (24-32); TOTAL PROTEIN 7.6 G/DL (6.4-8.2); eGFR 56 ML/MIN
[2022-06-28] MEDS ORDERED: lactulose 20gm/30ml cup PO ONE (14:55)
[2022-06-28] MEDS ORDERED: LEVO100T9 PO ×3 (15:46→16:32)
[2022-06-28] MEDS ORDERED: SPIR100T5 PO ×3 (15:46→16:32)
[2022-06-28] MEDS ORDERED: LURA40TA2 PO ×3 (15:46→16:32)
[2022-06-28] MEDS ORDERED: LACT10SO32 PO ×3 (15:46→16:32)
[2022-06-28] MEDS ORDERED: RIFA550T PO ×3 (15:46→16:32)
[2022-06-28] MEDS ORDERED: DULO30CA52 PO (16:32)
== END 2022-06-28 16:18 | disposition home or self-care (01) ==
LOC: ER 13:51
DX: E72.20 Disorder of urea cycle metabolism, unspecified (principal); Z76.0 Encounter for issue of repeat prescription; I11.0 Hypertensive heart disease with heart failure; E03.9 Hypothyroidism, unspecified; F41.9 Anxiety disorder, unspecified; F32.A Depression, unspecified; G89.29 Other chronic pain; M54.9 Dorsalgia, unspecified; Z59.00 Homelessness unspecified; Z56.0 Unemployment, unspecified; J44.9 Chronic obstructive pulmonary disease, unspecified; Z79.899 Other long term (current) drug therapy; Z79.1 Long term (current) use of non-steroidal anti-inflammatories (NSAID); Z79.2 Long term (current) use of antibiotics
CPT/HCPCS: 36415; 80053; 80320; 82140; 83690; 85025; 99283

== ENCOUNTER 2022-07-03 09:24 | Emergency (ER) | payer MEDICARE, MEDICAID ==
[~2022-07-03] VITALS: Ht 175.3 cm; Wt 104.0 kg
[2022-07-03 13:12] LABS: BASOPHILS # (AUTO) 0.1 X10'3 (0-0.2); EOSINOPHILS # (AUTO) 0.3 X10'3 (0-0.9); EOSINOPHILS % (AUTO) 4.4 % (0-6); HEMATOCRIT 40.8 % (42.0-52.0); HEMOGLOBIN 13.9 g/dl (14.0-17.9); LYMPHOCYTES # (AUTO) 1.9 X10'3 (1.1-4.8); LYMPHOCYTES % (AUTO) 26.8 % (21-51); MEAN CORPUSCULAR HEMOGLOBIN 34.7 PG (27.0-31.0); MEAN CORPUSCULAR VOLUME 102.1 FL (78-98); MEAN PLATELET VOLUME 8.2 FL (7.4-10.4); MONOCYTES # (AUTO) 1.1 X10'3 (0-0.9); MONOCYTES % (AUTO) 14.7 % (2-12); NEUTROPHILS # (AUTO) 3.9 X10'3 (1.8-7.7); NEUTROPHILS % (AUTO) 53.1 % (42-75); PLATELET COUNT 119 X10'3 (140-440); RED CELL DISTRIBUTION WIDTH 15.8 % (11.5-14.5); WHITE BLOOD COUNT 7.3 X10'3 (4.5-11.0)
--- NOTE | 2022-07-03 13:12 | NUR ---
Pt provided with additional pants. Bed change performed. Pt assisted back into bed.
[2022-07-03 13:34] LABS: ALANINE AMINOTRANSFERASE 30 U/L (12-78); ALBUMIN 3.3 G/DL (3.4-5.0); ALBUMIN/GLOBULIN RATIO 0.7 (1.1-1.5); ALKALINE PHOSPHATASE 58 IU/L (46-116); ANION GAP 8 (8-16); ASPARTATE AMINO TRANSFERASE 49 U/L (10-37); BILIRUBIN,TOTAL 1.7 MG/DL (0.1-1.0); BLOOD UREA NITROGEN 15 MG/DL (7-18); BUN/CREATININE RATIO 13.4 (5.4-32.0); CALCIUM 9.2 MG/DL (8.5-10.1); CHLORIDE 105 MMOL/L (99-107); CREATININE 1.12 MG/DL (0.60-1.10); GLUCOSE 104 MG/DL (70-104); SODIUM 139 MMOL/L (135-145); TOTAL CARBON DIOXIDE 26.2 MMOL/L (24-32); TOTAL PROTEIN 8.2 G/DL (6.4-8.2); eGFR 66 ML/MIN
--- NOTE | 2022-07-03 14:25 | NUR ---
Spoke with Olimpia Tamayo at the [facility]. She gave permission for the patient to be transported back to the [place].
[2022-07-03 14:53] VITALS: BP 129/67
[2022-07-07] MEDS ORDERED: DULO60CA65 PO (04:42)
[2022-07-07] MEDS ORDERED: LACT10SO3 PO (04:42)
[2022-07-09] MEDS ORDERED: LACT10SO3 PO (12:48)
[2022-07-09] MEDS ORDERED: RIFA550T PO (12:48)
== END 2022-07-03 14:40 | disposition home or self-care (01) ==
LOC: ER 09:24
DX: K74.60 Unspecified cirrhosis of liver (principal); Z00.00 Encounter for general adult medical examination without abnormal findings; I11.0 Hypertensive heart disease with heart failure; I50.9 Heart failure, unspecified; J44.9 Chronic obstructive pulmonary disease, unspecified; E03.9 Hypothyroidism, unspecified; Z59.00 Homelessness unspecified; Z56.0 Unemployment, unspecified
CPT/HCPCS: 36415; 80053; 82140; 82948; 85025; 99285

== ENCOUNTER 2023-06-23 07:08 | Emergency (ER) | payer MEDICARE, MEDICAID ==
[~2023-06-23] VITALS: Ht 175.3 cm; Wt 93.4 kg
[~2023-06-23 07:08] MED LIST changes: -DICL100G30 TOP; -DULO30CA52 PO; +DULO60CA65 PO; +FURO40TA4 PO; -LACT10SO32 PO; +LACT10SO66 PO; +LACT10SO7 PO; -LEVO100T9 PO; +LEVO137T2 PO; -LURA40TA2 PO; -RIFA550T PO; -thiamine tablet PO
[2023-06-23 08:27] VITALS: BP 119/61; PULSE 77; RESP 16; TEMP 98.4; O2SAT 97
== END 2023-06-23 08:32 | disposition home or self-care (01) ==
LOC: ER 07:08
DX: M25.512 Pain in left shoulder (principal); I11.0 Hypertensive heart disease with heart failure; J44.9 Chronic obstructive pulmonary disease, unspecified; E03.9 Hypothyroidism, unspecified; Z79.899 Other long term (current) drug therapy
CPT/HCPCS: 73030; 99283

== ENCOUNTER 2023-09-01 06:38 | Inpatient (IN) | payer MEDICARE, MEDICAID ==
[~2023-09-01] VITALS: Ht 175.3 cm; Wt 101.7 kg
[~2023-09-01 06:38] MED LIST changes: +FOLI1TAB27 PO; +FURO-150 PO; -FURO40TA4 PO; -LACT10SO66 PO; +PANT40TA54 PO; -SPIR100T5 PO; +SPIR25TA5 PO; +thiamine tablet PO
[2023-09-01 07:35] LABS: BASOPHILS # (AUTO) 0.1 X10'3 (0-0.2); BASOPHILS % (AUTO) 1.4 % (0-1); EOSINOPHILS # (AUTO) 0.4 X10'3 (0-0.9); EOSINOPHILS % (AUTO) 8.2 % (0-6); LYMPHOCYTES # (AUTO) 1.6 X10'3 (1.1-4.8); LYMPHOCYTES % (AUTO) 30.8 % (21-51); MEAN CORPUSCULAR VOLUME 97.3 FL (78-98); MEAN PLATELET VOLUME 8.5 FL (7.4-10.4); MONOCYTES # (AUTO) 0.7 X10'3 (0-0.9); NEUTROPHILS # (AUTO) 2.4 X10'3 (1.8-7.7); NEUTROPHILS % (AUTO) 46.6 % (42-75); PLATELET COUNT 85 X10'3 (140-440); RED BLOOD COUNT 4.12 X10'6 (4.70-6.10); RED CELL DISTRIBUTION WIDTH 17.4 % (11.5-14.5); WHITE BLOOD COUNT 5.1 X10'3 (4.5-11.0)
[2023-09-01 07:38] LABS: INR 1.3 INR; PROTHROMBIN TIME 13.4 SECONDS (9.0-12.0)
[2023-09-01 07:42] LABS: ALANINE AMINOTRANSFERASE 100 U/L (12-78); ALBUMIN 2.8 G/DL (3.4-5.0); ALBUMIN/GLOBULIN RATIO 0.6 (1.1-1.5); ALKALINE PHOSPHATASE 53 IU/L (46-116); ANION GAP 6 (8-16); ASPARTATE AMINO TRANSFERASE 226 U/L (10-37); BILIRUBIN,TOTAL 2.6 MG/DL (0.1-1.0); BLOOD UREA NITROGEN 12 MG/DL (7-18); BUN/CREATININE RATIO 12.5 (10.0-20.0); CALCIUM 8.2 MG/DL (8.5-10.1); CHLORIDE 105 MMOL/L (99-107); CREATININE 0.96 MG/DL (0.60-1.10); GLUCOSE 85 MG/DL (70-104); POTASSIUM 3.9 MMOL/L (3.5-5.1); SODIUM 139 MMOL/L (135-145); TOTAL CARBON DIOXIDE 27.6 MMOL/L (24-32); TOTAL PROTEIN 7.3 G/DL (6.4-8.2); eCRCL 76 ML/MIN; eGFR 78 ML/MIN
[2023-09-01] MEDS: dextrose 5%-water 1,000 ML IV ONE (07:47)
[2023-09-01] MEDS: lactulose 20gm/30ml cup PO ONE (07:48)
[2023-09-01] MEDS: thiamine 100mg/ml 2ml inj. IV ONE (07:48)
[2023-09-01] MEDS: folic acid 1mg/0.2ml inj IV ONE (08:57)
[2023-09-01] MEDS: cyanocobalamin 1,000 mcg/ml inj IM ONE (08:57)
[2023-09-01] MEDS: ipratropium/albuterol 3ml nebule NEB ONE (13:29)
[2023-09-01 13:34] VITALS: PULSE 60; RESP 16
[2023-09-01 13:40] VITALS: PULSE 60; RESP 16; O2SAT 97
[2023-09-01] MEDS ORDERED: ipratropium/albuterol 3ml nebule NEB PRN (13:40)
[2023-09-01] MEDS ORDERED: morphine 2 MG/ML inj. syringe IV PRN (13:40)
[2023-09-01] MEDS ORDERED: magnesium hydroxide 30ml (MOM) UD suspension PO PRN (13:40)
[2023-09-01] MEDS ORDERED: mag hydrox/Alum hydrox/simeth 30ml oral suspension PO PRN (13:40)
[2023-09-01] MEDS ORDERED: ondansetron/PF 4mg/2ml inj IV PRN (13:40)
[2023-09-01] MEDS ORDERED: potassium Cl 40MEQ/1/2NS 520ml 520 ML IV PRN (13:40)
[2023-09-01] MEDS ORDERED: potassium Cl 20 mEq SR tablet PO PRN (13:40)
[2023-09-01] MEDS ORDERED: magnesium Cl slow-release 64mg tablet PO PRN (13:40)
[2023-09-01] MEDS ORDERED: magnesium 4gm in 100ml NS 100 ML IV PRN (13:40)
[2023-09-01] MEDS ORDERED: magnesium 2GM in 50ml NS 50 ML IV PRN (13:40)
[2023-09-01] MEDS: lactulose 20gm/30ml cup PO SCH ×2 (14:09→16:00)
[2023-09-01 15:08] LABS: URINE AMPHETAMINE SCREEN NEGATIVE (Neg); URINE BARBITUATE SCREEN NEGATIVE (Neg); URINE BENZODIAZEPINES SCREEN NEGATIVE (Neg); URINE CANNABINOID SCREEN NEGATIVE (Neg); URINE COCAINE SCREEN NEGATIVE (Neg); URINE METHADONE SCREEN NEGATIVE (Neg); URINE OPIATE SCREEN NEGATIVE (Neg); URINE PHENCYCLIDINE SCREEN NEGATIVE (Neg)
[2023-09-01 19:40] VITALS: BP 108/78; PULSE 55; RESP 12; TEMP 97.4; O2SAT 98
[2023-09-01] MEDS: K and/or MAG REPLACEMENT MC SCH (20:00)
[2023-09-01 20:30] VITALS: RESP 12; O2SAT 98
[2023-09-01 22:00] VITALS: BP 139/76; PULSE 55; RESP 12; TEMP 97.6; O2SAT 95
[2023-09-01 23:42] VITALS: PULSE 55; RESP 16; O2SAT 90
[2023-09-02] VITALS (8 sets, daily range): BP systolic 114–131; BP diastolic 50–76; PULSE 50–85; RESP 12–18; TEMP 97.6–99.8; O2SAT 92–98
[2023-09-02 07:46] LABS: INR 1.2 INR; PROTHROMBIN TIME 12.8 SECONDS (9.0-12.0)
[2023-09-02 07:47] LABS: BASOPHILS # (AUTO) 0.1 X10'3 (0-0.2); BASOPHILS % (AUTO) 3.1 % (0-1); EOSINOPHILS # (AUTO) 0.4 X10'3 (0-0.9); EOSINOPHILS % (AUTO) 7.5 % (0-6); HEMATOCRIT 43.5 % (42.0-52.0); HEMOGLOBIN 14.7 g/dl (14.0-17.9); LYMPHOCYTES # (AUTO) 1.5 X10'3 (1.1-4.8); LYMPHOCYTES % (AUTO) 30.6 % (21-51); MEAN CORPUSCULAR HEMOGLOBIN 33.3 PG (27.0-31.0); MEAN CORPUSCULAR HGB CONC 33.9 g/dL (33.0-36.5); MEAN CORPUSCULAR VOLUME 98.2 FL (78-98); MEAN PLATELET VOLUME 8.3 FL (7.4-10.4); MONOCYTES # (AUTO) 0.7 X10'3 (0-0.9); MONOCYTES % (AUTO) 14.3 % (2-12); NEUTROPHILS # (AUTO) 2.1 X10'3 (1.8-7.7); NEUTROPHILS % (AUTO) 44.5 % (42-75); PLATELET COUNT 88 X10'3 (140-440); RED BLOOD COUNT 4.43 X10'6 (4.70-6.10); RED CELL DISTRIBUTION WIDTH 17.6 % (11.5-14.5); WHITE BLOOD COUNT 4.7 X10'3 (4.5-11.0)
[2023-09-02 08:05] LABS: ALANINE AMINOTRANSFERASE 107 U/L (12-78); ALBUMIN 2.8 G/DL (3.4-5.0); ALKALINE PHOSPHATASE 44 IU/L (46-116); ANION GAP 8 (8-16); ASPARTATE AMINO TRANSFERASE 219 U/L (10-37); BILIRUBIN,TOTAL 3.6 MG/DL (0.1-1.0); BLOOD UREA NITROGEN 10 MG/DL (7-18); BUN/CREATININE RATIO 10.2 (10.0-20.0); CALCIUM 8.1 MG/DL (8.5-10.1); CHLORIDE 105 MMOL/L (99-107); CREATININE 0.98 MG/DL (0.60-1.10); GLUCOSE 88 MG/DL (70-104); POTASSIUM 3.5 MMOL/L (3.5-5.1); SODIUM 140 MMOL/L (135-145); TOTAL CARBON DIOXIDE 27.3 MMOL/L (24-32); eCRCL 74 ML/MIN; eGFR 77 ML/MIN
[2023-09-02 08:08] LABS: ALBUMIN/GLOBULIN RATIO 0.6 (1.1-1.5); TOTAL PROTEIN 7.6 G/DL (6.4-8.2)
[2023-09-02] MEDS ORDERED: spironolactone 25 MG tablet PO SCH (08:15)
[2023-09-02 08:28] LABS: ANISOCYTOSIS 1+; PLATELET ESTIMATE DECREASED; TOTAL CELLS COUNTED 100
[2023-09-02] MEDS: furosemide 20MG tablet PO SCH (12:33)
[2023-09-02] MEDS: folic acid 1mg tablet PO SCH (12:33)
[2023-09-03 06:00] VITALS: BP 144/75; PULSE 62; RESP 13; TEMP 99.2; O2SAT 93
[2023-09-03] MEDS: levoTHYROXINE 112mcg tablet PO SCH (06:36)
[2023-09-03] MEDS: pantoprazole 40mg Tablet.DR PO SCH (06:36)
[2023-09-03] MEDS: levoTHYROXINE 25mcg tablet PO SCH (06:36)
[2023-09-03 06:52] LABS: BASOPHILS # (AUTO) 0.1 X10'3 (0-0.2); BASOPHILS % (AUTO) 1.4 % (0-1); EOSINOPHILS # (AUTO) 0.3 X10'3 (0-0.9); EOSINOPHILS % (AUTO) 5.3 % (0-6); HEMATOCRIT 39.9 % (42.0-52.0); HEMOGLOBIN 13.8 g/dl (14.0-17.9); LYMPHOCYTES # (AUTO) 1.8 X10'3 (1.1-4.8); LYMPHOCYTES % (AUTO) 31.2 % (21-51); MEAN CORPUSCULAR HEMOGLOBIN 33.7 PG (27.0-31.0); MEAN CORPUSCULAR HGB CONC 34.5 g/dL (33.0-36.5); MEAN CORPUSCULAR VOLUME 97.5 FL (78-98); MEAN PLATELET VOLUME 8.5 FL (7.4-10.4); MONOCYTES # (AUTO) 0.9 X10'3 (0-0.9); MONOCYTES % (AUTO) 14.9 % (2-12); NEUTROPHILS # (AUTO) 2.8 X10'3 (1.8-7.7); NEUTROPHILS % (AUTO) 47.2 % (42-75); PLATELET COUNT 90 X10'3 (140-440); RED BLOOD COUNT 4.09 X10'6 (4.70-6.10); RED CELL DISTRIBUTION WIDTH 17.3 % (11.5-14.5); WHITE BLOOD COUNT 5.8 X10'3 (4.5-11.0)
[2023-09-03 06:59] LABS: INR 1.3 INR; PROTHROMBIN TIME 13.1 SECONDS (9.0-12.0)
[2023-09-03 07:12] LABS: ALANINE AMINOTRANSFERASE 88 U/L (12-78); ALBUMIN 2.6 G/DL (3.4-5.0); ALBUMIN/GLOBULIN RATIO 0.6 (1.1-1.5); ALKALINE PHOSPHATASE 44 IU/L (46-116); ANION GAP 2 (8-16); ASPARTATE AMINO TRANSFERASE 163 U/L (10-37); BILIRUBIN,TOTAL 2.9 MG/DL (0.1-1.0); BLOOD UREA NITROGEN 12 MG/DL (7-18); BUN/CREATININE RATIO 10.8 (10.0-20.0); CALCIUM 8.4 MG/DL (8.5-10.1); CHLORIDE 106 MMOL/L (99-107); CREATININE 1.11 MG/DL (0.60-1.10); GLUCOSE 83 MG/DL (70-104); MAGNESIUM 1.7 MG/DL (1.5-2.4); POTASSIUM 3.4 MMOL/L (3.5-5.1); SODIUM 139 MMOL/L (135-145); TOTAL CARBON DIOXIDE 30.6 MMOL/L (24-32); TOTAL PROTEIN 6.9 G/DL (6.4-8.2); eCRCL 65 ML/MIN; eGFR 66 ML/MIN
[2023-09-03] MEDS: duloxetine 30mg CAPSULE.DR PO SCH (07:25)
[2023-09-03] MEDS: thiamine 100mg tablet PO SCH (07:25)
[2023-09-03] MEDS: spironolactone 50 MG tablet PO SCH (07:27)
[2023-09-03 07:31] VITALS: RESP 13; O2SAT 93
[2023-09-03] MEDS: potassium Cl 20 mEq SR tablet PO PRN (08:35)
[2023-09-03] MEDS: potassium Cl 20 mEq SR tablet PO STA (12:47)
[2023-09-03] MEDS ORDERED: POTA-205 PO (13:14)
[2023-09-03] MEDS ORDERED: CALC-522 PO (13:14)
[2023-09-03 15:00] VITALS: BP 137/65; PULSE 61; RESP 18; TEMP 97.9; O2SAT 91
[2023-09-03 15:43] VITALS: PULSE 58; RESP 16; O2SAT 94
[2023-09-03 15:45] VITALS: PULSE 58; RESP 16; O2SAT 94
== END 2023-09-03 18:09 | disposition home or self-care (01) | DRG 432 ==
LOC: ER 06:40 → ED HOLD 13:47 → PCU 3S 19:10
PROVIDERS: ADMIT Family Medicine; ATTEND Family Medicine
DX: K74.60 Unspecified cirrhosis of liver (principal); G93.41 Metabolic encephalopathy; N18.6 End stage renal disease; E51.9 Thiamine deficiency, unspecified; Z59.00 Homelessness unspecified; E72.20 Disorder of urea cycle metabolism, unspecified; I13.2 Hypertensive heart and chronic kidney disease with heart failure and with stage 5 chronic kidney disease, or end stage renal disease; K76.82 Hepatic encephalopathy; J44.9 Chronic obstructive pulmonary disease, unspecified; E03.9 Hypothyroidism, unspecified; M19.09 Primary osteoarthritis, other specified site; K76.9 Liver disease, unspecified; G89.29 Other chronic pain; D69.6 Thrombocytopenia, unspecified; K72.10 Chronic hepatic failure without coma; F41.9 Anxiety disorder, unspecified; F10.10 Alcohol abuse, uncomplicated; F32.A Depression, unspecified; I50.9 Heart failure, unspecified; Y90.9 Presence of alcohol in blood, level not specified; F19.10 Other psychoactive substance abuse, uncomplicated; Z79.899 Other long term (current) drug therapy; Z56.0 Unemployment, unspecified
CPT/HCPCS: 36415; 70450; 71046; 80053; 80305; 80320; 82140; 83735; 84145; 85007; 85025; 85610; 87081; 92508; 92616; 94640; 94760; 97161; 97530; 99285; A6258; C1758; G0378; J3411; J3420; J3490; J7042; J7070

== ENCOUNTER 2023-11-25 12:45 | Emergency (ER) | payer MEDICARE, MEDICAID ==
[~2023-11-25] VITALS: Ht 175.3 cm; Wt 72.7 kg
[~2023-11-25 12:45] MED LIST changes: +ATOR20TA66 PO; -DULO60CA65 PO; -FOLI1TAB27 PO; -FURO-150 PO; +FURO40TA4 PO; +IBUP-1984 PO; +LACT10SO3 PO; -LACT10SO7 PO; -PANT40TA54 PO; +SPIR100T5 PO; -SPIR25TA5 PO; -thiamine tablet PO
[2023-11-25 13:51] LABS: BASOPHILS % (AUTO) 0.3 % (0-1); EOSINOPHILS # (AUTO) 0.2 X10'3 (0-0.9); EOSINOPHILS % (AUTO) 2.5 % (0-6); HEMATOCRIT 41.8 % (42.0-52.0); HEMOGLOBIN 14.3 g/dl (14.0-17.9); LYMPHOCYTES # (AUTO) 1.2 X10'3 (1.1-4.8); LYMPHOCYTES % (AUTO) 16.4 % (21-51); MEAN CORPUSCULAR HEMOGLOBIN 34.9 PG (27.0-31.0); MEAN CORPUSCULAR HGB CONC 34.3 g/dL (33.0-36.5); MEAN CORPUSCULAR VOLUME 101.6 FL (78-98); MEAN PLATELET VOLUME 8.4 FL (7.4-10.4); MONOCYTES # (AUTO) 1.1 X10'3 (0-0.9); MONOCYTES % (AUTO) 15.1 % (2-12); NEUTROPHILS # (AUTO) 4.9 X10'3 (1.8-7.7); NEUTROPHILS % (AUTO) 65.7 % (42-75); PLATELET COUNT 95 X10'3 (140-440); RED BLOOD COUNT 4.11 X10'6 (4.70-6.10); RED CELL DISTRIBUTION WIDTH 14.2 % (11.5-14.5); WHITE BLOOD COUNT 7.5 X10'3 (4.5-11.0)
[2023-11-25 14:04] LABS: ALANINE AMINOTRANSFERASE 42 U/L (12-78); ALBUMIN 2.8 G/DL (3.4-5.0); ALBUMIN/GLOBULIN RATIO 0.7 (1.1-1.5); ALKALINE PHOSPHATASE 40 IU/L (46-116); ANION GAP 6 (8-16); ASPARTATE AMINO TRANSFERASE 72 U/L (10-37); BILIRUBIN,TOTAL 2.6 MG/DL (0.1-1.0); BLOOD UREA NITROGEN 9 MG/DL (7-18); BUN/CREATININE RATIO 7.2 (10.0-20.0); CALCIUM 8.4 MG/DL (8.5-10.1); CHLORIDE 106 MMOL/L (99-107); CREATININE 1.25 MG/DL (0.60-1.10); GLUCOSE 114 MG/DL (70-104); POTASSIUM 3.3 MMOL/L (3.5-5.1); SODIUM 139 MMOL/L (135-145); TOTAL CARBON DIOXIDE 26.8 MMOL/L (24-32); TOTAL PROTEIN 6.9 G/DL (6.4-8.2); eCRCL 58 ML/MIN; eGFR 58 ML/MIN
[2023-11-25 14:07] VITALS: TEMP 98.2
[2023-11-25 14:10] LABS: PRO BRAIN NATRIURETIC PEPTIDE 68 PG/ML (0-125)
[2023-11-25 14:18] LABS: LIPASE 63 U/L (16-77)
[2023-11-25 14:59] LABS: APTT 29 SECONDS (22-32); INR 1.3 INR; PROTHROMBIN TIME 13.3 SECONDS (9.0-12.0)
[2023-11-25] MEDS: normal saline 1000ml 1,000 ML IV ONE (15:26)
[2023-11-25 15:46] LABS: FREE T4 (FREE THYROXINE) < 0.20 NG/DL (0.73-1.40); THYROID STIMULATING HORMONE 200.08 ulU/ml (0.34-4.50)
[2023-11-25 16:59] VITALS: BP 154/81; PULSE 73; RESP 16; O2SAT 98
== END 2023-11-25 17:25 | disposition home or self-care (01) ==
LOC: ER 12:45
DX: R53.1 Weakness (principal); I11.0 Hypertensive heart disease with heart failure; I50.9 Heart failure, unspecified; J44.9 Chronic obstructive pulmonary disease, unspecified; E03.9 Hypothyroidism, unspecified; G89.29 Other chronic pain; M54.9 Dorsalgia, unspecified; F10.90 Alcohol use, unspecified, uncomplicated; F41.9 Anxiety disorder, unspecified; F32.A Depression, unspecified; R41.0 Disorientation, unspecified; Z59.00 Homelessness unspecified; Z56.0 Unemployment, unspecified; Z79.899 Other long term (current) drug therapy; Z79.1 Long term (current) use of non-steroidal anti-inflammatories (NSAID)
CPT/HCPCS: 36415; 70450; 71045; 80053; 83605; 83690; 83880; 84439; 84443; 84484; 85025; 85610; 85730; 87040; 93005; 96360; 99285; J7030